=== PATIENT | male | born 1960 | race Caucasian/White ===

== ENCOUNTER 2018-03-21 07:24 | Day surgery (SDC) | payer BC ==
--- NOTE | 2018-03-20 15:36 | HP ---
DATE OF SURGERY: 03/21/2018 ANTICIPATED PROCEDURE: Colonoscopy. Excision lesion left lower eyelid. HISTORY OF PRESENT ILLNESS: The patient has a papillomatous-like lesion on the left lower eyelid requiring excision or fulguration. He also presents for screening. He is referred by Dr. Mary. PAST MEDICAL HISTORY: ALLERGIES: NONE. MEDICATIONS: See list. PAST SURGICAL HISTORY: Cataract. SOCIAL HISTORY: Positive tobacco. Positive ETOH. FAMILY HISTORY: Negative. PHYSICAL EXAMINATION: VITAL SIGNS: Normal. CHEST: Clear. COR: Regular. ABDOMEN: No palpable organomegaly or mass. IMPRESSION: Screening colonoscopy and removal of lesion left lower eyelid.
[~2018-03-21 07:24] MED LIST: Sodium Chloride 0.9% 1000 ML 1,000 ML ONE; XYLOCAINE 1% HCL 20 ML MDV ONE
[2018-03-21] MEDS ORDERED: DEMEROL 50 MG SDV IV ONE (07:25)
[2018-03-21] MEDS ORDERED: VERSED 5 MG/5 ML IV ONE (07:25)
[2018-03-21] MEDS ORDERED: GlucaGen 1 MG IM ONE (07:25)
[2018-03-21] MEDS ORDERED: Lactated Ringers 1,000 ML IV SCH ×2 (07:30)
[2018-03-21] MEDS ORDERED: Lactated Ringers 1,000 ML IV ONE (07:38)
--- NOTE | 2018-03-21 10:49 | OP ---
SURGERY DATE/TIME: 03/21/2018 0945 PREOPERATIVE DIAGNOSES: 1) Probable skin cancer left infraorbital 1 cm. 2) Patient requiring screening colonoscopy. POSTOPERATIVE DIAGNOSES: 1) Probable skin cancer left infraorbital 1 cm. 2) Patient requiring screening colonoscopy. PROCEDURES: 1) Colonoscopy complete to cecum normal except for moderate internal hemorrhoids. 2) Excision of a suspect lesion left infraorbital 1 cm with a 2 cm elliptical excision and closure. SURGEON: Omega Dodge M.D. SECTION CHIEF: Zacarias Arrington M.D. ANESTHESIA: IV sedation local. COMPLICATIONS: None. CONDITION: Stable. INDICATION: A patient with the two above reasons. DESCRIPTION OF PROCEDURE: Taken to surgery. Routine prep and drape. Elliptical excision. Time out performed. Hemostasis obtained with electrocautery. 1% lidocaine excised with 0.5 mm margins. Hemostasis satisfactory. Closed with simple interrupted sutures #5-0 Prolene. Sterile ointment applied. Anal digital examination satisfactory. Scope introduced. IV sedation was titrated and a fairly generous amount was required. Comfort level was satisfactory. The scope advanced past the splenic and then through a fairly redundant upper colon over under the right side and then down to the base of the cecum, ileocecal valve. Base of the cecum slightly voluminous but no mucosal lesions were noted. There was an orange-yellow throughout the right side. On circumferential withdrawal no mucosal lesions were noted, moderate internal hemorrhoids. The patient tolerated the procedure satisfactorily. PLAN: Follow up in ten years.
[2018-03-21 13:51] VITALS: BP 126/76; PULSE 97; O2SAT 94
== END 2018-03-21 11:35 | disposition home or self-care (01) ==
LOC: SDC 07:24
PROVIDERS: ATTEND Surgery
DX: C44.119 Basal cell carcinoma of skin of left eyelid, including canthus (principal); Z12.11 Encounter for screening for malignant neoplasm of colon; K64.8 Other hemorrhoids
CPT/HCPCS: 88305; J1610; J2175; J2250

== ENCOUNTER 2019-06-12 21:33 | Emergency (ER) | payer BC ==
[2019-06-12 22:23] VITALS: O2SAT 98
[2019-06-12 22:56] LABS: BASOPHIL % 0.5 % (0.0-0.4); Basophil (Absolute #) 0.03 (0-0.4); Eosinophil % 3.2 % (0.00-5.0); Eosinophil (Absolute #) 0.21 (0-0.5); Granulocyte Absolute (ANC) 3.65 (1.4-6.9); Granulocytes % 55.1 % (36.0-66.0); Hematocrit 36.9 % (42-50); Lymphocyte (Absolute #) 1.77 (1.0-4.6); Lymphocytes % 26.7 % (24.0-44.0); Mean Cell Volume 96.1 fl (78-100); Mean Corpuscular Hemoglobin 33.8 pg (26-32); Mean Corpuscular Hgb Concent. 35.2 g/dl (32-36); Mean Platelet Volume 9.5 fl (6-9.5); Monocyte (Absolute #) 0.96 (0.0-1.3); Monocytes % 14.5 % (0.0-12.0); Platelet Count 194 K/mm3 (150-450); Red Blood Count 3.84 M/mm3 (4.1-5.6); Red Cell Distribution Width 11.5 % (11.5-14.0); White Blood Count 6.6 K/mm3 (4.0-10.5)
[2019-06-12 23:01] LABS: ALBUMIN 4.4 g/dL (3.5-5.0); ALKALINE PHOSPHATASE 66 U/L (38-126); ANION GAP 16.2 MEQ/L (5-15); BLOOD UREA NITROGEN 5 mg/dL (9-20); CHLORIDE 96 mmol/L (98-107); Carbon Dioxide 23 mmol/L (22-30); Creatinine 1 0.73 mg/dL (0.66-1.25); Glucose 94 mg/dL (74-106); Potassium 3.7 mmol/L (3.5-5.1); SGOT/AST 82 U/L (17-59); SGPT/ALT 26 U/L (0-50); SODIUM 131 mmol/L (137-145); Total Protein 7.6 g/dL (6.3-8.2)
--- NOTE | 2019-06-13 00:26 | ERPHSYRPT ---
- History of Present Illness Source: patient Exam Limitations: no limitations Patient Subjective Stated Complaint: pt states, "I woke up Sunday night in a sweat, covers were wet, I was up all night. I went to work Sunday and couldn't stay, I was sweating. I went home and went to bed. I got up Sunday to go to work but I called in and went to the Dr. Labwork drawn on and called pt and requested pt be seen in ER. Pt went back to at 4:30 pm and pt was sent to ER. pt's had some sob with this as well. Triage Nursing Assessment: pt alert and oriented, pleasant. Lungs clear, heart tones reg, abd soft with active bs x4 quad, non-tender. Pt denies any pain but states his chest region is sore if he takes a deep breath. Physician History: Pt is a 58 y/o male that presented to the ED secondary to elevated D dimer, and referal from his PCP. Pt did not feel well for a few days, and he saw his PCP, that send him to do some labs. His D dimer was very high, and the PCP, told him to go to the ER, for a CT angio to r/o PE. Pt denies SOB or cough. No chest pain or palpitations. He did have chills and sweats, but no fever. No dysuria, frequency and urgency. No N/V/D or abdominal pain. Timing/Duration: day(s) Severity: moderate Modifying Factors: Improves With: immobilization, rest, acetaminophen, ibuprofen Associated Symptoms: diaphoresis Allergies/Adverse Reactions: No Known Drug Allergies Allergy (Unverified 02/27/12 16:10) Home Medications: Alprazolam 0.5 mg [xanAX 0.5 MG] 0.5 mg PO BID 02/27/12 [History] Lisinopril 20 mg PO DAILY 02/27/12 [History] Omeprazole 20 MG [Prilosec 20 mg] 1 tab PO DAILY 02/27/12 [History] Telmisartan [Micardis] 20 mg PO DAILY 03/15/18 [History] Hydrocodone/Acetaminophen [Hydrocodone-Acetamin 7.5-325] 1 tab PO Q4H PRN PRN [History] Hx Tetanus, Diphtheria Vaccination/Date Given: No Hx Influenza Vaccination/Date Given: No Hx Pneumococcal Vaccination/Date Given: No Immunizations Up to Date: No - Review of Systems Constitutional: Chills, Malaise, Other (diaphoresis) Eyes: No Symptoms Ears, Nose, & Throat: No Symptoms Respiratory: No Cough, No Dyspnea Cardiac: No Chest Pain, No Edema, No Syncope Abdominal/Gastrointestinal: No Abdominal Pain, No Nausea, No Vomiting, No Diarrhea Genitourinary Symptoms: No Dysuria Musculoskeletal: No Back Pain, No Neck Pain Neurological: No Dizziness, No Focal Weakness, No Sensory Changes - Past Medical History Pertinent Past Medical History: Yes Neurological History: No Pertinent History ENT History: Cataracts Cardiac History: Hypertension Respiratory History: No Pertinent History Endocrine Medical History: No Pertinent History Musculoskeletal History: No Pertinent History GI Medical History: GERD History: No Pertinent History Psycho-Social History: No Pertinent History Male Reproductive Disorders: No Pertinent History - Past Surgical History Past Surgical History: Yes Neuro Surgical History: No Pertinent History Cardiac: No Pertinent History Respiratory: No Pertinent History Gastrointestinal: No Pertinent History Genitourinary: No Pertinent History Musculoskeletal: No Pertinent History Male Surgical History: No Pertinent History Other Surgical History: left cataract removed 01/31/2012, skin cancer - Social History Smoking Status: Never smoker Exposure to second hand smoke: No Drug Use: marijuana Patient Lives Alone: Yes - Nursing Vital Signs Nursing Vital Signs: Initial Vital Signs Temperature 98.6 F 06/12/19 21:34 Pulse Rate 81 06/12/19 21:34 Respiratory Rate 17 06/12/19 21:34 Blood Pressure 145/97 06/12/19 21:34 O2 Sat by Pulse Oximetry 98 06/12/19 21:34 Pain Scale Pain Intensity 0 - Physical Exam General Appearance: no apparent distress Eye Exam: PERRL/EOMI, eyes nml inspection Ears, Nose, Throat Exam: normal ENT inspection, TMs normal, pharynx normal, moist mucous membranes Neck Exam: normal inspection, non-tender, supple, full range of motion Respiratory Exam: normal breath sounds, lungs clear, No respiratory distress Cardiovascular Exam: regular rate/rhythm, normal heart sounds, normal peripheral pulses Gastrointestinal/Abdomen Exam: soft, normal bowel sounds, No tenderness, No mass Back Exam: normal inspection, normal range of motion, No CVA tenderness, No vertebral tenderness Extremity Exam: normal inspection, normal range of motion, pelvis stable Neurologic Exam: alert, 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, cooperative, normal mood/affect, nml cerebellar function, nml station & gait, sensation nml, No motor deficits SpO2: 98 - Course Nursing assessment & vital signs reviewed: Yes - CT Exams Chest CT Interpretation: Negative (No PE, no chest pathology) Ordered Tests: Active Orders 24 hr Category Date Time Status CHEST WITH CONTRAST [CT] Stat Exams 06/12/19 23:38 Taken CBC W DIFF Stat Lab 06/12/19 22:27 Completed CMP Stat Lab 06/12/19 22:27 Completed D-DIMER QUANTITATION Stat Lab 06/12/19 22:27 Completed Lactic Acid Stat Lab 06/12/19 22:49 Completed Lab/Rad Data: Laboratory Result Diagrams 06/12/19 22:27 06/12/19 22:27 Laboratory Results 06/12/19 06/12/19 06/12/19 Range/Units 22:49 22:27 22:27 WBC (4.0-10.5) K/mm3 RBC (4.1-5.6) M/mm3 Hgb (12.5-18.0) gm/dl Hct (42-50) % MCV (78-100) fl MCH (26-32) pg MCHC (32-36) g/dl RDW (11.5-14.0) % Plt Count (150-450) K/mm3 MPV (6-9.5) fl Gran % (36.0-66.0) % Eos # (Auto) (0-0.5) Absolute Lymphs (auto) (1.0-4.6) Absolute Monos (auto) (0.0-1.3) Lymphocytes % (24.0-44.0) % Monocytes % (0.0-12.0) % Eosinophils % (0.00-5.0) % Basophils % (0.0-0.4) % Absolute Granulocytes (1.4-6.9) Basophils # (0-0.4) D-Dimer 2767 H* (215-500) ng/mL Sodium 131 L (137-145) mmol/L Potassium 3.7 (3.5-5.1) mmol/L Chloride 96 L (98-107) mmol/L Carbon Dioxide 23 (22-30) mmol/L Anion Gap 16.2 H (5-15) MEQ/L BUN 5 L (9-20) mg/dL Creatinine 0.73 (0.66-1.25) mg/dL Estimated GFR > 60.0 ML/MIN Glucose 94 (74-106) mg/dL Lactic Acid 1.8 (0.4-2.0) Calcium 9.0 (8.4-10.2) mg/dL Total Bilirubin 0.50 (0.2-1.3) mg/dL AST 82 H (17-59) U/L ALT 26 (0-50) U/L Alkaline Phosphatase 66 (38-126) U/L Serum Total Protein 7.6 (6.3-8.2) g/dL Albumin 4.4 (3.5-5.0) g/dL 06/12/19 Range/Units 22:27 WBC 6.6 (4.0-10.5) K/mm3 RBC 3.84 L (4.1-5.6) M/mm3 Hgb 13.0 (12.5-18.0) gm/dl Hct 36.9 L (42-50) % MCV 96.1 (78-100) fl MCH 33.8 H (26-32) pg MCHC 35.2 (32-36) g/dl RDW 11.5 (11.5-14.0) % Plt Count 194 (150-450) K/mm3 MPV 9.5 (6-9.5) fl Gran % 55.1 (36.0-66.0) % Eos # (Auto) 0.21 (0-0.5) Absolute Lymphs (auto) 1.77 (1.0-4.6) Absolute Monos (auto) 0.96 (0.0-1.3) Lymphocytes % 26.7 (24.0-44.0) % Monocytes % 14.5 H (0.0-12.0) % Eosinophils % 3.2 (0.00-5.0) % Basophils % 0.5 (0.0-0.4) % Absolute Granulocytes 3.65 (1.4-6.9) Basophils # 0.03 (0-0.4) D-Dimer (215-500) ng/mL Sodium (137-145) mmol/L Potassium (3.5-5.1) mmol/L Chloride (98-107) mmol/L Carbon Dioxide (22-30) mmol/L Anion Gap (5-15) MEQ/L BUN (9-20) mg/dL Creatinine (0.66-1.25) mg/dL Estimated GFR ML/MIN Glucose (74-106) mg/dL Lactic Acid (0.4-2.0) Calcium (8.4-10.2) mg/dL Total Bilirubin (0.2-1.3) mg/dL AST (17-59) U/L ALT (0-50) U/L Alkaline Phosphatase (38-126) U/L Serum Total Protein (6.3-8.2) g/dL Albumin (3.5-5.0) g/dL - Progress Progress: unchanged Progress Note: 06/13/19 00:25 Pt was seen and examined. His only abnormal lab was D Dimer. Chest for PE study, was negative. Pt was advised to f/u with his PCP for more work up, if needed. Will see patient in: office Counseled pt/family regarding: need for follow-up - Departure Departure Disposition: Home Clinical Impression: Elevated d-dimer Condition: Stable Critical Care Time: No Referrals: WALTER KHALIL [Primary Care Provider] - Additional Instructions: F/U with PCP for more work up.
[2019-06-13 00:28] VITALS: BP 116/79; PULSE 76
--- NOTE | 2019-06-13 09:21 | XRAY ---
Indication: Short of breath and elevated d-dimer. Multiple contiguous axial images obtained through the chest using 80 cc Isovue 370 contrast and PE protocol. Comparison: None There is good opacification of the pulmonary arteries to include the lobar and segmental branches. No filling defect or pulmonary embolus. Heart is not enlarged. Aorta is normal in course and caliber. Distal right paratracheal calcified node. No pathologic mediastinal/hilar lymphadenopathy. Lungs are inflated and clear. Bony thorax intact. Limited upper abdomen demonstrates tiny calcified splenic granuloma and incompletely visualized minimal left perinephric stranding of uncertain clinical significance. Impression: 1. Negative pulmonary embolus. No acute cardiopulmonary abnormalities. 2. Incompletely visualized minimal left perinephric stranding. CT abdomen/pelvis may yield further information if clinically warranted. Comment: Preliminary interpretation was made by [facility] who does not report incidental left renal finding. CT DI 19.60
== END 2019-06-13 00:35 | disposition home or self-care (01) ==
LOC: ED 21:33
DX: R79.89 Other specified abnormal findings of blood chemistry (principal)
CPT/HCPCS: 36415; 71260; 80053; 83605; 85025; 85379; 99284

== ENCOUNTER 2023-05-06 17:47 | Emergency (ER) | payer BC ==
[2023-05-06 18:13] VITALS: TEMP 97
[2023-05-06] MEDS ORDERED: Sodium Chloride 0.9% 1000 ML 1,000 ML IV STA (18:18)
[2023-05-06 18:19] LABS: Absolute Neutrophil Ct (ANC) 8.68 x10^3/uL (1.4-6.9); BASOPHIL % 0.2 % (0.0-0.4); Basophil (Absolute #) 0.02 x10^3/uL (0-0.4); Eosinophil (Absolute #) 0 x10^3/uL (0-0.5); Hematocrit 45.1 % (42-50); Hemoglobin 15.5 g/dL (12.5-18.0); IMMATURE GRAN # 0.09 x10^3u/L (0.00-0.03); IMMATURE GRAN % 0.9 % (0.00-0.4); Lymphocyte (Absolute #) 0.65 x10^3/uL (1.0-4.6); Lymphocytes % 6.5 % (24.0-44.0); Mean Cell Volume 97.4 fL (78-100); Mean Corpuscular Hemoglobin 33.5 pg (26-32); Mean Corpuscular Hgb Concent. 34.4 g/dL (32-36); Mean Platelet Volume 8.6 fL (7.5-11.0); Monocyte (Absolute #) 0.52 x10^3/uL (0.0-1.3); Monocytes % 5.2 % (0.0-12.0); Neutrophil % 87.2 % (36.0-66.0); Platelet Count 242 x10^3/uL (150-450); Red Blood Count 4.63 x10^6/uL (4.1-5.6); Red Cell Distribution Width 12.3 % (11.5-14.0)
--- NOTE | 2023-05-06 18:28 | ERPHSYRPT ---
- History of Present Illness Time Seen by Provider: 05/06/23 18:23 Source: patient Exam Limitations: no limitations Patient Subjective Stated Complaint: Pt reports he was walking down the steps when he lost consciousness causing him to fall and hit his head. Later when try ing to leave the house and get in vehicle pt lost consciousness. Pt reports he is on blood thinners. Skin tear to left hand and laceration to back of head. Triage Nursing Assessment: Pt alert and oriented x3. No apparent respiratory distress. Wheeled to ED cot by family, transferred with assist x1. Accompanied by brother. Skin flushed, warm, dry. Tremors observed. Laceration to back of head, 4cm. Skin tear to top of left hand. Physician History: Pt reports he was walking down the steps when he lost consciousness causing him to fall and hit his head. Later when trying to leave the house and get in vehicle pt lost consciousness. Pt reports he is on blood thinners. Skin tear to left hand and laceration to back of head. Witnessed: unwitnessed Prior Episodes: single episode today Timing/Duration: today Precipitating Factors: none Context: standing Loss of Consciousness: brief (seconds) Charcter of event(s): almost passed out Allergies/Adverse Reactions: No Known Drug Allergies Allergy (Unverified 02/27/12 16:10) Home Medications: ALPRAZolam 0.5 MG [xanAX 0.5 MG] 0.5 mg PO BID PRN 02/27/12 [History] Lisinopril 20 mg PO DAILY 02/27/12 [History] Omeprazole 20 MG [Prilosec 20 mg] 1 tab PO DAILY 02/27/12 [History] Hydrocodone/Acetaminophen [Hydrocodone-Acetamin 7.5-325] 1 tab PO Q4H PRN PRN 03/21/18 [History] Clopidogrel Bisulfate [Plavix] 75 mg PO DAILY 05/06/23 [History] Metoprolol Tartrate 25 mg [Lopressor 25MG Tab] 25 mg PO BID 05/06/23 [History] Hx Tetanus, Diphtheria Vaccination/Date Given: Yes Hx Influenza Vaccination/Date Given: No Hx Pneumococcal Vaccination/Date Given: No Travel Risk - International Travel Have you traveled outside of the country in past 3 weeks: No - Coronavirus Screening Are you exhibiting any of the following symptoms?: No Close contact with a COVID-19 positive Pt in past 14-21 Days: No - Vaccine Status Have you recieved a Covid-19 vaccination: No - Past Medical History Pertinent Past Medical History: Yes Neurological History: No Pertinent History ENT History: Cataracts Cardiac History: Hypertension Respiratory History: No Pertinent History Endocrine Medical History: No Pertinent History Musculoskeletal History: No Pertinent History GI Medical History: GERD History: No Pertinent History Psycho-Social History: Depression Male Reproductive Disorders: No Pertinent History - Past Surgical History Past Surgical History: Yes Neuro Surgical History: No Pertinent History Cardiac: No Pertinent History Respiratory: No Pertinent History Gastrointestinal: No Pertinent History Genitourinary: No Pertinent History Musculoskeletal: No Pertinent History Male Surgical History: No Pertinent History Other Surgical History: left cataract removed 01/31/2012, skin cancer - Social History Smoking Status: Never smoker Exposure to second hand smoke: No Drug Use: none Patient Lives Alone: Yes - Review of Systems Constitutional: Weakness, No Fever, No Chills Eyes: No Symptoms Ears, Nose, & Throat: No Symptoms Respiratory: No Cough, No Dyspnea Cardiac: No Chest Pain, No Edema, No Syncope Abdominal/Gastrointestinal: No Abdominal Pain, No Nausea, No Vomiting, No Diarrhea Genitourinary Symptoms: No Dysuria Musculoskeletal: No Back Pain, No Neck Pain Skin: Other (laceration on scalp), No Rash Neurological: No Dizziness, No Focal Weakness, No Sensory Changes Psychological: No Symptoms Endocrine: No Symptoms Hematologic/Lymphatic: No Symptoms All Other Systems: Reviewed and Negative Physical Exam - Nursing Vital Signs Nursing Vital Signs: Initial Vital Signs Temperature 97 F 05/06/23 17:57 Pulse Rate 111 H 05/06/23 17:57 Respiratory Rate 22 05/06/23 17:57 Blood Pressure 136/90 05/06/23 17:57 O2 Sat by Pulse Oximetry 100 05/06/23 17:57 Pain Scale Pain Intensity 0 - [place] Coma Scale Best Eye Response ([place]): (4) open spontaneously Best Verbal Response ([place]): (5) oriented Best Motor Response ([place]): (6) obeys commands [place] Total: 15 - Physical Exam General Appearance: no apparent distress, alert Eye Exam: bilateral eye: PERRL, EOMI Ears, Nose, Throat Exam: normal ENT inspection, pharynx normal, moist mucous m embranes Neck Exam: normal inspection, non-tender, supple, full range of motion Respiratory: normal breath sounds, lungs clear, No chest tenderness, No respiratory distress Cardiovascular: regular rate/rhythm, capillary refill <2 sec, No murmur, No pulse deficit Gastrointestinal: soft, No tenderness, No distention, No mass Back Exam: normal inspection, normal range of motion, No CVA tenderness, No vertebral tenderness Extremity Exam: normal inspection, normal range of motion, pelvis stable, No tenderness 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, 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, 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 Exam: normal speech, PERRL, No facial droop Coordination/Gait: normal finger to nose Motor/Sensory: no motor deficit, no sensory deficit, no pronator drift Skin Exam: normal color, warm, dry, other (occipital scalp laceration), No rash SpO2: 100 Procedures - Laceration/Wound Repair Occipital Time of Procedure: 19:17 Wound Location: head Wound Length (cm): 7 Wound's Depth, Shape: superficial, linear Wound Explored: clean Irrigated: Yes Hibiclens Prep: Yes Anesthesia: local, 1% Lidocaine Volume Anesthetic (ccs): 3 Wound Debrided: minimal Wound Repaired With: [place] (7 edu) Layer Closure?: No Number Deep Layer Sutures: 7 Sterile Dressing Applied?: Yes - Course Nursing assessment & vital signs reviewed: Yes - CT Exams Head CT Interpretation: Tele-radiologist Report Ordered Tests: Active Orders 24 hr Category Date Time Status Sutures STAT Care 05/06/23 18:18 Active HEAD WITHOUT CONTRAST [CT] Stat Exams 05/06/23 18:18 Completed CBC W DIFF Stat Lab 05/06/23 18:00 Completed CMP Stat Lab 05/06/23 18:00 Completed ETHYL ALCOHOL Stat Lab 05/06/23 18:00 Completed POCT GLUCOSE Stat Lab 05/06/23 17:56 Completed POCT GLUCOSE Stat Lab 05/06/23 18:36 Completed TROPONIN Stat Lab 05/06/23 18:09 Completed UA W/RFX UR CULTURE Stat Lab 05/06/23 18:10 Ordered Medication Summary Discontinued Medications Generic Name Dose Route Start Last Admin Trade Name Freq PRN Reason Stop Dose Admin Dextrose/Sodium Chloride 1,000 mls @ 100 mls/hr 05/06/23 18:30 Dextrose 5%-Ns Iv Solution 1000 Ml IV 06/05/23 18:29 .Q10H DOYLE Sodium Chloride 1,000 mls @ 999 mls/hr 05/06/23 18:18 05/06/23 19:06 Sodium Chloride 0.9% 1000 Ml IV 05/06/23 19:18 Not Given .Q1H1M STA Lactated Ringer's 1,000 mls @ 999 mls/hr 05/06/23 18:45 05/06/23 18:52 Lactated Ringers IV 05/06/23 19:45 999 mls/hr .Q1H1M ONE Administration Lactated Ringer's Confirm 05/06/23 18:50 Lactated Ringers Administered 05/06/23 18:51 Dose 1,000 mls @ ud IV .STK-MED ONE Ondansetron HCl 4 mg 05/06/23 18:42 05/06/23 18:53 Ondansetron Hcl 4 Mg/2 Ml Vial IV 05/06/23 18:43 4 mg STAT ONE Administration Ondansetron HCl Confirm 05/06/23 18:50 Ondansetron Hcl 4 Mg/2 Ml Vial Administered 05/06/23 18:51 Dose 4 mg .ROUTE .STK-MED ONE Lab/Rad Data: Laboratory Result Diagrams 05/06/23 18:00 05/06/23 18:00 Laboratory Results 05/06/23 05/06/23 05/06/23 Range/Units 18:36 18:09 18:00 WBC (4.0-10.5) x10^3/uL RBC (4.1-5.6) x10^6/uL Hgb (12.5-18.0) g/dL Hct (42-50) % MCV (78-100) fL MCH (26-32) pg MCHC (32-36) g/dL RDW (11.5-14.0) % Plt Count (150-450) x10^3/uL MPV (7.5-11.0) fL Gran % (36.0-66.0) % Immature Gran % (Auto) (0.00-0.4) % Nucleat RBC Rel Count (0.00-0.1) % Eos # (Auto) (0-0.5) x10^3/uL Immature Gran # (Auto) (0.00-0.03) x10^3u/L Absolute Lymphs (auto) (1.0-4.6) x10^3/uL Absolute Monos (auto) (0.0-1.3) x10^3/uL Absolute Nucleated RBC (0.00-0.01) x10^3u/L Lymphocytes % (24.0-44.0) % Monocytes % (0.0-12.0) % Eosinophils % (0.00-5.0) % Basophils % (0.0-0.4) % Absolute Granulocytes (1.4-6.9) x10^3/uL Basophils # (0-0.4) x10^3/uL Sodium 135 L (137-145) mmol/L Potassium 4.0 (3.5-5.1) mmol/L Chloride 92 L (98-107) mmol/L Carbon Dioxide 10 L* (22-30) mmol/L Anion Gap 35.4 H (5-15) MEQ/L BUN 15 (9-20) mg/dL Creatinine 0.99 (0.66-1.25) mg/dL Estimated GFR > 60.0 ML/MIN Glucose 58 L (74-106) mg/dL POC Glucometer 65 L (74 to 106) mg/dL Calcium 9.5 (8.4-10.2) mg/dL Total Bilirubin 0.70 (0.2-1.3) mg/dL AST 132 H (17-59) U/L ALT 47 (0-50) U/L Alkaline Phosphatase 93 (38-126) U/L Troponin I < 0.012 (0.000-0.034) ng/mL Serum Total Protein 9.3 H (6.3-8.2) g/dL Albumin 5.1 H (3.5-5.0) g/dL Ethyl Alcohol 67 H (0-10) mg/dL 05/06/23 05/06/23 Range/Units 18:00 17:56 WBC 10.0 (4.0-10.5) x10^3/uL RBC 4.63 (4.1-5.6) x10^6/uL Hgb 15.5 (12.5-18.0) g/dL Hct 45.1 (42-50) % MCV 97.4 (78-100) fL MCH 33.5 H (26-32) pg MCHC 34.4 (32-36) g/dL RDW 12.3 (11.5-14.0) % Plt Count 242 (150-450) x10^3/uL MPV 8.6 (7.5-11.0) fL Gran % 87.2 H (36.0-66.0) % Immature Gran % (Auto) 0.9 H (0.00-0.4) % Nucleat RBC Rel Count 0.0 (0.00-0.1) % Eos # (Auto) 0 (0-0.5) x10^3/uL Immature Gran # (Auto) 0.09 H (0.00-0.03) x10^3u/L Absolute Lymphs (auto) 0.65 L (1.0-4.6) x10^3/uL Absolute Monos (auto) 0.52 (0.0-1.3) x10^3/uL Absolute Nucleated RBC 0.00 (0.00-0.01) x10^3u/L Lymphocytes % 6.5 L (24.0-44.0) % Monocytes % 5.2 (0.0-12.0) % Eosinophils % 0.0 (0.00-5.0) % Basophils % 0.2 (0.0-0.4) % Absolute Granulocytes 8.68 H (1.4-6.9) x10^3/uL Basophils # 0.02 (0-0.4) x10^3/uL Sodium (137-145) mmol/L Potassium (3.5-5.1) mmol/L Chloride (98-107) mmol/L Carbon Dioxide (22-30) mmol/L Anion Gap (5-15) MEQ/L BUN (9-20) mg/dL Creatinine (0.66-1.25) mg/dL Estimated GFR ML/MIN Glucose (74-106) mg/dL POC Glucometer 59 L (74 to 106) mg/dL Calcium (8.4-10.2) mg/dL Total Bilirubin (0.2-1.3) mg/dL AST (17-59) U/L ALT (0-50) U/L Alkaline Phosphatase (38-126) U/L Troponin I (0.000-0.034) ng/mL Serum Total Protein (6.3-8.2) g/dL Albumin (3.5-5.0) g/dL Ethyl Alcohol (0-10) mg/dL CT/HEAD WITHOUT CONTRAST CLINICAL HISTORY:head injury COMPARISON:03/16/2010. TECHNIQUE:Non-enhanced CT scan of the brain was performed in axial plane with multiplanar reconstructions in bony and soft tissue windows. FINDINGS: Accentuated hypodensity of the deep periventricular white matter. Age-related cerebral atrophic changes as evidenced by mild prominence of cisternal and sulcal spaces and prominent lateral ventricles. No suspicious space-occupying lesions. No intra or extra-axial collections of fresh blood density. Basal ganglia, thalamus and internal capsule appear normal. No shift of midline structures. Unremarkable posterior fossa. Preserved cranial calvarial bones. Visualized paranasal sinuses appear clear. Small extracranial subgaleal hematoma seen at the left high parietal region. IMPRESSION: 1. White matter chronic ischemic changes. 2. Age-matched cerebral atrophic changes. 3. No acute intracranial abnormality. 4. Left high parietal subgaleal hematoma. - Progress Progress: improved Counseled pt/family regarding: drug and/or alcohol abuse, lab results, diagnosis, need for follow-up, rad results, smoking cessation Medical Desision Making - Independent Historian Additional History obtained from: Relative/friend - Diagnostic Testing Diagnostic test were ordered, analyzed, and reviewed by me: Yes Radiological Interpretation: Interpreted by me, Teleradiologist Report - Risk of complications The pt has a mod risk of morbidity or mortality based on: Need for prescription drug management, Need for minor surgical intervention in patient with know risk factors The pt has a high risk of morbidity or mortality based on: Drug therapy requir ing intensive monitoring for toxicity - Departure Departure Disposition: Home Clinical Impression: Syncope and collapse, Hypoglycemia, Alcohol use Laceration of head Qualifiers: Encounter type: initial encounter Location of open wound of head: scalp Foreign body presence: without foreign body Qualified Code(s): S01.01XA - Laceration without foreign body of scalp, initial encounter Left parietal scalp hematoma Qualifiers: Encounter type: initial encounter Qualified Code(s): S00.03XA - Contusion of scalp, initial encounter Head injury due to trauma Qualifiers: Encounter type: initial encounter Qualified Code(s): S09.90XA - Unspecified injury of head, initial encounter Condition: Stable Critical Care Time: Yes Critical Care Time(excluding separately billable procedures): Critical 30-74 mins Referrals: WALTER KHALIL [Primary Care Provider] - Follow up/PCP as directed Instructions: Laceration Repair With Edu (DC), Syncope (Fainting) (DC), Head injury in adults, Head Injury in Adults (DC), Postconcussion Syndrome (DC) Additional Instructions: Discharge/Care Plan AN HART was seen on 05/06/23 in the Emergency Room. The patient was counseled regarding Diagnosis,Lab results, Imaging studies, need for follow up and when to return to the Emergency Room. Prescriptions given: Discharge Note I have spoken with the patient and/or caregivers. I have explained the patient's condition, diagnosis and treatment plan based on the information available to me at this time. I have answered the patient's and/or caregiver's questions and addressed any concerns. The patient and/or caregivers have as good understanding of the patient's diagnosis, condition and treatment plan as can be expected at this point. The vital signs have been stable. The patient's condition is stable and appropriate for discharge from the emergency department. The patient will pursue further outpatient evaluation with the primary care physician or other designated or consulting physician as outlined in the discharge instructions. The patient and/or caregivers are agreeable to this plan of care and follow-up instructions have been explained in detail. The patient and/or caregivers have received these instruction. The patient/and or caregivers are aware that any significant change in condition or worsening of symptoms should prompt an immediate return to this or the closest emergency department or call 911. AN HART was seen on 05/06/23 n the Emergency Room. At that time you were treated for an emergent condition, during your visit Laboratory, Radiology and/or other procedures may have been ordered. It is very important that you follow-up with your Primary Care Physician WALTER KHALIL within the next 24-48 hours to review your Emergency Room visit and the final results of testing that was ordered. Some test results such as Urine Cultures, Blood Cultures, and other cultures if ordered will not be finalized for 24-48 hours. If you do not have a Primary Care Provider please call the medical records department at [phone] ext [phone] to obtain a copy of your results or you may sign into our patient portal to obtain these results by visiting us @ [email or web address] and completing the following steps: 1. Click on the Patient Portal link 2. Click the Patient Self Enrollment Link to complete the enrollment form and entering your 3. Once the enrollment form is completed you will receive an email with a temporary ID and password at the email address you provided. 4. Next choose a user name and password. Your user name must be at least 4 characters long and your password must be at least 4 characters long. 5. Choose a security question from the list and provide your answer to the question. If you already have signed into the Health Portal you may access your Health Care Information 07/05 by the following steps: 1. Login to our website @ [email or web address] 2. Enter your original user name and password. FAQS The [facility] Health Portal is an online tool that contains your Lab Results, Radiology Reports, Visit History, Discharge Instructions and Health Summary Lab and Radiology Results will not be available for 72 hours on the portal. The Portal is a secure site, passwords are encryted and URLs are re-written so they cannot be copied and pasted. You and authorized family members are the only ones who can access your Portal. Also there is a timeout feature that protects your information if you leave the Portal page open. If you have technical difficulty please use the Contact Us link on the page this will allow you to submit any questions you have regarding the Portal or you may contact the Medical Record Department at [phone] ext [phone].
[2023-05-06] MEDS ORDERED: Dextrose 5%-NS IV Solution 1000 ML 1,000 ML IV SCH (18:30)
[2023-05-06 18:32] LABS: ALBUMIN 5.1 g/dL (3.5-5.0); ALKALINE PHOSPHATASE 93 U/L (38-126); ANION GAP 35.4 MEQ/L (5-15); BLOOD UREA NITROGEN 15 mg/dL (9-20); CHLORIDE 92 mmol/L (98-107); Calcium 9.5 mg/dL (8.4-10.2); Creatinine 1 0.99 mg/dL (0.66-1.25); EST GLOMERULAR FILTRATION RATE > 60.0 ML/MIN; ETHYL ALCOHOL 67 mg/dL (0-10); Glucose 58 mg/dL (74-106); SGOT/AST 132 U/L (17-59); SGPT/ALT 47 U/L (0-50); SODIUM 135 mmol/L (137-145); Total Protein 9.3 g/dL (6.3-8.2)
[2023-05-06 18:40] LABS: Carbon Dioxide 10 mmol/L (22-30)
[2023-05-06] MEDS ORDERED: Zofran 4 MG/2 ML VIAL IV ONE (18:42)
[2023-05-06] MEDS ORDERED: Lactated Ringers 1,000 ML IV ONE ×2 (18:45→18:50)
[2023-05-06] MEDS ORDERED: Zofran 4 MG/2 ML VIAL ONE (18:50)
[2023-05-06 19:18] VITALS: O2SAT 100
--- NOTE | 2023-05-06 19:53 | XRAY ---
CLINICAL HISTORY:head injury COMPARISON:03/16/2010. TECHNIQUE:Non-enhanced CT scan of the brain was performed in axial plane with multiplanar reconstructions in bony and soft tissue windows. FINDINGS: Accentuated hypodensity of the deep periventricular white matter. Age-related cerebral atrophic changes as evidenced by mild prominence of cisternal and sulcal spaces and prominent lateral ventricles. No suspicious space-occupying lesions. No intra or extra-axial collections of fresh blood density. Basal ganglia, thalamus and internal capsule appear normal. No shift of midline structures. Unremarkable posterior fossa. Preserved cranial calvarial bones. Visualized paranasal sinuses appear clear. Small extracranial subgaleal hematoma seen at the left high parietal region. IMPRESSION: 1. White matter chronic ischemic changes. 2. Age-matched cerebral atrophic changes. 3. No acute intracranial abnormality. 4. Left high parietal subgaleal hematoma. Electronically Signed by: Ester Duke MD. (05/06/2023 18:50:54 HOSPITAL LIBRARIAN)
[2023-05-06 20:23] VITALS: BP 133/90; PULSE 125; RESP 18
[2023-05-06] MEDS ORDERED: TYLENOL EXTRA STRENGTH 500 MG PO STA (20:39)
[2023-05-06] MEDS ORDERED: TYLENOL EXTRA STRENGTH 500 MG ONE (20:40)
== END 2023-05-06 20:43 | disposition home or self-care (01) ==
LOC: ED 17:47
DX: R55 Syncope and collapse (principal); E16.2 Hypoglycemia, unspecified; F10.90 Alcohol use, unspecified, uncomplicated; S01.01XA Laceration without foreign body of scalp, initial encounter; S00.03XA Contusion of scalp, initial encounter; S09.90XA Unspecified injury of head, initial encounter; W10.9XXA Fall (on) (from) unspecified stairs and steps, initial encounter; I10 Essential (primary) hypertension; Z79.02 Long term (current) use of antithrombotics/antiplatelets; Z79.899 Other long term (current) drug therapy; Z28.310 Unvaccinated for COVID-19
CPT/HCPCS: 12002; 36000; 36415; 70450; 80053; 82077; 82947; 84484; 85025; 93005; 96360; 96374; 99284; 99291; J2405; A9270-GY

== ENCOUNTER 2025-06-25 13:41 | Inpatient (IN) | payer SELFPAY ==
[2025-06-25] MEDS ORDERED: Zofran 4 MG/2 ML VIAL ONE (14:09)
[2025-06-25] MEDS ORDERED: Hydromorphone 1 mg/ml Injection ONE ×2 (14:09→15:03)
[2025-06-25] MEDS: Zofran 4 MG/2 ML VIAL IV ONE (14:12)
[2025-06-25] MEDS: Hydromorphone 1 mg/ml Injection IV ONE ×2 (14:15→15:07)
[2025-06-25 14:30] LABS: BASOPHIL % 0.4 % (0.2-1.2); Basophil (Absolute #) 0.04 x10^3/uL (0.01-0.08); Eosinophil (Absolute #) 0.07 x10^3/uL (0.04-0.54); Hematocrit 38.6 % (40.1-51.0); Hemoglobin 13.6 g/dL (13.7-17.5); IMMATURE GRAN # 0.14 x10^3u/L (0.001-0.031); IMMATURE GRAN % 1.4 % (0.001-0.429); Lymphocyte (Absolute #) 1.07 x10^3/uL (1.32-3.57); Mean Corpuscular Hemoglobin 33.4 pg (25.7-32.2); Mean Corpuscular Hgb Concent. 35.2 g/dL (32.3-36.5); Monocyte (Absolute #) 1.00 x10^3/uL (0.30-0.82); NUCLEATED RBC # 0.00 x10^3u/L (0.00-0.012); NUCLEATED RBC % 0.0 % (0.00-0.2); Platelet Count 210 x10^3/uL (163-337); Red Blood Count 4.07 x10^6/uL (4.63-6.08); White Blood Count 9.7 x10^3/uL (4.23-9.07)
[2025-06-25 14:43] LABS: Calcium 8.5 mg/dL (8.4-10.2); Carbon Dioxide 26.0 mmol/L (22-30); Creatinine 1 0.6 mg/dL (0.66-1.25); EST GLOMERULAR FILTRATION RATE 109.1 ML/MIN; Glucose 111.0 mg/dL (74-106); Potassium 3.9 mmol/L (3.5-5.1); SGOT/AST 86.0 U/L (17-59); SGPT/ALT 45.0 U/L (0-50); Total Protein 7.4 g/dL (6.3-8.2)
[2025-06-25 14:45] LABS: INR 0.91 (0.8-3.0); PROTIME 10.0 SECONDS (9.4-12.5); PTT 26.0 SECONDS (25.1-36.5)
--- NOTE | 2025-06-25 14:54 | XRAY ---
Indication: Trauma. Fall. Comparison: October 05, 2022 Portable apical lordotic chest less inflated and remains clear. Heart not enlarged. Bony thorax intact again with osteopenia and degenerative changes. No new/acute findings.
--- NOTE | 2025-06-25 14:56 | XRAY ---
Indication: Trauma. Fall. Comparison: None AP pelvis and 2 view right hip demonstrates slightly impacted right subcapital femur fracture. Elsewhere osteopenia, mild lower lumbar degenerative spondylosis, and a few pelvic phleboliths.
[2025-06-25] MEDS: Ativan 2 MG/1 ML VIAL IV ONE (15:06)
[2025-06-25 15:11] LABS: ABO TYPING A; RH TYPING POSITIVE
[2025-06-25 15:41] LABS: Glucose, Urine Negative (Negative); Protein,Urine Dip Negative (Negative); RBC 0-2 /HPF (0-5); WBC 0-2 /HPF (0-5)
--- NOTE | 2025-06-25 16:54 | ERPHSYRPT ---
- History of Present Illness Patient Subjective Stated Complaint: PT STATES HE FELL ON SUNDAY AND SAT IN A CHAIR UNTIL TODAY URINATING IN SONIA JARS AND BUCKETS. PAIN IN RIGHT HIP AND LEG Triage Nursing Assessment: PT BROUGHT IN BY EMS AFTER FALLING DOWN 3 STAIRS ON SUNDAY AND ABLE TO GET IN THE RECLINER WHERE HE REMAINED UNTIL TODAY AND DECIDED TO CALL FOR HELP. PT IS ALERT/ORIENTED, HYPERTENSIVE, TACHY, SKIN WARM AND DRY, HYGIENE UNKEPT, SHORTENING OF RIGHT LEG, SWELLING TO RIGHT ANKLE Physician History: Transported via EMS from home, patient fell on Sunday injuring his right hip, He has been sitting in a chair as he is unable to stand, He continues to drink alcohol usually 12 beers a day, he denies any blood thinners, He denies any other injuries Timing/Duration: day(s) (4 days) Occured at: home Context: fall Quality: aching Hip Pain Location: hip (R) Severity of Pain-Max: severe Severity of Pain-Current: severe Modifying Factors: Improves With: movement Symptoms prior to fall: other (Does not recall, was drinking alcohol) Allergies/Adverse Reactions: No Known Drug Allergies Allergy (Unverified 02/27/12 16:10) Home Medications: ALPRAZolam 0.5 MG [xanAX 0.5 MG] 0.5 mg PO BID PRN 02/27/12 [History] Lisinopril 20 mg PO DAILY 02/27/12 [History] Omeprazole 20 MG [Prilosec 20 mg] 1 tab PO DAILY 02/27/12 [History] Hydrocodone/Acetaminophen [Hydrocodone-Acetamin 7.5-325] 1 tab PO Q4H PRN PRN 03/21/18 [History] Clopidogrel Bisulfate [Plavix] 75 mg PO DAILY 05/06/23 [History] Metoprolol Tartrate 25 mg [Lopressor 25MG Tab] 25 mg PO BID 05/06/23 [History] Hx Tetanus, Diphtheria Vaccination/Date Given: Yes Hx Influenza Vaccination/Date Given: No Hx Pneumococcal Vaccination/Date Given: No Travel Risk - International Travel Have you traveled outside of the country in past 3 weeks: No - Emerging Infectious Disease Are you exhibiting symptoms associated with any current EIDs: No - Past Medical History Pertinent Past Medical History: Yes Neurological History: No Pertinent History ENT History: Cataracts Cardiac History: Hypertension Respiratory History: No Pertinent History Endocrine Medical History: No Pertinent History Musculoskeletal History: No Pertinent History GI Medical History: GERD History: No Pertinent History Psycho-Social History: Depression Male Reproductive Disorders: No Pertinent History - Past Surgical History Past Surgical History: Yes Neuro Surgical History: No Pertinent History Cardiac: No Pertinent History Respiratory: No Pertinent History Gastrointestinal: No Pertinent History Genitourinary: No Pertinent History Musculoskeletal: No Pertinent History Male Surgical History: No Pertinent History Other Surgical History: left cataract removed 01/31/2012, skin cancer - Social History Smoking Status: Never smoker Exposure to second hand smoke: No Drug Use: marijuana - Social Determinants of Health Will the patient participate in the screening: Declined to provide - Nursing Vital Signs Nursing Vital Signs: Initial Vital Signs Temperature 98 F 06/25/25 13:44 Pulse Rate 106 H 06/25/25 13:44 Respiratory Rate 17 06/25/25 13:44 Blood Pressure 155/93 06/25/25 13:44 O2 Sat by Pulse Oximetry 98 06/25/25 13:44 Pain Scale Pain Intensity 8 - Physical Exam General Appearance: no apparent distress, alert Eye Exam: PERRL/EOMI, eyes nml inspection Ears, Nose, Throat Exam: normal ENT inspection, pharynx normal Neck Exam: normal inspection, non-tender, supple, full range of motion Respiratory Exam: normal breath sounds, lungs clear Cardiovascular Exam: regular rate/rhythm, normal heart sounds, normal peripheral pulses Gastrointestinal Exam: soft, normal bowel sounds, No tenderness Extremity Exam: deformities (Right hip externally rotated and shortened), limited range of motion (Right hip), pedal edema, tenderness (Right hip) Neurologic Exam: alert, 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, 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, 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, normal mood/affect Skin Exam: normal color, warm, dry SpO2 Interpretation: normal SpO2: 97 Ordered Tests: Active Orders 24 hr Category Date Time Status Catheter-[place] Olsen STAT Care 06/25/25 14:01 Active EKG-ER Only STAT Care 06/25/25 14:01 Active IV Insertion STAT Care 06/25/25 14:01 Active CHEST 1 VIEW (PORTABLE) Stat Exams 06/25/25 14:02 Completed HIP UNI (2V) INCL PEL IF DONE Stat Exams 06/25/25 14:02 Completed CBC W DIFF Stat Lab 06/25/25 14:15 Completed CMP Stat Lab 06/25/25 14:15 Completed CULTURE,URINE Stat Lab 06/25/25 15:15 Received PROTIME WITH INR Stat Lab 06/25/25 14:15 Completed PTT Stat Lab 06/25/25 14:15 Completed UA W/RFX UR CULTURE Stat Lab 06/25/25 15:15 Completed Medication Summary Discontinued Medications Generic Name Dose Route Start Last Admin Trade Name Abimael PRN Reason Stop Dose Admin Hydromorphone HCl 0.5 mg 06/25/25 14:01 06/25/25 14:15 Hydromorphone 1 Mg/1ml Inj IV 06/25/25 14:02 0.5 mg STAT ONE Administration Hydromorphone HCl Confirm 06/25/25 14:09 Hydromorphone 1 Mg/1ml Inj Administered 06/25/25 14:10 Dose 1 mg .ROUTE .STK-MED ONE Hydromorphone HCl 0.5 mg 06/25/25 14:55 06/25/25 15:07 Hydromorphone 1 Mg/1ml Inj IV 06/25/25 14:56 0.5 mg STAT ONE Administration Hydromorphone HCl Confirm 06/25/25 15:03 Hydromorphone 1 Mg/1ml Inj Administered 06/25/25 15:04 Dose 1 mg .ROUTE .STK-MED ONE Sodium Chloride 1,000 mls @ 999 mls/hr 06/25/25 14:01 06/25/25 15:20 Sodium Chloride 0.9% 1000 Ml IV 06/25/25 15:01 Infused .Q1H1M STA Infusion Sodium Chloride Confirm 06/25/25 14:10 Sodium Chloride 0.9% 1000 Ml Administered 06/25/25 14:11 Dose 1,000 mls @ ud .ROUTE .STK-MED ONE Lorazepam 1 mg 06/25/25 14:56 06/25/25 15:06 Lorazepam 2 Mg/1 Ml 2 Mg Vial IV 06/25/25 14:57 1 mg STAT ONE Administration Ondansetron HCl 4 mg 06/25/25 14:01 06/25/25 14:12 Ondansetron Hcl 4 Mg/2 Ml Vial IV 06/25/25 14:02 4 mg STAT ONE Administration Ondansetron HCl Confirm 06/25/25 14:09 Ondansetron Hcl 4 Mg/2 Ml Vial Administered 06/25/25 14:10 Dose 4 mg .ROUTE .STK-MED ONE Lab/Rad Data: Laboratory Result Diagrams 06/25/25 14:15 06/25/25 14:15 Laboratory Results 06/25/25 06/25/25 06/25/25 Range/Units 15:15 14:15 14:15 WBC (4.23-9.07) x10^3/uL RBC (4.63-6.08) x10^6/uL Hgb (13.7-17.5) g/dL Hct (40.1-51.0) % MCV (79.0-92.2) fL MCH (25.7-32.2) pg MCHC (32.3-36.5) g/dL RDW (11.6-14.4) % Plt Count (163-337) x10^3/uL MPV (9.4-12.4) fL Gran % (34.0-67.9) % Immature Gran % (Auto) (0.001-0.429) % Nucleat RBC Rel Count (0.00-0.2) % Eos # (Auto) (0.04-0.54) x10^3/uL Immature Gran # (Auto) (0.001-0.031) x10^3u/L Absolute Lymphs (auto) (1.32-3.57) x10^3/uL Absolute Monos (auto) (0.30-0.82) x10^3/uL Absolute Nucleated RBC (0.00-0.012) x10^3u/L Lymphocytes % (21.8-53.1) % Monocytes % (5.3-12.2) % Eosinophils % (0.8-7.0) % Basophils % (0.2-1.2) % Absolute Granulocytes (1.78-5.38) x10^3/uL Basophils # (0.01-0.08) x10^3/uL PT 10.0 (9.4-12.5) SECONDS INR 0.91 (0.8-3.0) APTT 26.0 (25.1-36.5) SECONDS Sodium (135-145) mmol/L Potassium (3.5-5.1) mmol/L Chloride (98-107) mmol/L Carbon Dioxide (22-30) mmol/L Anion Gap (5-15) MEQ/L BUN (9-20) mg/dL Creatinine (0.66-1.25) mg/dL Estimated GFR ML/MIN Glucose (74-106) mg/dL Calcium (8.4-10.2) mg/dL Total Bilirubin (0.2-1.3) mg/dL AST (17-59) U/L ALT (0-50) U/L Alkaline Phosphatase (38-126) U/L Serum Total Protein (6.3-8.2) g/dL Albumin (3.5-5.0) g/dL Urine Color Yellow (Yellow) Urine Appearance Clear (Clear) Urine pH 7.0 (4.6-8.0) Ur Specific [place] 1.010 (1.005-1.030) Urine Protein Negative (Negative) Urine Glucose (UA) Negative (Negative) mg/dL Urine Ketones 40 A (Negative) Urine Blood Negative (Negative) Urine Nitrite Negative (Negative) Urine Bilirubin Negative (Negative) Urine Urobilinogen >=8.0 A (0.2) mg/dL Ur Leukocyte Esterase Negative (Negative) U Hyaline Cast (Auto) NONE SEEN (0-2) /LPF Urine Microscopic RBC 0-2 (0-5) /HPF Urine Microscopic WBC 0-2 (0-5) /HPF Ur Epithelial Cells None Seen (None Seen) /HPF Urine Bacteria None Seen (None Seen) /HPF Urine Culture Reflexed NO (NO) ABO Group A Rh Factor POSITIVE Antibody Screen NEGATIVE (NEGATIVE) 06/25/25 06/25/25 Range/Units 14:15 14:15 WBC 9.7 H (4.23-9.07) x10^3/uL RBC 4.07 L (4.63-6.08) x10^6/uL Hgb 13.6 L (13.7-17.5) g/dL Hct 38.6 L (40.1-51.0) % MCV 94.8 H (79.0-92.2) fL MCH 33.4 H (25.7-32.2) pg MCHC 35.2 (32.3-36.5) g/dL RDW 12.5 (11.6-14.4) % Plt Count 210 (163-337) x10^3/uL MPV 9.2 L (9.4-12.4) fL Gran % 76.2 H (34.0-67.9) % Immature Gran % (Auto) 1.4 H (0.001-0.429) % Nucleat RBC Rel Count 0.0 (0.00-0.2) % Eos # (Auto) 0.07 (0.04-0.54) x10^3/uL Immature Gran # (Auto) 0.14 H (0.001-0.031) x10^3u/L Absolute Lymphs (auto) 1.07 L (1.32-3.57) x10^3/uL Absolute Monos (auto) 1.00 H (0.30-0.82) x10^3/uL Absolute Nucleated RBC 0.00 (0.00-0.012) x10^3u/L Lymphocytes % 11.0 L (21.8-53.1) % Monocytes % 10.3 (5.3-12.2) % Eosinophils % 0.7 L (0.8-7.0) % Basophils % 0.4 (0.2-1.2) % Absolute Granulocytes 7.39 H (1.78-5.38) x10^3/uL Basophils # 0.04 (0.01-0.08) x10^3/uL PT (9.4-12.5) SECONDS INR (0.8-3.0) APTT (25.1-36.5) SECONDS Sodium 129 L (135-145) mmol/L Potassium 3.9 (3.5-5.1) mmol/L Chloride 91 L (98-107) mmol/L Carbon Dioxide 26 (22-30) mmol/L Anion Gap 15.0 (5-15) MEQ/L BUN 8 L (9-20) mg/dL Creatinine 0.60 L (0.66-1.25) mg/dL Estimated GFR 109.1 ML/MIN Glucose 111 H (74-106) mg/dL Calcium 8.5 (8.4-10.2) mg/dL Total Bilirubin 0.90 (0.2-1.3) mg/dL AST 86 H (17-59) U/L ALT 45 (0-50) U/L Alkaline Phosphatase 70 (38-126) U/L Serum Total Protein 7.4 (6.3-8.2) g/dL Albumin 4.1 (3.5-5.0) g/dL Urine Color (Yellow) Urine Appearance (Clear) Urine pH (4.6-8.0) Ur Specific [place] (1.005-1.030) Urine Protein (Negative) Urine Glucose (UA) (Negative) mg/dL Urine Ketones (Negative) Urine Blood (Negative) Urine Nitrite (Negative) Urine Bilirubin (Negative) Urine Urobilinogen (0.2) mg/dL Ur Leukocyte Esterase (Negative) U Hyaline Cast (Auto) (0-2) /LPF Urine Microscopic RBC (0-5) /HPF Urine Microscopic WBC (0-5) /HPF Ur Epithelial Cells (None Seen) /HPF Urine Bacteria (None Seen) /HPF Urine Culture Reflexed (NO) ABO Group Rh Factor Antibody Screen (NEGATIVE) - Progress Progress Note: 06/25/25 16:54 Right hip x-ray had revealed a subcapital hip fracture, chest x-ray revealed no acute process, laboratory was obtained, patient had a Olsen catheter placed, consultation with orthopedics was obtained with ; Recommends admission to hospitalist with consult to orthopedics; He did receive pain medication - Departure Departure Disposition: In-patient Admission Clinical Impression: Subcapital fracture of right hip Qualifiers: Encounter type: initial encounter Fracture type: closed Qualified Code(s): S 72.011A - Unspecified intracapsular fracture of right femur, initial encounter for closed fracture Condition: Stable Critical Care Time: No
[2025-06-25] MEDS ORDERED: Valium 5 MG PO PRN (17:44)
[2025-06-25] MEDS ORDERED: Narcan 0.4 MG/ML IV PRN (17:47)
--- NOTE | 2025-06-25 17:54 | PCM.HP ---
History of Present Illness - Chief Complaint Chief Complaint: hip fracture Date: 06/25/25 History of Present Illness: is a A 64-year-old male with a past medical history of daily alcohol use (89 beers per day), cataracts, hypertension, GERD, and occasional marijuana use (monthly) presented to the emergency department after a fall on Sunday when he slipped down stairs and landed on concrete. Since the fall, he has been unable to stand or ambulate. He also reports right knee pain with associated edema, which was not imaged in the ER; a right knee X-ray will be ordered for further evaluation. X-ray imaging of the pelvis and right hip demonstrated a slightly impacted right subcapital femur fracture, with additional findings of osteopenia, mild lower lumbar degenerative spondylosis, and several pelvic phleboliths. On arrival, vital signs showed heart rate 108 with sinus tachycardia, and he will be placed on telemetry for monitoring. Blood pressure was elevated at 157/86, likely secondary to pain, and IV Dilaudid was initiated for pain control. The patient is to remain NPO after midnight in preparation for right hip surgery tomorrow with Dr. Powers. He was also started on the CIWA protocol for alcohol withdrawal but currently denies any withdrawal symptoms. Laboratory studies showed WBC 9.7, hemoglobin 13.6, sodium 129, and glucose 111, with hemoglobin A1C pending. IV fluids started in the ER were discontinued due to concern for beer potomania contributing to hyponatremia. The patient reports his last alcohol intake was yesterday evening and none today. On exam, he remains unable to bear weight on the right leg. He had a smtih placed while in the ER. He is currently on bed rest per orthopedic recommendations. He denies chest pain, shortness of breath, abdominal pain, nausea, vomiting, or diarrhea. - Review of Systems Constitutional: Weakness (unable to stand), No Fever, No Chills Eyes: No Symptoms Ears, Nose, & Throat: No Symptoms Respiratory: No Cough, No Short Of Breath Cardiac: No Chest Pain, No Edema, No Syncope Abdominal/Gastrointestinal: No Abdominal Pain, No Nausea, No Vomiting, No Diarrhea Genitourinary Symptoms: No Dysuria Musculoskeletal: Joint Swelling (right knee), No Back Pain, No Neck Pain Skin: No Rash Neurological: No Dizziness, No Focal Weakness, No Sensory Changes Psychological: No Symptoms Endocrine: No Symptoms Hematologic/Lymphatic: No Symptoms Immunological/Allergic: No Symptoms Medications & Allergies Home Medications: Home Medication List Omeprazole 20 MG [Prilosec 20 mg] 20 mg PO DAILY 02/27/12 [History Confirmed 06/25/25] Allergies/Adverse Reactions: Allergies Allergy/AdvReac Type Severity Reaction Status Date / Time No Known Drug Allergies Allergy Unverified 06/25/25 17:32 - Past Medical History Past Medical History: Yes Neurological History: No Pertinent History ENT History: Cataracts Cardiac History: Hypertension Respiratory History: No Pertinent History Endocrine Medical History: No Pertinent History Musculoskelatal History: No Pertinent History GI Medical History: GERD History: No Pertinent History Pyscho-Social History: No Pertinent History Male Reproductive Disorders: No Pertinent History - Past Surgical History Past Surgical History: Yes Neuro Surgical History: No Pertinent History Cardiac History: No Pertinent History Respiratory Surgery: No Pertinent History GI Surgical History: No Pertinent History Genitourinary Surgical Hx: No Pertinent History Musculskeletal Surgical Hx: No Pertinent History Male Surgical History: No Pertinent History Other Surgical History: left cataract removed 01/31/2012, skin cancer Significant Family History: no pertinent family hx - Social History Smoking Status: Never smoker Exposure to second hand smoke: No Alcohol: Daily Drug Use: marijuana - Social Determinants of Health Will the patient participate in the screening: Declined to provide - Physical Exam Vital Signs: Vital Signs - 24 hr Temp Pulse Resp BP BP Pulse Ox 06/25/25 17:00 139 H 23 138/87 94 L 06/25/25 16:59 97 06/25/25 16:30 114 H 17 146/87 97 06/25/25 16:00 108 H 18 136/95 97 06/25/25 15:30 114 H 38 H 149/109 98 06/25/25 15:14 106 H 20 159/88 94 L 06/25/25 15:01 133/75 06/25/25 15:00 95 H 14 06/25/25 14:50 102 H 19 99 06/25/25 14:42 101 H 19 99 06/25/25 14:00 120 H 18 147/97 06/25/25 13:45 122 H 19 155/93 100 06/25/25 13:44 98 F 106 H 17 155/93 98 General Appearance: no apparent distress, alert Neurologic Exam: alert, 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, cooperative, normal mood/affect, nml cerebellar function, nml station & gait, sensation nml, No motor deficits Eye Exam: PERRL/EOMI, eyes nml inspection Ears, Nose, Throat Exam: normal ENT inspection, TMs normal, pharynx normal, moist mucous membranes Neck Exam: normal inspection, non-tender, supple, full range of motion Respiratory Exam: normal breath sounds, lungs clear, No respiratory distress Cardiovascular Exam: regular rate/rhythm, normal heart sounds, normal peripheral pulses Gastrointestinal/Abdomen Exam: soft, normal bowel sounds, No tenderness, No mass Back Exam: normal inspection, normal range of motion, No CVA tenderness, No vertebral tenderness Extremity Exam: limited range of motion (Right hip), swelling (right knee), tenderness Skin Exam: normal color, warm, dry, No rash Lymphatic Exam: No adenopathy Results - Labs Lab/Micro Results: Lab Results-Last 24 Hours 06/25/25 06/25/25 06/25/25 Range/Units 14:15 14:15 14:15 WBC 9.7 H (4.23-9.07) x10^3/uL RBC 4.07 L (4.63-6.08) x10^6/uL Hgb 13.6 L (13.7-17.5) g/dL Hct 38.6 L (40.1-51.0) % MCV 94.8 H (79.0-92.2) fL MCH 33.4 H (25.7-32.2) pg MCHC 35.2 (32.3-36.5) g/dL RDW 12.5 (11.6-14.4) % Plt Count 210 (163-337) x10^3/uL MPV 9.2 L (9.4-12.4) fL Gran % 76.2 H (34.0-67.9) % Immature Gran % (Auto) 1.4 H (0.001-0.429) % Nucleat RBC Rel Count 0.0 (0.00-0.2) % Eos # (Auto) 0.07 (0.04-0.54) x10^3/uL Immature Gran # (Auto) 0.14 H (0.001-0.031) x10^3u/L Absolute Lymphs (auto) 1.07 L (1.32-3.57) x10^3/uL Absolute Monos (auto) 1.00 H (0.30-0.82) x10^3/uL Absolute Nucleated RBC 0.00 (0.00-0.012) x10^3u/L Lymphocytes % 11.0 L (21.8-53.1) % Monocytes % 10.3 (5.3-12.2) % Eosinophils % 0.7 L (0.8-7.0) % Basophils % 0.4 (0.2-1.2) % Absolute Granulocytes 7.39 H (1.78-5.38) x10^3/uL Basophils # 0.04 (0.01-0.08) x10^3/uL PT 10.0 (9.4-12.5) SECONDS INR 0.91 (0.8-3.0) APTT 26.0 (25.1-36.5) SECONDS Sodium 129 L (135-145) mmol/L Potassium 3.9 (3.5-5.1) mmol/L Chloride 91 L (98-107) mmol/L Carbon Dioxide 26 (22-30) mmol/L Anion Gap 15.0 (5-15) MEQ/L BUN 8 L (9-20) mg/dL Creatinine 0.60 L (0.66-1.25) mg/dL Estimated GFR 109.1 ML/MIN Glucose 111 H (74-106) mg/dL Calcium 8.5 (8.4-10.2) mg/dL Total Bilirubin 0.90 (0.2-1.3) mg/dL AST 86 H (17-59) U/L ALT 45 (0-50) U/L Alkaline Phosphatase 70 (38-126) U/L Serum Total Protein 7.4 (6.3-8.2) g/dL Albumin 4.1 (3.5-5.0) g/dL Urine Color (Yellow) Urine Appearance (Clear) Urine pH (4.6-8.0) Ur Specific [place] (1.005-1.030) Urine Protein (Negative) Urine Glucose (UA) (Negative) mg/dL Urine Ketones (Negative) Urine Blood (Negative) Urine Nitrite (Negative) Urine Bilirubin (Negative) Urine Urobilinogen (0.2) mg/dL Ur Leukocyte Esterase (Negative) U Hyaline Cast (Auto) (0-2) /LPF Urine Microscopic RBC (0-5) /HPF Urine Microscopic WBC (0-5) /HPF Ur Epithelial Cells (None Seen) /HPF Urine Bacteria (None Seen) /HPF Urine Culture Reflexed (NO) ABO Group Rh Factor Antibody Screen (NEGATIVE) 06/25/25 06/25/25 Range/Units 14:15 15:15 WBC (4.23-9.07) x10^3/uL RBC (4.63-6.08) x10^6/uL Hgb (13.7-17.5) g/dL Hct (40.1-51.0) % MCV (79.0-92.2) fL MCH (25.7-32.2) pg MCHC (32.3-36.5) g/dL RDW (11.6-14.4) % Plt Count (163-337) x10^3/uL MPV (9.4-12.4) fL Gran % (34.0-67.9) % Immature Gran % (Auto) (0.001-0.429) % Nucleat RBC Rel Count (0.00-0.2) % Eos # (Auto) (0.04-0.54) x10^3/uL Immature Gran # (Auto) (0.001-0.031) x10^3u/L Absolute Lymphs (auto) (1.32-3.57) x10^3/uL Absolute Monos (auto) (0.30-0.82) x10^3/uL Absolute Nucleated RBC (0.00-0.012) x10^3u/L Lymphocytes % (21.8-53.1) % Monocytes % (5.3-12.2) % Eosinophils % (0.8-7.0) % Basophils % (0.2-1.2) % Absolute Granulocytes (1.78-5.38) x10^3/uL Basophils # (0.01-0.08) x10^3/uL PT (9.4-12.5) SECONDS INR (0.8-3.0) APTT (25.1-36.5) SECONDS Sodium (135-145) mmol/L Potassium (3.5-5.1) mmol/L Chloride (98-107) mmol/L Carbon Dioxide (22-30) mmol/L Anion Gap (5-15) MEQ/L BUN (9-20) mg/dL Creatinine (0.66-1.25) mg/dL Estimated GFR ML/MIN Glucose (74-106) mg/dL Calcium (8.4-10.2) mg/dL Total Bilirubin (0.2-1.3) mg/dL AST (17-59) U/L ALT (0-50) U/L Alkaline Phosphatase (38-126) U/L Serum Total Protein (6.3-8.2) g/dL Albumin (3.5-5.0) g/dL Urine Color Yellow (Yellow) Urine Appearance Clear (Clear) Urine pH 7.0 (4.6-8.0) Ur Specific [place] 1.010 (1.005-1.030) Urine Protein Negative (Negative) Urine Glucose (UA) Negative (Negative) mg/dL Urine Ketones 40 A (Negative) Urine Blood Negative (Negative) Urine Nitrite Negative (Negative) Urine Bilirubin Negative (Negative) Urine Urobilinogen >=8.0 A (0.2) mg/dL Ur Leukocyte Esterase Negative (Negative) U Hyaline Cast (Auto) NONE SEEN (0-2) /LPF Urine Microscopic RBC 0-2 (0-5) /HPF Urine Microscopic WBC 0-2 (0-5) /HPF Ur Epithelial Cells None Seen (None Seen) /HPF Urine Bacteria None Seen (None Seen) /HPF Urine Culture Reflexed NO (NO) ABO Group A Rh Factor POSITIVE Antibody Screen NEGATIVE (NEGATIVE) - Radiology Impressions Radiology Exams & Impressions: Radiology Procedures Category Date Time Status CHEST 1 VIEW (PORTABLE) Stat Exams 06/25/25 14:02 Completed HIP UNI (2V) INCL PEL IF DONE Stat Exams 06/25/25 14:02 Completed Assessment/Plan (1) Subcapital fracture of right hip Current Visit: Yes Status: Acute Qualifiers: Encounter type: initial encounter Fracture type: closed Qualified Code(s): S72.011A - Unspecified intracapsular fracture of right femur, initial encounter for closed fracture Assessment & Plan: - 2:2 fall down stairs - Right hip XR: AP pelvis and 2 view right hip demonstrates slightly impacted right subcapital femur fracture. Elsewhere osteopenia, mild lower lumbar degenerative spondylosis, and a few pelvic phleboliths - Ortho consult- surgery in AM - NPO at midnight - SCD's - IV narcotic pain medication Code(s): S72.011A - UNSP INTRACAPSULAR FRACTURE OF RIGHT FEMUR, INIT FOR CLOS FX (2) Right knee pain Current Visit: Yes Status: Acute Assessment & Plan: - XR right knee pending - Pain and edema of right knee Code(s): M25.561 - PAIN IN RIGHT KNEE (3) Fall (on) (from) other stairs and steps, initial encounter Current Visit: Yes Status: Acute Assessment & Plan: - Fall/Slip on steps Sunday and unable to bear weight on right leg since - See plans above Code(s): W10.9XXA - FALL (ON) (FROM) UNSPECIFIED STAIRS AND STEPS, INIT ENCNTR (4) Hyponatremia Current Visit: Yes Status: Acute Assessment & Plan: - Na+ 129- trend - Likely 2:2 beer potomania - IV fluids stopped - Urine Na+ and urine osmo pending. - Consider 1L fluid restriction Code(s): E87.1 - HYPO-OSMOLALITY AND HYPONATREMIA (5) HTN (hypertension) Current Visit: Yes Status: Acute Assessment & Plan: - 2:2 pain? IV pain meds provided - Pt reports a hx of HTN but not currently taking meds for this. Code(s): I10 - ESSENTIAL (PRIMARY) HYPERTENSION (6) Alcohol use Current Visit: No Status: Chronic Assessment & Plan: - Drinks 8-10 beers per day - Alcohol level in AM - CIWA protocol Code(s): Z78.9 - OTHER SPECIFIED HEALTH STATUS (7) Marijuana dependence Current Visit: Yes Status: Chronic Assessment & Plan: - Smokes monthly - Advised cessation VTE: SCD's PPI: Protonix Next of KIN: Child- Ren Navarrete D/C plan: 2-3 days Code status:Full Plan of care time: > 50 minutes D/C plan needs: Pt requesting assistance with obtaining insurance. Code(s): F12.20 - CANNABIS DEPENDENCE, UNCOMPLICATED Telemedicine Encounter - Telemedicine Encounter Telemedicine Encounter: "The entirety of this encounter was performed via Telemedicine" This visit was performed using real-time audio and video connection between my location and thepatients locationwith the assistance of a surrogateat the patients location. Written or verbal consent was obtained from the patient/guardian to perform this visit usingsynchrIllumix Softwaretelemedicine technology. Any patient questions regarding the telemedicine interaction were answered.
[2025-06-25] MEDS: Hydromorphone 1 mg/ml Injection IV PRN (18:26)
[2025-06-25 19:39] LABS: Iron 69 ug/dL (49-181); TIBC 227 ug/dL (261-497)
[2025-06-25] MEDS: TRANEXAMIC 1,000 MG/100ML-NACL 1,000 MG/100 ML PIGGYBACK IV ONE (20:13)
[2025-06-25 20:41] LABS: Ferritin 254.0 ng/mL (17.9-464)
[2025-06-25] MEDS: Protonix 20MG Tablet PO SCH (23:01)
[2025-06-26] MEDS: MELATONIN PO PRN (00:14)
[2025-06-26 05:40] LABS: BASOPHIL % 0.6 % (0.2-1.2); Basophil (Absolute #) 0.06 x10^3/uL (0.01-0.08); Eosinophil (Absolute #) 0.20 x10^3/uL (0.04-0.54); Hematocrit 38.2 % (40.1-51.0); Hemoglobin 13.0 g/dL (13.7-17.5); IMMATURE GRAN # 0.17 x10^3u/L (0.001-0.031); IMMATURE GRAN % 1.7 % (0.001-0.429); Lymphocyte (Absolute #) 1.22 x10^3/uL (1.32-3.57); Mean Corpuscular Hemoglobin 32.9 pg (25.7-32.2); Mean Corpuscular Hgb Concent. 34.0 g/dL (32.3-36.5); Monocyte (Absolute #) 0.93 x10^3/uL (0.30-0.82); NUCLEATED RBC # 0.00 x10^3u/L (0.00-0.012); NUCLEATED RBC % 0.0 % (0.00-0.2); Platelet Count 214 x10^3/uL (163-337); Red Blood Count 3.95 x10^6/uL (4.63-6.08); White Blood Count 10.3 x10^3/uL (4.23-9.07)
[2025-06-26 06:03] LABS: Calcium 8.4 mg/dL (8.4-10.2); Carbon Dioxide 23 mmol/L (22-30); Creatinine 1 0.54 mg/dL (0.66-1.25); EST GLOMERULAR FILTRATION RATE 112.7 ML/MIN; ETHYL ALCOHOL < 10 mg/dL (0-10); Glucose 107 mg/dL (74-106); Potassium 3.6 mmol/L (3.5-5.1)
[2025-06-26] MEDS ORDERED: Dextrose 5%-NS IV Solution 1000 ML 1,000 ML IV SCH (08:00)
[2025-06-26] MEDS ORDERED: TRANEXAMIC 1,000 MG/100ML-NACL 1,000 MG/100 ML PIGGYBACK IV SCH (08:00)
--- NOTE | 2025-06-26 08:38 | XRAY ---
Indication: Pain. Comparison: None AP/cross-table lateral right knee demonstrates minimally displaced vertical fracture patella with small hemarthrosis. Elsewhere osteopenia, faint medial/lateral knee joint degenerative chondrocalcinosis, spurring patella/tibial tuberosity, and mild posterior vascular calcifications.
[2025-06-26] MEDS ORDERED: DEXMEDETOMIDINE 80 MCG/20ML-NS IV ONE (09:22)
[2025-06-26] MEDS ORDERED: SUBLIMAZE 100 MCG/2 ML ONE (09:22)
[2025-06-26] MEDS ORDERED: Versed 2 MG/2 ML Injection ONE ×2 (09:22→13:08)
[2025-06-26] MEDS ORDERED: Astramorph-Pf 5 MG/10 ML ONE (09:26)
[2025-06-26] MEDS: Reglan 10 MG/2 ML IV SCH (09:45)
[2025-06-26] MEDS: Pepcid 20 MG VIAL IV SCH (09:45)
[2025-06-26] MEDS: Ativan 2 MG/1 ML VIAL IV ONE ×2 (09:46→15:21)
[2025-06-26] MEDS ORDERED: NON-FORMULARY ITEM (Omeprazole 20 Mg [Prilosec 20 Mg] 20 MG Capsule.Dr) PO SCH (10:00)
[2025-06-26] MEDS ORDERED: propofoL IV ONE ×2 (10:32→11:57)
[2025-06-26] MEDS ORDERED: PHENYLEPHRINE HCL ONE (11:01)
[2025-06-26] MEDS ORDERED: Ephedrine Sulfate 50 MG/ML ONE (11:31)
[2025-06-26] MEDS ORDERED: PHENYLEPHRINE HCL 10 MG in Dextrose 5%/Water IV Soln. 250 ML 249 ML IV PRN (11:57)
[2025-06-26] MEDS ORDERED: Ativan 20 MG/10 ML FOR DRIPS ONLY ONE (13:36)
--- NOTE | 2025-06-26 13:49 | XRAY ---
Indication: Postop exam. Comparison: 1 day earlier. AP/cross-table lateral right hip demonstrates interval total arthroplasty with intact bipolar prosthesis and postoperative soft tissue swelling/emphysema. Again osteopenia. No other bony, articular, or soft tissue abnormalities.
--- NOTE | 2025-06-26 14:04 | PCM.NOTE ---
Date and Time: 06/26/25 1351 Subjective Assessment: 06/25/25 is a A 64-year-old male with a past medical history of daily alcohol use (89 beers per day), cataracts, hypertension, GERD, and occasional marijuana use (monthly) presented to the emergency department after a fall on Sunday when he slipped down stairs and landed on concrete. Since the fall, he has been unable to stand or ambulate. He also reports right knee pain with associated edema, which was not imaged in the ER; a right knee X-ray will be ordered for further evaluation. X-ray imaging of the pelvis and right hip demonstrated a slightly impacted right subcapital femur fracture, with additional findings of osteopenia, mild lower lumbar degenerative spondylosis, and several pelvic phleboliths. On arrival, vital signs showed heart rate 108 with sinus tachycardia, and he will be placed on telemetry for monitoring. Blood pressure was elevated at 157/86, likely secondary to pain, and IV Dilaudid was initiated for pain control. The patient is to remain NPO after midnight in preparation for right hip surgery tomorrow with Dr. Powers. He was also started on the CIWA protocol for alcohol withdrawal but currently denies any withdrawal symptoms. Laboratory studies showed WBC 9.7, hemoglobin 13.6, sodium 129, and glucose 111, with hemoglobin A1C pending. IV fluids started in the ER were discontinued due to concern for beer potomania contributing to hyponatremia. The patient reports his last alcohol intake was yesterday evening and none today. On exam, he remains unable to bear weight on the right leg. He had a smith placed while in the ER. He is currently on bed rest per orthopedic recommendations. He denies chest pain, shortness of breath, abdominal pain, nausea, vomiting, or diarrhea. 06/26/25 Pt to OR today with ortho for right hip surgery. XR right knee reviewed and discussed with ortho as well. Vitamin B12 low and daily replacement started. Na+ 126 today and D5NS started. Pt continues to be tachycardiac and on CIWA protocol for alcohol withdrawal. He denies any further concerns than right hipi and knee pain. - Review of Systems Constitutional: No Fever, No Chills Eyes: No Symptoms Ears, Nose, & Throat: No Symptoms Respiratory: No Cough, No Short Of Breath Cardiac: No Chest Pain, No Edema, No Syncope Abdominal/Gastrointestinal: No Abdominal Pain, No Nausea, No Vomiting, No Diarrhea Genitourinary Symptoms: No Dysuria Musculoskeletal: Joint Pain (right knee and hip), No Back Pain, No Neck Pain Skin: No Rash Neurological: No Dizziness, No Focal Weakness, No Sensory Changes Psychological: No Symptoms Endocrine: No Symptoms Hematologic/Lymphatic: No Symptoms Immunological/Allergic: No Symptoms Objective Exam General Appearance: no apparent distress, alert Neurologic Exam: alert, 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, cooperative, normal mood/affect, nml cerebellar function, sensation nml, motor weakness, No motor deficits Skin Exam: normal color, warm, dry Eye Exam: PERRL, EOMI, eyes nml inspection Ears, Nose, Throat Exam: normal ENT inspection, pharynx normal, moist mucous membranes Neck Exam: normal inspection, non-tender, supple, full range of motion Respiratory Exam: normal breath sounds, lungs clear, No respiratory distress Cardiovascular Exam: regular rate/rhythm, normal heart sounds Gastrointestinal/Abdomen Exam: soft, No tenderness, No mass Extremity Exam: normal inspection, normal range of motion, joint swelling, limited range of motion (right knee and hip) Back Exam: normal inspection, normal range of motion, No CVA tenderness, No vertebral tenderness Male Genitalia Exam: deferred Rectal Exam: deferred Objective Data Vital Signs: Vital Signs - 24 hr Temp Pulse Resp BP BP Pulse Ox 06/26/25 10:22 98.6 F 110 H 12 134/97 93 L 06/26/25 09:46 110 H 12 06/26/25 07:51 98.6 F 110 H 24 134/97 93 L 06/26/25 04:00 97.1 F 101 H 20 158/98 96 06/25/25 23:36 97.2 F 102 H 20 164/84 95 06/25/25 19:58 97.1 F 115 H 18 144/92 96 06/25/25 18:03 97.8 F 108 H 22 157/87 98 06/25/25 17:00 139 H 23 138/87 94 L 06/25/25 16:59 97 06/25/25 16:30 114 H 17 146/87 97 06/25/25 16:00 108 H 18 136/95 97 06/25/25 15:30 114 H 38 H 149/109 98 06/25/25 15:14 106 H 20 159/88 94 L 06/25/25 15:01 133/75 06/25/25 15:00 95 H 14 06/25/25 14:50 102 H 19 99 06/25/25 14:42 101 H 19 99 06/25/25 14:00 120 H 18 147/97 Pain Assessment - Last Documented Pain Intensity 8 Pain Scale Used 0-10 Pain Scale Intake and Output: Intake & Output 06/24/25 06/25/25 06/26/25 06/27/25 11:59 11:59 11:59 11:59 Intake Total 900 Output Total 1450 Balance -550 Weight 97.2 kg 97.2 kg Lab Results: Lab Results-Last 24 Hours 06/25/25 06/25/25 06/25/25 Range/Units 14:15 14:15 14:15 WBC 9.7 H (4.23-9.07) x10^3/uL RBC 4.07 L (4.63-6.08) x10^6/uL Hgb 13.6 L (13.7-17.5) g/dL Hct 38.6 L (40.1-51.0) % MCV 94.8 H (79.0-92.2) fL MCH 33.4 H (25.7-32.2) pg MCHC 35.2 (32.3-36.5) g/dL RDW 12.5 (11.6-14.4) % Plt Count 210 (163-337) x10^3/uL MPV 9.2 L (9.4-12.4) fL Gran % 76.2 H (34.0-67.9) % Immature Gran % (Auto) 1.4 H (0.001-0.429) % Nucleat RBC Rel Count 0.0 (0.00-0.2) % Eos # (Auto) 0.07 (0.04-0.54) x10^3/uL Immature Gran # (Auto) 0.14 H (0.001-0.031) x10^3u/L Absolute Lymphs (auto) 1.07 L (1.32-3.57) x10^3/uL Absolute Monos (auto) 1.00 H (0.30-0.82) x10^3/uL Absolute Nucleated RBC 0.00 (0.00-0.012) x10^3u/L Lymphocytes % 11.0 L (21.8-53.1) % Monocytes % 10.3 (5.3-12.2) % Eosinophils % 0.7 L (0.8-7.0) % Basophils % 0.4 (0.2-1.2) % Absolute Granulocytes 7.39 H (1.78-5.38) x10^3/uL Basophils # 0.04 (0.01-0.08) x10^3/uL PT 10.0 (9.4-12.5) SECONDS INR 0.91 (0.8-3.0) APTT 26.0 (25.1-36.5) SECONDS Sodium 129 L (135-145) mmol/L Potassium 3.9 (3.5-5.1) mmol/L Chloride 91 L (98-107) mmol/L Carbon Dioxide 26 (22-30) mmol/L Anion Gap 15.0 (5-15) MEQ/L BUN 8 L (9-20) mg/dL Creatinine 0.60 L (0.66-1.25) mg/dL Estimated GFR 109.1 ML/MIN Glucose 111 H (74-106) mg/dL Hemoglobin A1c (4.5-6.0) % Calcium 8.5 (8.4-10.2) mg/dL Iron (49-181) ug/dL TIBC (261-497) ug/dL Iron Saturation (20-39) % Ferritin (17.9-464) ng/mL Total Bilirubin 0.90 (0.2-1.3) mg/dL AST 86 H (17-59) U/L ALT 45 (0-50) U/L Alkaline Phosphatase 70 (38-126) U/L Serum Total Protein 7.4 (6.3-8.2) g/dL Albumin 4.1 (3.5-5.0) g/dL Vitamin B12 (239-931) pg/mL Folic Acid (2.76 - >20) ng/mL Urine Color (Yellow) Urine Appearance (Clear) Urine pH (4.6-8.0) Ur Specific [place] (1.005-1.030) Urine Protein (Negative) Urine Glucose (UA) (Negative) mg/dL Urine Ketones (Negative) Urine Blood (Negative) Urine Nitrite (Negative) Urine Bilirubin (Negative) Urine Urobilinogen (0.2) mg/dL Ur Leukocyte Esterase (Negative) U Hyaline Cast (Auto) (0-2) /LPF Urine Microscopic RBC (0-5) /HPF Urine Microscopic WBC (0-5) /HPF Ur Epithelial Cells (None Seen) /HPF Urine Bacteria (None Seen) /HPF Urine Culture Reflexed (NO) Urine Sodium (30-90) mmol/L Ethyl Alcohol (0-10) mg/dL ABO Group Rh Factor Antibody Screen (NEGATIVE) 06/25/25 06/25/25 06/25/25 Range/Units 14:15 14:15 14:15 WBC (4.23-9.07) x10^3/uL RBC (4.63-6.08) x10^6/uL Hgb (13.7-17.5) g/dL Hct (40.1-51.0) % MCV (79.0-92.2) fL MCH (25.7-32.2) pg MCHC (32.3-36.5) g/dL RDW (11.6-14.4) % Plt Count (163-337) x10^3/uL MPV (9.4-12.4) fL Gran % (34.0-67.9) % Immature Gran % (Auto) (0.001-0.429) % Nucleat RBC Rel Count (0.00-0.2) % Eos # (Auto) (0.04-0.54) x10^3/uL Immature Gran # (Auto) (0.001-0.031) x10^3u/L Absolute Lymphs (auto) (1.32-3.57) x10^3/uL Absolute Monos (auto) (0.30-0.82) x10^3/uL Absolute Nucleated RBC (0.00-0.012) x10^3u/L Lymphocytes % (21.8-53.1) % Monocytes % (5.3-12.2) % Eosinophils % (0.8-7.0) % Basophils % (0.2-1.2) % Absolute Granulocytes (1.78-5.38) x10^3/uL Basophils # (0.01-0.08) x10^3/uL PT (9.4-12.5) SECONDS INR (0.8-3.0) APTT (25.1-36.5) SECONDS Sodium (135-145) mmol/L Potassium (3.5-5.1) mmol/L Chloride (98-107) mmol/L Carbon Dioxide (22-30) mmol/L Anion Gap (5-15) MEQ/L BUN (9-20) mg/dL Creatinine (0.66-1.25) mg/dL Estimated GFR ML/MIN Glucose (74-106) mg/dL Hemoglobin A1c 4.87 (4.5-6.0) % Calcium (8.4-10.2) mg/dL Iron (49-181) ug/dL TIBC (261-497) ug/dL Iron Saturation (20-39) % Ferritin 254 (17.9-464) ng/mL Total Bilirubin (0.2-1.3) mg/dL AST (17-59) U/L ALT (0-50) U/L Alkaline Phosphatase (38-126) U/L Serum Total Protein (6.3-8.2) g/dL Albumin (3.5-5.0) g/dL Vitamin B12 202 L (239-931) pg/mL Folic Acid 12.6 (2.76 - >20) ng/mL Urine Color (Yellow) Urine Appearance (Clear) Urine pH (4.6-8.0) Ur Specific [place] (1.005-1.030) Urine Protein (Negative) Urine Glucose (UA) (Negative) mg/dL Urine Ketones (Negative) Urine Blood (Negative) Urine Nitrite (Negative) Urine Bilirubin (Negative) Urine Urobilinogen (0.2) mg/dL Ur Leukocyte Esterase (Negative) U Hyaline Cast (Auto) (0-2) /LPF Urine Microscopic RBC (0-5) /HPF Urine Microscopic WBC (0-5) /HPF Ur Epithelial Cells (None Seen) /HPF Urine Bacteria (None Seen) /HPF Urine Culture Reflexed (NO) Urine Sodium (30-90) mmol/L Ethyl Alcohol (0-10) mg/dL ABO Group A Rh Factor POSITIVE Antibody Screen NEGATIVE (NEGATIVE) 06/25/25 06/25/25 06/25/25 Range/Units 14:15 15:15 15:15 WBC (4.23-9.07) x10^3/uL RBC (4.63-6.08) x10^6/uL Hgb (13.7-17.5) g/dL Hct (40.1-51.0) % MCV (79.0-92.2) fL MCH (25.7-32.2) pg MCHC (32.3-36.5) g/dL RDW (11.6-14.4) % Plt Count (163-337) x10^3/uL MPV (9.4-12.4) fL Gran % (34.0-67.9) % Immature Gran % (Auto) (0.001-0.429) % Nucleat RBC Rel Count (0.00-0.2) % Eos # (Auto) (0.04-0.54) x10^3/uL Immature Gran # (Auto) (0.001-0.031) x10^3u/L Absolute Lymphs (auto) (1.32-3.57) x10^3/uL Absolute Monos (auto) (0.30-0.82) x10^3/uL Absolute Nucleated RBC (0.00-0.012) x10^3u/L Lymphocytes % (21.8-53.1) % Monocytes % (5.3-12.2) % Eosinophils % (0.8-7.0) % Basophils % (0.2-1.2) % Absolute Granulocytes (1.78-5.38) x10^3/uL Basophils # (0.01-0.08) x10^3/uL PT (9.4-12.5) SECONDS INR (0.8-3.0) APTT (25.1-36.5) SECONDS Sodium (135-145) mmol/L Potassium (3.5-5.1) mmol/L Chloride (98-107) mmol/L Carbon Dioxide (22-30) mmol/L Anion Gap (5-15) MEQ/L BUN (9-20) mg/dL Creatinine (0.66-1.25) mg/dL Estimated GFR ML/MIN Glucose (74-106) mg/dL Hemoglobin A1c (4.5-6.0) % Calcium (8.4-10.2) mg/dL Iron 69 (49-181) ug/dL TIBC 227 L (261-497) ug/dL Iron Saturation 31 (20-39) % Ferritin (17.9-464) ng/mL Total Bilirubin (0.2-1.3) mg/dL AST (17-59) U/L ALT (0-50) U/L Alkaline Phosphatase (38-126) U/L Serum Total Protein (6.3-8.2) g/dL Albumin (3.5-5.0) g/dL Vitamin B12 (239-931) pg/mL Folic Acid (2.76 - >20) ng/mL Urine Color Yellow (Yellow) Urine Appearance Clear (Clear) Urine pH 7.0 (4.6-8.0) Ur Specific [place] 1.010 (1.005-1.030) Urine Protein Negative (Negative) Urine Glucose (UA) Negative (Negative) mg/dL Urine Ketones 40 A (Negative) Urine Blood Negative (Negative) Urine Nitrite Negative (Negative) Urine Bilirubin Negative (Negative) Urine Urobilinogen >=8.0 A (0.2) mg/dL Ur Leukocyte Esterase Negative (Negative) U Hyaline Cast (Auto) NONE SEEN (0-2) /LPF Urine Microscopic RBC 0-2 (0-5) /HPF Urine Microscopic WBC 0-2 (0-5) /HPF Ur Epithelial Cells None Seen (None Seen) /HPF Urine Bacteria None Seen (None Seen) /HPF Urine Culture Reflexed NO (NO) Urine Sodium 44 (30-90) mmol/L Ethyl Alcohol (0-10) mg/dL ABO Group Rh Factor Antibody Screen (NEGATIVE) 06/26/25 06/26/25 Range/Units 05:30 05:30 WBC 10.3 H (4.23-9.07) x10^3/uL RBC 3.95 L (4.63-6.08) x10^6/uL Hgb 13.0 L (13.7-17.5) g/dL Hct 38.2 L (40.1-51.0) % MCV 96.7 H (79.0-92.2) fL MCH 32.9 H (25.7-32.2) pg MCHC 34.0 (32.3-36.5) g/dL RDW 12.6 (11.6-14.4) % Plt Count 214 (163-337) x10^3/uL MPV 9.4 (9.4-12.4) fL Gran % 74.8 H (34.0-67.9) % Immature Gran % (Auto) 1.7 H (0.001-0.429) % Nucleat RBC Rel Count 0.0 (0.00-0.2) % Eos # (Auto) 0.20 (0.04-0.54) x10^3/uL Immature Gran # (Auto) 0.17 H (0.001-0.031) x10^3u/L Absolute Lymphs (auto) 1.22 L (1.32-3.57) x10^3/uL Absolute Monos (auto) 0.93 H (0.30-0.82) x10^3/uL Absolute Nucleated RBC 0.00 (0.00-0.012) x10^3u/L Lymphocytes % 11.9 L (21.8-53.1) % Monocytes % 9.1 (5.3-12.2) % Eosinophils % 1.9 (0.8-7.0) % Basophils % 0.6 (0.2-1.2) % Absolute Granulocytes 7.69 H (1.78-5.38) x10^3/uL Basophils # 0.06 (0.01-0.08) x10^3/uL PT (9.4-12.5) SECONDS INR (0.8-3.0) APTT (25.1-36.5) SECONDS Sodium 126 L (135-145) mmol/L Potassium 3.6 (3.5-5.1) mmol/L Chloride 93 L (98-107) mmol/L Carbon Dioxide 23 (22-30) mmol/L Anion Gap 14.3 (5-15) MEQ/L BUN 9 (9-20) mg/dL Creatinine 0.54 L (0.66-1.25) mg/dL Estimated GFR 112.7 ML/MIN Glucose 107 H (74-106) mg/dL Hemoglobin A1c (4.5-6.0) % Calcium 8.4 (8.4-10.2) mg/dL Iron (49-181) ug/dL TIBC (261-497) ug/dL Iron Saturation (20-39) % Ferritin (17.9-464) ng/mL Total Bilirubin (0.2-1.3) mg/dL AST (17-59) U/L ALT (0-50) U/L Alkaline Phosphatase (38-126) U/L Serum Total Protein (6.3-8.2) g/dL Albumin (3.5-5.0) g/dL Vitamin B12 (239-931) pg/mL Folic Acid (2.76 - >20) ng/mL Urine Color (Yellow) Urine Appearance (Clear) Urine pH (4.6-8.0) Ur Specific [place] (1.005-1.030) Urine Protein (Negative) Urine Glucose (UA) (Negative) mg/dL Urine Ketones (Negative) Urine Blood (Negative) Urine Nitrite (Negative) Urine Bilirubin (Negative) Urine Urobilinogen (0.2) mg/dL Ur Leukocyte Esterase (Negative) U Hyaline Cast (Auto) (0-2) /LPF Urine Microscopic RBC (0-5) /HPF Urine Microscopic WBC (0-5) /HPF Ur Epithelial Cells (None Seen) /HPF Urine Bacteria (None Seen) /HPF Urine Culture Reflexed (NO) Urine Sodium (30-90) mmol/L Ethyl Alcohol < 10 (0-10) mg/dL ABO Group Rh Factor Antibody Screen (NEGATIVE) Radiology Exams: Radiology Procedures Category Date Time Status CHEST 1 VIEW (PORTABLE) Stat Exams 06/25/25 14:02 Completed HIP UNI (2V) INCL PEL IF DONE Routine Exams 06/26/25 13:08 Completed HIP UNI (2V) INCL PEL IF DONE Stat Exams 06/25/25 14:02 Completed KNEE (1 OR 2 VIEW) Routine Exams 06/25/25 18:05 Completed Medications: Medications Generic Name Dose Route Start Last Admin Trade Name Freq PRN Reason Stop Dose Admin Cyanocobalamin 1,000 mcg 06/26/25 10:00 Cyanocobalamin 500 Mcg Tablet PO 07/26/25 09:59 DAILY DOYLE Diazepam 0 mg 06/25/25 17:44 Diazepam 5 Mg Tablet PO 07/25/25 17:43 Q2H PRN PRN CIWA SCORE Protocol Famotidine 20 mg 06/26/25 09:30 06/26/25 09:45 Famotidine 20 Mg/1 Vial IV 06/26/25 20:00 20 mg 1HRPRIOR DOYLE Administration Folic Acid 1 mg 06/26/25 10:00 Folic Acid 1 Mg Tablet PO 07/26/25 09:59 DAILY DOYLE Hydromorphone HCl 1 mg 06/25/25 17:46 06/26/25 03:35 Hydromorphone 1 Mg/1ml Inj IV 06/30/25 17:45 1 mg Q4H PRN PRN Administration PAIN TRANEXAMIC ACID IN NACL,ISO-OS 1,000 mg in 100 mls @ 600 mls/hr 06/26/25 08:00 Tranexamic 1,000 Mg/100ml-Nacl IV 06/26/25 23:00 ONCALLTOOR DOYLE Dextrose/Sodium Chloride 1,000 mls @ 100 mls/hr 06/26/25 08:00 Dextrose 5%-Ns Iv Solution 1000 Ml IV 07/26/25 07:59 .Q10H DOYLE Sodium Chloride 1,000 mls @ 30 mls/hr 06/26/25 09:30 06/26/25 09:47 Sodium Chloride 0.9% 1000 Ml IV 06/27/25 18:49 30 mls/hr .Q24H DOYLE Administration Phenylephrine HCl 10 mg/ 250 mls @ 90 mls/hr 06/26/25 11:57 Dextrose IV 07/26/25 11:56 .Q2H47M PRN HYPOTENSION Protocol 60 MCG/MIN Melatonin 3 mg 06/25/25 23:07 06/26/25 00:14 Melatonin 3 Mg Tablet PO 07/25/25 23:06 3 mg HS PRN PRN Administration INSOMNIA Metoclopramide HCl 10 mg 06/26/25 09:30 06/26/25 09:45 Metoclopramide Hcl 10 Mg/2 Ml Vial IV 06/26/25 20:00 10 mg 1HRPRIOR DOYLE Administration Multivitamins Therapeutic 1 tab 06/26/25 10:00 Multivitamins,Therapeutic 1 Tab Tab PO 07/26/25 09:59 QAM DOYLE Naloxone HCl 0.4 mg 06/25/25 17:47 Naloxone Hcl 0.4 Mg/Ml Ml IV 07/25/25 17:46 PRN PRN RESPIRATORY DEPRESSION Nystatin 0 gm 06/26/25 11:00 Nystatin 15 Gm Powder TP 07/26/25 10:59 BID DOYLE Pantoprazole Sodium 20 mg 06/26/25 10:00 06/25/25 23:01 Pantoprazole 20 Mg Tab PO 07/26/25 09:59 20 mg DAILY DOYLE Administration Thiamine HCl 100 mg 06/26/25 10:00 Thiamine Hcl 100 Mg Tablet PO 07/26/25 09:59 DAILY DOYLE Discontinued Medications Generic Name Dose Route Start Last Admin Trade Name Abimael PRN Reason Stop Dose Admin Dexmedetomidine/Sodium Chloride Confirm 06/26/25 09:22 Dexmedetomidine In 0.9 % Nacl 80 Mcg/20 Ml Vial Administered 06/26/25 09:23 Dose 80 mcg IV .STK-MED ONE Ephedrine Sulfate Confirm 06/26/25 11:31 Ephedrine Sulfate 50 Mg/Ml Administered 06/26/25 11:32 Dose 50 mg .ROUTE .STK-MED ONE Fentanyl Citrate Confirm 06/26/25 09:22 Fentanyl Citrate 100 Mcg/2 Ml* Vial Administered 06/26/25 09:23 Dose 100 mcg .ROUTE .STK-MED ONE Hydromorphone HCl 0.5 mg 06/25/25 14:01 06/25/25 14:15 Hydromorphone 1 Mg/1ml Inj IV 06/25/25 14:02 0.5 mg STAT ONE Administration Hydromorphone HCl Confirm 06/25/25 14:09 Hydromorphone 1 Mg/1ml Inj Administered 06/25/25 14:10 Dose 1 mg .ROUTE .STK-MED ONE Hydromorphone HCl 0.5 mg 06/25/25 14:55 06/25/25 15:07 Hydromorphone 1 Mg/1ml Inj IV 06/25/25 14:56 0.5 mg STAT ONE Administration Hydromorphone HCl Confirm 06/25/25 15:03 Hydromorphone 1 Mg/1ml Inj Administered 06/25/25 15:04 Dose 1 mg .ROUTE .STK-MED ONE Sodium Chloride 1,000 mls @ 999 mls/hr 06/25/25 14:01 06/25/25 15:20 Sodium Chloride 0.9% 1000 Ml IV 06/25/25 15:01 Infused .Q1H1M STA Infusion Sodium Chloride Confirm 06/25/25 14:10 Sodium Chloride 0.9% 1000 Ml Administered 06/25/25 14:11 Dose 1,000 mls @ ud .ROUTE .STK-MED ONE Sodium Chloride 1,000 mls @ 100 mls/hr 06/25/25 17:23 06/25/25 20:13 Sodium Chloride 0.9% 1000 Ml IV 07/25/25 17:22 Not Given .Q10H DOYLE Cefazolin Sodium 2 gm/ Sodium 100 mls @ 200 mls/hr 06/26/25 10:00 Chloride IV 06/26/25 10:29 ONCALLTOOR ONE TRANEXAMIC ACID IN NACL,ISO-OS 1,000 mg in 100 mls @ 600 mls/hr 06/25/25 17:47 06/25/25 20:13 Tranexamic 1,000 Mg/100ml-Nacl IV 06/25/25 17:56 Not Given ONCE ONE Sodium Chloride Confirm 06/26/25 11:53 Sodium Chloride 0.9% 1000 Ml Administered 06/26/25 11:54 Dose 1,000 mls @ ud .ROUTE .STK-MED ONE Lorazepam 1 mg 06/25/25 14:56 06/25/25 15:06 Lorazepam 2 Mg/1 Ml 2 Mg Vial IV 06/25/25 14:57 1 mg STAT ONE Administration Lorazepam 1 mg 06/26/25 09:20 06/26/25 09:46 Lorazepam 2 Mg/1 Ml 2 Mg Vial IV 06/26/25 09:21 1 mg STAT ONE Administration Lorazepam 1 mg 06/26/25 13:26 Lorazepam 2 Mg/1 Ml 2 Mg Vial IV 06/26/25 13:27 STAT ONE Lorazepam 20 mg 06/26/25 13:36 Lorazepam 20 Mg/10 Ml Mdv .ROUTE 06/26/25 13:37 .STK-MED ONE Midazolam HCl Confirm 06/26/25 09:22 Midazolam Hcl 2 Mg/2 Ml Vial Administered 06/26/25 09:23 Dose 2 mg .ROUTE .STK-MED ONE Midazolam HCl Confirm 06/26/25 13:08 Midazolam Hcl 2 Mg/2 Ml Vial Administered 06/26/25 13:09 Dose 2 mg .ROUTE .STK-MED ONE Morphine Sulfate Confirm 06/26/25 09:26 Morphine Sulfate 5 Mg/10 Ml Pf Ampul Administered 06/26/25 09:27 Dose 5 mg .ROUTE .STK-MED ONE Non-Formulary Medication 20 mg 06/26/25 10:00 Omeprazole 20 Mg [Prilosec 20 Mg] PO 07/26/25 09:59 DAILY DOYLE Ondansetron HCl 4 mg 06/25/25 14:01 06/25/25 14:12 Ondansetron Hcl 4 Mg/2 Ml Vial IV 06/25/25 14:02 4 mg STAT ONE Administration Ondansetron HCl Confirm 06/25/25 14:09 Ondansetron Hcl 4 Mg/2 Ml Vial Administered 06/25/25 14:10 Dose 4 mg .ROUTE .STK-MED ONE Phenylephrine HCl Confirm 06/26/25 11:01 Phenylephrine 10 Mg/Ml Vial Administered 06/26/25 11:02 Dose 10 mg .ROUTE .STK-MED ONE Propofol Confirm 06/26/25 10:32 Propofol 200 Mg/20 Ml Vial Administered 06/26/25 10:33 Dose 200 mg IV .STK-MED ONE Propofol Confirm 06/26/25 11:57 Propofol 200 Mg/20 Ml Vial Administered 06/26/25 11:58 Dose 200 mg IV .STK-MED ONE Multi-Disciplinary Progress Notes: Multi-Disciplinary Progress Notes 06/26/25 12:02 Case Management Note by Shalini Peoples Addendum entered by Shalini Peoples RN 06/26/25 12:05: PATIENT STATES HE HAS NO BILL EXCEPT FOR UTILITIES. HE OWNS HIS HOME AND TRUCK, BUT BASEMENT IS FLOODED RIGHT NOW AND HAS NO INSURANCE. APPARENTLY HOUSE IS GOING UP IN [place] D/T NON-PAYMENT OF TAXES. HE HAS NO EQUIPMENT AND WHILE HIS SON DOESN'T WORK, HE DOESN'T HELP HIM. HIS "DIONI" IS HIS ONLY HELP. Original Note: REFERRAL TO [facility] TO SEE ABOUT ANY ADDITIONAL RESOURCES AVAILABLE FOR PATIENT. Initialized on 06/26/25 12:02 - END OF NOTE Assessment/Plan (1) Subcapital fracture of right hip Current Visit: Yes Status: Acute Qualifiers: Encounter type: initial encounter Fracture type: closed Qualified Code(s): S72.011A - Unspecified intracapsular fracture of right femur, initial encounter for closed fracture Code(s): S72.011A - UNSP INTRACAPSULAR FRACTURE OF RIGHT FEMUR, INIT FOR CLOS FX (2) Right knee pain Current Visit: Yes Status: Acute Code(s): M25.561 - PAIN IN RIGHT KNEE (3) Fall (on) (from) other stairs and steps, initial encounter Current Visit: Yes Status: Acute Code(s): W10.9XXA - FALL (ON) (FROM) UNSPECIFIED STAIRS AND STEPS, INIT ENCNTR (4) Hyponatremia Current Visit: Yes Status: Acute Code(s): E87.1 - HYPO-OSMOLALITY AND HYPONATREMIA (5) HTN (hypertension) Current Visit: Yes Status: Acute Code(s): I10 - ESSENTIAL (PRIMARY) HYPERTENSION (6) Alcohol use Current Visit: No Status: Chronic Code(s): Z78.9 - OTHER SPECIFIED HEALTH STATUS (7) Marijuana dependence Current Visit: Yes Status: Chronic Assessment & Plan: (1) Subcapital fracture of right hip Current Visit: Yes Status: Acute Qualifiers: Encounter type: initial encounter Fracture type: closed Qualified Code(s): S72.011A - Unspecified intracapsular fracture of right femur, initial encounter for closed fracture Assessment & Plan: - 2:2 fall down stairs - Right hip XR: AP pelvis and 2 view right hip demonstrates slightly impacted right subcapital femur fracture. Elsewhere osteopenia, mild lower lumbar degenerative spondylosis, and a few pelvic phleboliths - Ortho consult- surgery in AM - NPO at midnight - SCD's - IV narcotic pain medication 06/26 - To OR with ortho today - WBC 10.3 - CBC, CMP reviewed Code(s): S72.011A - UNSP INTRACAPSULAR FRACTURE OF RIGHT FEMUR, INIT FOR CLOS FX (2) Right knee pain Current Visit: Yes Status: Acute Assessment & Plan: - XR right knee pending - Pain and edema of right knee 06/26 - Reviewed Knee XR with ortho and per ortho non- concerning and likely congenital Code(s): M25.561 - PAIN IN RIGHT KNEE (3) Fall (on) (from) other stairs and steps, initial encounter Current Visit: Yes Status: Acute Assessment & Plan: - Fall/Slip on steps Sunday and unable to bear weight on right leg since - See plans above Code(s): W10.9XXA - FALL (ON) (FROM) UNSPECIFIED STAIRS AND STEPS, INIT ENCNTR (4) Hyponatremia Current Visit: Yes Status: Acute Assessment & Plan: - Na+ 129- trend - Likely 2:2 beer potomania - IV fluids stopped - Urine Na+ and urine osmo pending. - Consider 1L fluid restriction 06/26 - Na+ 126 - D5 NS at 100 ml /hr started - Urine Na+ 44 - Urine osmo pending Code(s): E87.1 - HYPO-OSMOLALITY AND HYPONATREMIA (5) HTN (hypertension) Current Visit: Yes Status: Acute Assessment & Plan: - 2:2 pain? IV pain meds provided - Pt reports a hx of HTN but not currently taking meds for this. 06/26 - Bp stable Code(s): I10 - ESSENTIAL (PRIMARY) HYPERTENSION (6) Alcohol use Current Visit: No Status: Chronic Assessment & Plan: - Drinks 8-10 beers per day - Alcohol level in AM - CIWA protocol Code(s): Z78.9 - OTHER SPECIFIED HEALTH STATUS (7) Marijuana dependence Current Visit: Yes Status: Chronic Assessment & Plan: - Smokes monthly - Advised cessation Code(s): F12.20 - CANNABIS DEPENDENCE, UNCOMPLICATED Code(s): F12.20 - CANNABIS DEPENDENCE, UNCOMPLICATED (8) Vitamin B12 deficiency Current Visit: Yes Status: Acute Assessment & Plan: - Iron panel - B12 202- daily PO replacement started VTE: SCD's PPI: Protonix Next of KIN: Child- Ren Navarrete D/C plan: 2-3 days Code status:Full Plan of care time: > 45 minutes Code(s): E53.8 - DEFICIENCY OF OTHER SPECIFIED B GROUP VITAMINS
[2025-06-26] MEDS ORDERED: MORPHINE SULFATE 2 MG INJ IV PRN (14:30)
[2025-06-26] MEDS ORDERED: CLARITIN 10 MG PO PRN (14:30)
[2025-06-26] MEDS ORDERED: Sodium Chloride 0.9% 10 ML FLUSH Syringe IJ PRN (14:30)
[2025-06-26] MEDS ORDERED: Nubain 10 MG/ML IV PRN (14:30)
[2025-06-26] MEDS ORDERED: Zofran 4 MG/2 ML VIAL IV PRN (14:30)
[2025-06-26] MEDS ORDERED: PERCOCET TABLET 5/325MG PO PRN (14:30)
[2025-06-26] MEDS ORDERED: Narcan 0.4 MG/ML IV PRN (14:30)
[2025-06-26] MEDS: NYSTOP POWDER 15 GM TP SCH (15:06)
[2025-06-26] MEDS: Valium 5 MG PO PRN (15:07)
[2025-06-26] MEDS: Ecotrin 325 MG PO SCH (15:09)
[2025-06-26] MEDS: Vitamin B-12 500 MCG PO SCH (15:10)
[2025-06-26] MEDS: VITAMIN B-1 100 MG PO SCH (15:11)
[2025-06-26] MEDS: FOLATE 1 MG PO SCH (15:11)
[2025-06-26] MEDS: THERAGRAN MULTIVITAMIN PO SCH (16:31)
[2025-06-26] MEDS: VALIUM 10 MG/2 ML SYRINGE IV PRN (16:31)
[2025-06-26] MEDS: BENADRYL 50 MG/ML IV PRN (20:39)
[2025-06-27 05:58] LABS: Hematocrit 31.9 % (40.1-51.0); Hemoglobin 11.2 g/dL (13.7-17.5); Mean Corpuscular Hemoglobin 32.7 pg (25.7-32.2); Mean Corpuscular Hgb Concent. 35.1 g/dL (32.3-36.5); Platelet Count 184 x10^3/uL (163-337); Red Blood Count 3.42 x10^6/uL (4.63-6.08); White Blood Count 9.1 x10^3/uL (4.23-9.07)
[2025-06-27 06:21] LABS: Calcium 8.1 mg/dL (8.4-10.2); Carbon Dioxide 25.0 mmol/L (22-30); Creatinine 1 0.56 mg/dL (0.66-1.25); EST GLOMERULAR FILTRATION RATE 111.4 ML/MIN; Glucose 117.0 mg/dL (74-106); Potassium 3.4 mmol/L (3.5-5.1); SGOT/AST 90.0 U/L (17-59); SGPT/ALT 41.0 U/L (0-50); Total Protein 6.2 g/dL (6.3-8.2)
[2025-06-27] MEDS: DEXTROSE 5% -NACL 0.9% 1000 ML + KCl 20 MEQ 1,000 ML IV SCH (08:37)
[2025-06-27] MEDS: Klor Con PO SCH (09:42)
[2025-06-27] MEDS: HOLD NARCOTIC ANALGESICS AND SEDATIVES X24 HR MC SCH (10:17)
--- NOTE | 2025-06-27 10:32 | PCM.NOTE ---
Date and Time: 06/27/25 1023 Subjective Assessment: 06/25/25 is a A 64-year-old male with a past medical history of daily alcohol use (89 beers per day), cataracts, hypertension, GERD, and occasional marijuana use (monthly) presented to the emergency department after a fall on Sunday when he slipped down stairs and landed on concrete. Since the fall, he has been unable to stand or ambulate. He also reports right knee pain with associated edema, which was not imaged in the ER; a right knee X-ray will be ordered for further evaluation. X-ray imaging of the pelvis and right hip demonstrated a slightly impacted right subcapital femur fracture, with additional findings of osteopenia, mild lower lumbar degenerative spondylosis, and several pelvic phleboliths. On arrival, vital signs showed heart rate 108 with sinus tachycardia, and he will be placed on telemetry for monitoring. Blood pressure was elevated at 157/86, likely secondary to pain, and IV Dilaudid was initiated for pain control. The patient is to remain NPO after midnight in preparation for right hip surgery tomorrow with Dr. Powers. He was also started on the CIWA protocol for alcohol withdrawal but currently denies any withdrawal symptoms. Laboratory studies showed WBC 9.7, hemoglobin 13.6, sodium 129, and glucose 111, with hemoglobin A1C pending. IV fluids started in the ER were discontinued due to concern for beer potomania contributing to hyponatremia. The patient reports his last alcohol intake was yesterday evening and none today. On exam, he remains unable to bear weight on the right leg. He had a smith placed while in the ER. He is currently on bed rest per orthopedic recommendations. He denies chest pain, shortness of breath, abdominal pain, nausea, vomiting, or diarrhea. 06/26/25 Pt to OR today with ortho for right hip surgery. XR right knee reviewed and discussed with ortho as well. Vitamin B12 low and daily replacement started. Na+ 126 today and D5NS started. Pt continues to be tachycardiac and on CIWA protocol for alcohol withdrawal. He denies any further concerns than right hip and knee pain. 06/27/25 The patient is postoperative day two following right hip surgery. Overnight, he became confused and attempted to remove his postoperative dressing, requiring restraints, which were discontinued by 7 a.m. Today, he is alert and oriented. His heart rate was noted at 120, and Valium was administered per alcohol withdrawal protocol without effect on heart rate, so metoprolol was initiated. The patient denies hip pain and is refusing narcotic pain medications but requested acetaminophen for headache. He participated with occupational therapy this morning and performed well. Laboratory results revealed potassium of 3.4, which was replaced, and sodium of 126; he was started on D5NS with 20 mEq KCl at 200 mL/hr, with plans to trend sodium every six hours. He refused nystatin treatment for a groin yeast infection. Orthopedic evaluation is pending. The patient denies any additional concerns at this time. - Review of Systems Constitutional: Weakness (right leg), No Fever, No Chills Eyes: No Symptoms Ears, Nose, & Throat: No Symptoms Respiratory: No Cough, No Short Of Breath Cardiac: Palpitations, No Chest Pain, No Edema, No Syncope Abdominal/Gastrointestinal: No Abdominal Pain, No Nausea, No Vomiting, No Diarrhea Genitourinary Symptoms: No Dysuria Musculoskeletal: Joint Pain (right hip with dressing in place), No Back Pain, No Neck Pain Skin: Other (groin yeast infection), No Rash Neurological: No Dizziness, No Focal Weakness, No Sensory Changes Psychological: No Symptoms Endocrine: No Symptoms Hematologic/Lymphatic: No Symptoms Immunological/Allergic: No Symptoms Objective Exam General Appearance: no apparent distress, alert Neurologic Exam: alert, 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, cooperative, sport internship II-XII nml as tested, normal mood/affect, nml cerebellar function, sensation nml, No motor deficits Skin Exam: normal color, warm, dry, other (groin yeast infection) Wound Assessment: Skin/Wound Assessment Wound/Incision Assessment Start: 06/26/25 10:36 Text: Status: Active Freq: Q6H Protocol: Document 06/27/25 04:00 KW (Rec: 06/27/25 04:20 KW [id number]) Wound/Incision Assessment LAT RT HIP Wound Assessment Shift Assessment Wound Type Incision Dressing Status Changed Drainage Amount Moderate Drainage Description Sanguineous General Appearance Bleeding Surrounding Tissue Edematous Primary Dressing Hydrocolloid Secondary Dressing Gauze Pads Comment shadow drainage and edema unchanged from previous assessment Eye Exam: PERRL, EOMI, eyes nml inspection Ears, Nose, Throat Exam: normal ENT inspection, pharynx normal, moist mucous membranes Neck Exam: normal inspection, non-tender, supple, full range of motion Respiratory Exam: normal breath sounds, lungs clear, No respiratory distress Cardiovascular Exam: regular rate/rhythm, normal heart sounds, tachycardia Gastrointestinal/Abdomen Exam: soft, No tenderness, No mass Extremity Exam: normal inspection, normal range of motion, tenderness (right hip with dressing in place, right knee pain) Back Exam: normal inspection, normal range of motion, No CVA tenderness, No vertebral tenderness Male Genitalia Exam: deferred Rectal Exam: deferred Objective Data Vital Signs: Vital Signs - 24 hr Temp Pulse Resp BP Pulse Ox 06/27/25 07:07 98.6 F 120 H 16 140/90 94 L 06/27/25 02:00 98.1 F 108 H 18 148/85 96 06/26/25 22:00 98.9 F 122 H 24 139/85 98 06/26/25 18:33 141 H 22 06/26/25 18:00 133 H 172/92 06/26/25 17:00 123 H 146/87 06/26/25 16:31 140 H 06/26/25 16:00 136 H 161/79 06/26/25 15:30 138 H 171/97 06/26/25 15:18 96 06/26/25 15:00 136 H 153/89 06/26/25 14:45 144 H 145/82 06/26/25 14:30 134 H 138/83 93 L 06/26/25 14:29 133 H Pain Assessment - Last Documented Pain Intensity 0 Pain Scale Used 0-10 Pain Scale Intake and Output: Intake & Output 06/24/25 06/25/25 06/26/25 06/27/25 11:59 11:59 11:59 11:59 Intake Total 900 1200 Output Total 1450 2250 Balance -550 -1050 Weight 97.2 kg 97.2 kg Lab Results: Lab Results-Last 24 Hours 06/27/25 06/27/25 Range/Units 05:50 05:50 WBC 9.1 H (4.23-9.07) x10^3/uL RBC 3.42 L (4.63-6.08) x10^6/uL Hgb 11.2 L (13.7-17.5) g/dL Hct 31.9 L (40.1-51.0) % MCV 93.3 H (79.0-92.2) fL MCH 32.7 H (25.7-32.2) pg MCHC 35.1 (32.3-36.5) g/dL RDW 12.6 (11.6-14.4) % Plt Count 184 (163-337) x10^3/uL MPV 8.9 L (9.4-12.4) fL Sodium 126 L (135-145) mmol/L Potassium 3.4 L (3.5-5.1) mmol/L Chloride 94 L (98-107) mmol/L Carbon Dioxide 25 (22-30) mmol/L Anion Gap 9.5 (5-15) MEQ/L BUN 7 L (9-20) mg/dL Creatinine 0.56 L (0.66-1.25) mg/dL Estimated GFR 111.4 ML/MIN Glucose 117 H (74-106) mg/dL Calcium 8.1 L (8.4-10.2) mg/dL Total Bilirubin 1.00 (0.2-1.3) mg/dL AST 90 H (17-59) U/L ALT 41 (0-50) U/L Alkaline Phosphatase 63 (38-126) U/L Serum Total Protein 6.2 L (6.3-8.2) g/dL Albumin 3.3 L (3.5-5.0) g/dL Radiology Exams: Radiology Procedures Category Date Time Status CHEST 1 VIEW (PORTABLE) Stat Exams 06/25/25 14:02 Completed HIP UNI (2V) INCL PEL IF DONE Routine Exams 06/26/25 13:08 Completed HIP UNI (2V) INCL PEL IF DONE Stat Exams 06/25/25 14:02 Completed KNEE (1 OR 2 VIEW) Routine Exams 06/25/25 18:05 Completed Medications: Medications Generic Name Dose Route Start Last Admin Trade Name Freq PRN Reason Stop Dose Admin Hydrocodone Bitart/Acetaminophen 1 tab 06/27/25 14:00 Hydrocodone/Apap 5/325 1 Tab Tablet PO 07/02/25 13:59 Q4H PRN PRN PAIN 5-7 Aspirin 325 mg 06/26/25 15:00 06/27/25 09:43 Aspirin 325 Mg Tablet.Ec PO 07/25/25 10:01 325 mg DAILY DOYLE Administration Cyanocobalamin 1,000 mcg 06/26/25 10:00 06/27/25 09:43 Cyanocobalamin 500 Mcg Tablet PO 07/26/25 09:59 1,000 mcg DAILY DOYLE Administration Diazepam 0 mg 06/26/25 16:10 06/27/25 02:49 Diazepam 10 Mg/2 Ml Disp.Syringe IV 07/26/25 16:09 10 mg Q2H PRN PRN Administration CIWA SCORE Protocol Diphenhydramine HCl 12.5 - 25 mg 06/26/25 14:30 06/26/25 20:39 Diphenhydramine Hcl 50 Mg/Ml Vial IV 06/27/25 14:29 25 mg Q6H PRN PRN Administration FOR INTOLERABLE ITCHING Folic Acid 1 mg 06/26/25 10:00 06/27/25 09:44 Folic Acid 1 Mg Tablet PO 07/26/25 09:59 1 mg DAILY DOYLE Administration Hydromorphone HCl 1 mg 06/27/25 14:00 Hydromorphone 1 Mg/1ml Inj IV 06/29/25 02:00 Q2H PRN PRN PAIN 8-10 Potassium Chloride/Dextrose/Sod Cl 1,000 mls @ 200 mls/hr 06/27/25 08:30 06/27/25 08:37 Dextrose 5% -Nacl 0.9% 1000 Ml + Kcl 20 Meq IV 07/27/25 08:29 200 mls/hr .Q5H DOYLE Administration Loratadine 10 mg 06/26/25 14:30 Loratadine 10 Mg Tablet PO 06/27/25 14:29 QDP PRN ITCHING Melatonin 3 mg 06/25/25 23:07 06/26/25 00:14 Melatonin 3 Mg Tablet PO 07/25/25 23:06 3 mg HS PRN PRN Administration INSOMNIA Metoprolol Tartrate 25 mg 06/27/25 11:00 Metoprolol Tartrate 25 Mg Tab PO 07/27/25 10:59 BID DOYLE Morphine Sulfate 2 mg 06/26/25 14:30 Morphine Sulfate 2 Mg/Ml Inj IV 06/27/25 14:29 .Q30MIN PRN PRN BREAKTHROUGH ,SEVERE PAIN Multivitamins Therapeutic 1 tab 06/26/25 10:00 06/27/25 09:44 Multivitamins,Therapeutic 1 Tab Tab PO 07/26/25 09:59 1 tab QAM DOYLE Administration Nalbuphine HCl 5 mg 06/26/25 14:30 Nalbuphine Hcl 10 Mg/Ml Ampul IV 06/27/25 14:29 Q6H PRN PRN FOR INTOLERABLE ITCHING Naloxone HCl 0.4 mg 06/25/25 17:47 Naloxone Hcl 0.4 Mg/Ml Ml IV 07/25/25 17:46 PRN PRN RESPIRATORY DEPRESSION Naloxone HCl 0.1 mg 06/26/25 14:30 Naloxone Hcl 0.4 Mg/Ml Ml IV 06/27/25 14:29 PRN PRN Nystatin 0 gm 06/26/25 11:00 06/27/25 10:21 Nystatin 15 Gm Powder TP 07/26/25 10:59 Not Given BID DOYLE Ondansetron HCl 4 mg 06/26/25 14:30 Ondansetron Hcl 4 Mg/2 Ml Vial IV 06/27/25 14:29 PRN PRN NAUSEA Ondansetron HCl 4 mg 06/27/25 14:00 Ondansetron Hcl 4 Mg/2 Ml Vial IV 07/27/25 13:59 Q6H PRN PRN N/V Oxycodone/Acetaminophen 1 - 2 tab 06/26/25 14:30 Oxycodone Hcl/Apap 5 Mg/325 Mg Tablet PO 06/27/25 14:29 Q4H PRN PRN MODERATE PAIN Pantoprazole Sodium 20 mg 06/26/25 10:00 06/27/25 09:44 Pantoprazole 20 Mg Tab PO 07/26/25 09:59 20 mg DAILY DOYLE Administration Potassium Chloride 20 meq 06/27/25 08:00 06/27/25 09:42 Potassium Chloride Tab 10 Meq Tab PO 06/27/25 14:01 20 meq Q2H DOYLE Administration Sodium Chloride 10 ml 06/26/25 14:30 Normal Saline 10 Ml Flush IJ 06/27/25 14:29 PRN PRN MAINTAIN IV/SALINE LOCK Thiamine HCl 100 mg 06/26/25 10:00 06/27/25 09:44 Thiamine Hcl 100 Mg Tablet PO 07/26/25 09:59 100 mg DAILY DOYLE Administration Discontinued Medications Generic Name Dose Route Start Last Admin Trade Name Freq PRN Reason Stop Dose Admin Dexmedetomidine/Sodium Chloride Confirm 06/26/25 09:22 Dexmedetomidine In 0.9 % Nacl 80 Mcg/20 Ml Vial Administered 06/26/25 09:23 Dose 80 mcg IV .STK-MED ONE Diazepam 0 mg 06/25/25 17:44 Diazepam 5 Mg Tablet PO 07/25/25 17:43 Q2H PRN PRN CIWA SCORE Protocol Diazepam 0 mg 06/26/25 14:48 06/26/25 15:07 Diazepam 5 Mg Tablet PO 07/26/25 14:47 2.5 mg Q2H PRN PRN Administration CIWA SCORE Protocol Ephedrine Sulfate Confirm 06/26/25 11:31 Ephedrine Sulfate 50 Mg/Ml Administered 06/26/25 11:32 Dose 50 mg .ROUTE .STK-MED ONE Famotidine 20 mg 06/26/25 09:30 06/26/25 09:45 Famotidine 20 Mg/1 Vial IV 06/26/25 20:00 20 mg 1HRPRIOR DOYLE Administration Fentanyl Citrate Confirm 06/26/25 09:22 Fentanyl Citrate 100 Mcg/2 Ml* Vial Administered 06/26/25 09:23 Dose 100 mcg .ROUTE .STK-MED ONE Hydromorphone HCl 0.5 mg 06/25/25 14:01 06/25/25 14:15 Hydromorphone 1 Mg/1ml Inj IV 06/25/25 14:02 0.5 mg STAT ONE Administration Hydromorphone HCl Confirm 06/25/25 14:09 Hydromorphone 1 Mg/1ml Inj Administered 06/25/25 14:10 Dose 1 mg .ROUTE .STK-MED ONE Hydromorphone HCl 0.5 mg 06/25/25 14:55 06/25/25 15:07 Hydromorphone 1 Mg/1ml Inj IV 06/25/25 14:56 0.5 mg STAT ONE Administration Hydromorphone HCl Confirm 06/25/25 15:03 Hydromorphone 1 Mg/1ml Inj Administered 06/25/25 15:04 Dose 1 mg .ROUTE .STK-MED ONE Hydromorphone HCl 1 mg 06/25/25 17:46 06/26/25 03:35 Hydromorphone 1 Mg/1ml Inj IV 06/30/25 17:45 1 mg Q4H PRN PRN Administration PAIN Sodium Chloride 1,000 mls @ 999 mls/hr 06/25/25 14:01 06/25/25 15:20 Sodium Chloride 0.9% 1000 Ml IV 06/25/25 15:01 Infused .Q1H1M STA Infusion Sodium Chloride Confirm 06/25/25 14:10 Sodium Chloride 0.9% 1000 Ml Administered 06/25/25 14:11 Dose 1,000 mls @ ud .ROUTE .STK-MED ONE Sodium Chloride 1,000 mls @ 100 mls/hr 06/25/25 17:23 06/25/25 20:13 Sodium Chloride 0.9% 1000 Ml IV 07/25/25 17:22 Not Given .Q10H DOYLE Cefazolin Sodium 2 gm/ Sodium 100 mls @ 200 mls/hr 06/26/25 10:00 06/26/25 15:22 Chloride IV 06/26/25 10:29 Not Given ONCALLTOOR ONE TRANEXAMIC ACID IN NACL,ISO-OS 1,000 mg in 100 mls @ 600 mls/hr 06/25/25 17:47 06/25/25 20:13 Tranexamic 1,000 Mg/100ml-Nacl IV 06/25/25 17:56 Not Given ONCE ONE TRANEXAMIC ACID IN NACL,ISO-OS 1,000 mg in 100 mls @ 600 mls/hr 06/26/25 08:00 Tranexamic 1,000 Mg/100ml-Nacl IV 06/26/25 23:00 ONCALLTOOR DOYLE Dextrose/Sodium Chloride 1,000 mls @ 100 mls/hr 06/26/25 08:00 Dextrose 5%-Ns Iv Solution 1000 Ml IV 07/26/25 07:59 .Q10H DOYLE Sodium Chloride 1,000 mls @ 30 mls/hr 06/26/25 09:30 06/26/25 09:47 Sodium Chloride 0.9% 1000 Ml IV 06/27/25 18:49 30 mls/hr .Q24H DOYLE Administration Sodium Chloride Confirm 06/26/25 11:53 Sodium Chloride 0.9% 1000 Ml Administered 06/26/25 11:54 Dose 1,000 mls @ ud .ROUTE .STK-MED ONE Phenylephrine HCl 10 mg/ 250 mls @ 90 mls/hr 06/26/25 11:57 Dextrose IV 07/26/25 11:56 .Q2H47M PRN HYPOTENSION Protocol 60 MCG/MIN Sodium Chloride 1,000 mls @ 100 mls/hr 06/26/25 14:45 06/27/25 10:16 Sodium Chloride 0.9% 1000 Ml IV 06/26/25 23:30 Not Given .Q10H DOYLE Cefazolin Sodium 2 gm/ Sodium 100 mls @ 200 mls/hr 06/26/25 15:00 06/26/25 23:25 Chloride IV 06/26/25 23:29 200 mls/hr Q8H DOYLE Administration Lorazepam 1 mg 06/25/25 14:56 06/25/25 15:06 Lorazepam 2 Mg/1 Ml 2 Mg Vial IV 06/25/25 14:57 1 mg STAT ONE Administration Lorazepam 1 mg 06/26/25 09:20 06/26/25 09:46 Lorazepam 2 Mg/1 Ml 2 Mg Vial IV 06/26/25 09:21 1 mg STAT ONE Administration Lorazepam 1 mg 06/26/25 13:26 06/26/25 15:21 Lorazepam 2 Mg/1 Ml 2 Mg Vial IV 06/26/25 13:27 Not Given STAT ONE Lorazepam 20 mg 06/26/25 13:36 Lorazepam 20 Mg/10 Ml Mdv .ROUTE 06/26/25 13:37 .STK-MED ONE Metoclopramide HCl 10 mg 06/26/25 09:30 06/26/25 09:45 Metoclopramide Hcl 10 Mg/2 Ml Vial IV 06/26/25 20:00 10 mg 1HRPRIOR DOYLE Administration Midazolam HCl Confirm 06/26/25 09:22 Midazolam Hcl 2 Mg/2 Ml Vial Administered 06/26/25 09:23 Dose 2 mg .ROUTE .STK-MED ONE Midazolam HCl Confirm 06/26/25 13:08 Midazolam Hcl 2 Mg/2 Ml Vial Administered 06/26/25 13:09 Dose 2 mg .ROUTE .STK-MED ONE Morphine Sulfate Confirm 06/26/25 09:26 Morphine Sulfate 5 Mg/10 Ml Pf Ampul Administered 06/26/25 09:27 Dose 5 mg .ROUTE .STK-MED ONE Non-Formulary Medication 20 mg 06/26/25 10:00 Omeprazole 20 Mg [Prilosec 20 Mg] PO 07/26/25 09:59 DAILY DOYLE Non-Formulary Medication 1 each 06/27/25 10:00 06/27/25 10:17 Hold Narcotic Analgesics/Sedatives 1 Each Each 06/27/25 10:01 Not Given DAILY DOYLE Ondansetron HCl 4 mg 06/25/25 14:01 06/25/25 14:12 Ondansetron Hcl 4 Mg/2 Ml Vial IV 06/25/25 14:02 4 mg STAT ONE Administration Ondansetron HCl Confirm 06/25/25 14:09 Ondansetron Hcl 4 Mg/2 Ml Vial Administered 06/25/25 14:10 Dose 4 mg .ROUTE .STK-MED ONE Phenylephrine HCl Confirm 06/26/25 11:01 Phenylephrine 10 Mg/Ml Vial Administered 06/26/25 11:02 Dose 10 mg .ROUTE .STK-MED ONE Propofol Confirm 06/26/25 10:32 Propofol 200 Mg/20 Ml Vial Administered 06/26/25 10:33 Dose 200 mg IV .STK-MED ONE Propofol Confirm 06/26/25 11:57 Propofol 200 Mg/20 Ml Vial Administered 06/26/25 11:58 Dose 200 mg IV .STK-MED ONE Multi-Disciplinary Progress Notes: Multi-Disciplinary Progress Notes 06/26/25 12:02 Case Management Note by Shalini Peoples Addendum entered by Shalini Peoples RN 06/26/25 12:05: PATIENT STATES HE HAS NO BILL EXCEPT FOR UTILITIES. HE OWNS HIS HOME AND TRUCK, BUT BASEMENT IS FLOODED RIGHT NOW AND HAS NO INSURANCE. APPARENTLY HOUSE IS GOING UP IN [place] D/T NON-PAYMENT OF TAXES. HE HAS NO EQUIPMENT AND WHILE HIS SON DOESN'T WORK, HE DOESN'T HELP HIM. HIS "DIONI" IS HIS ONLY HELP. Original Note: REFERRAL TO [facility] TO SEE ABOUT ANY ADDITIONAL RESOURCES AVAILABLE FOR PATIENT. Initialized on 06/26/25 12:02 - END OF NOTE Assessment/Plan (1) Subcapital fracture of right hip Current Visit: Yes Status: Acute Qualifiers: Encounter type: initial encounter Fracture type: closed Qualified Code(s): S72.011A - Unspecified intracapsular fracture of right femur, initial encounter for closed fracture Code(s): S72.011A - UNSP INTRACAPSULAR FRACTURE OF RIGHT FEMUR, INIT FOR CLOS FX (2) Right knee pain Current Visit: Yes Status: Acute Code(s): M25.561 - PAIN IN RIGHT KNEE (3) Fall (on) (from) other stairs and steps, initial encounter Current Visit: Yes Status: Acute Code(s): W10.9XXA - FALL (ON) (FROM) UNSPECIFIED STAIRS AND STEPS, INIT ENCNTR (4) Hyponatremia Current Visit: Yes Status: Acute Code(s): E87.1 - HYPO-OSMOLALITY AND HYPONATREMIA (5) HTN (hypertension) Current Visit: Yes Status: Acute Code(s): I10 - ESSENTIAL (PRIMARY) HYPERTENSION (6) Alcohol use Current Visit: No Status: Chronic Code(s): Z78.9 - OTHER SPECIFIED HEALTH STATUS (7) Marijuana dependence Current Visit: Yes Status: Chronic Code(s): F12.20 - CANNABIS DEPENDENCE, UNCOMPLICATED (8) Vitamin B12 deficiency Current Visit: Yes Status: Acute Assessment & Plan: 1) Subcapital fracture of right hip Current Visit: Yes Status: Acute Qualifiers: Encounter type: initial encounter Fracture type: closed Qualified Code(s): S72.011A - Unspecified intracapsular fracture of right femur, initial encounter for closed fracture Assessment & Plan: - 2:2 fall down stairs - Right hip XR: AP pelvis and 2 view right hip demonstrates slightly impacted right subcapital femur fracture. Elsewhere osteopenia, mild lower lumbar degenerative spondylosis, and a few pelvic phleboliths - Ortho consult- surgery in AM - NPO at midnight - SCD's - IV narcotic pain medication 06/26 - To OR with ortho today - WBC 10.3 - CBC, CMP reviewed - Ortho started ASA 325mg daily, narcotic pain meds PRN 06/27 - POD #2 - WBC 9.1- improving - OT eval this AM - + confusion with restraints applied last night- resolved this AM and no restraints Code(s): S72.011A - UNSP INTRACAPSULAR FRACTURE OF RIGHT FEMUR, INIT FOR CLOS FX (2) Right knee pain Current Visit: Yes Status: Acute Assessment & Plan: - XR right knee pending - Pain and edema of right knee 06/26 - Reviewed Knee XR with ortho and per ortho non- concerning and likely congenital Code(s): M25.561 - PAIN IN RIGHT KNEE (3) Fall (on) (from) other stairs and steps, initial encounter Current Visit: Yes Status: Acute Assessment & Plan: - Fall/Slip on steps Sunday and unable to bear weight on right leg since - See plans above Code(s): W10.9XXA - FALL (ON) (FROM) UNSPECIFIED STAIRS AND STEPS, INIT ENCNTR (4) Hyponatremia Current Visit: Yes Status: Acute Assessment & Plan: - Na+ 129- trend - Likely 2:2 beer potomania - IV fluids stopped - Urine Na+ and urine osmo pending. - Consider 1L fluid restriction 06/26 - Na+ 126 - D5 NS at 100 ml /hr started - Urine Na+ 44 - Urine osmo pending 06/27 - Na+ 126 - Started D5NS with 20 KCL at 200ml/hr, will recheck Na+ and K+ in 6 hrs. Code(s): E87.1 - HYPO-OSMOLALITY AND HYPONATREMIA (5) HTN (hypertension) Current Visit: Yes Status: Acute Assessment & Plan: - 2:2 pain? IV pain meds provided - Pt reports a hx of HTN but not currently taking meds for this. 06/26 - Bp stable Code(s): I10 - ESSENTIAL (PRIMARY) HYPERTENSION (6) Alcohol use Current Visit: No Status: Chronic Assessment & Plan: - Drinks 8-10 beers per day - Alcohol level in AM - CIWA protocol 06/27 - Placed in ICU bed closer to nurses station last night d/t confusion - AST trending up 90 - Hepatitis panel - Consider US liver Sunday Code(s): Z78.9 - OTHER SPECIFIED HEALTH STATUS (7) Marijuana dependence Current Visit: Yes Status: Chronic Assessment & Plan: - Smokes monthly - Advised cessation Code(s): F12.20 - CANNABIS DEPENDENCE, UNCOMPLICATED (8) Vitamin B12 deficiency Current Visit: Yes Status: Acute Assessment & Plan: - Iron panel - B12 202- daily PO replacement started Code(s): E53.8 - DEFICIENCY OF OTHER SPECIFIED B GROUP VITAMINS (9) Yeast dermatitis Current Visit: Yes Status: Acute Assessment & Plan: - Nystatin cream to groin Code(s): B37.2 - CANDIDIASIS OF SKIN AND NAIL (10) Tachycardia Current Visit: Yes Status: Acute Assessment & Plan: - Metoprolol started BID Code(s): R00.0 - TACHYCARDIA, UNSPECIFIED (11) Hypokalemia Current Visit: Yes Status: Acute Assessment & Plan: - K+ 3.4 - K+ added to IVF - Will recheck in 6 hours VTE: SCD's PPI: Protonix Next of KIN: Child- Ren Navarrete D/C plan: pending ortho recs Code status:Full Plan of care time: > 45 minutes Code(s): E87.6 - HYPOKALEMIA
[2025-06-27] MEDS: TYLENOL 325 MG PO PRN (10:52)
[2025-06-27] MEDS: Lopressor 25MG Tab PO SCH (11:05)
[2025-06-27 12:30] LABS: Potassium 3.5 mmol/L (3.5-5.1)
[2025-06-27] MEDS ORDERED: Zofran 4 MG/2 ML VIAL IV PRN (14:00)
[2025-06-27] MEDS: NORCO 5/325 MG PO PRN (17:51)
[2025-06-27] MEDS ORDERED: Klor Con ONE (18:22)
[2025-06-27] MEDS: Hydromorphone 1 mg/ml Injection IV PRN (20:57)
[2025-06-28 05:56] LABS: Hematocrit 27.6 % (40.1-51.0); Hemoglobin 9.3 g/dL (13.7-17.5); Mean Corpuscular Hemoglobin 32.4 pg (25.7-32.2); Mean Corpuscular Hgb Concent. 33.7 g/dL (32.3-36.5); Platelet Count 172 x10^3/uL (163-337); Red Blood Count 2.87 x10^6/uL (4.63-6.08); White Blood Count 9.7 x10^3/uL (4.23-9.07)
[2025-06-28 06:11] LABS: Calcium 7.5 mg/dL (8.4-10.2); Carbon Dioxide 22.0 mmol/L (22-30); Creatinine 1 0.53 mg/dL (0.66-1.25); EST GLOMERULAR FILTRATION RATE 113.3 ML/MIN; Glucose 152.0 mg/dL (74-106); Potassium 3.6 mmol/L (3.5-5.1); SGOT/AST 71.0 U/L (17-59); SGPT/ALT 27.0 U/L (0-50); Total Protein 5.6 g/dL (6.3-8.2)
[2025-06-28] MEDS: Tums EX 750 MG PO SCH (08:24)
--- NOTE | 2025-06-28 09:02 | XRAY ---
CLINICAL HISTORY: right hip pain, magdiel have reinjured COMPARISON: 06/26/2025 CR. TECHNIQUE: X-ray images of the right hip joints in AP and lateral projection. FINDINGS: Hip Joints: A right partial hip replacement implant is in place, appropriately sited and aligned. No evidence to suggest loosening or displacement of the implant. A small marginal osteophyte of the acetabular roof is seen. The right sacroiliac joint appears normal and unremarkable. No evidence of sacroiliitis or significant degenerative changes. Symphysis Pubis: Symphysis pubis is normal and intact. No evidence of separation or widening. Soft Tissues: Visualized soft tissues are normal and unremarkable. No soft tissue swelling, calcifications, or masses. Additional Findings: No other significant abnormalities noted. IMPRESSION: Intact right hip implant with no evidence of displacement or loosening. No significant interval changes. Disclaimer: A subtle bone abnormality or fracture may not be readily apparent on X-rays, thus clinical correlation and further imaging including follow-up CT, MRI, or follow-up X-rays are advised as needed. Electronically Signed by: True Valenzuela MD. (06/28/2025 09:01:45 EDT)
--- NOTE | 2025-06-28 10:38 | PCM.NOTE ---
Date and Time: 06/28/25 1027 Subjective Assessment: 06/25/25 is a A 64-year-old male with a past medical history of daily alcohol use (89 beers per day), cataracts, hypertension, GERD, and occasional marijuana use (monthly) presented to the emergency department after a fall on Sunday when he slipped down stairs and landed on concrete. Since the fall, he has been unable to stand or ambulate. He also reports right knee pain with associated edema, which was not imaged in the ER; a right knee X-ray will be ordered for further evaluation. X-ray imaging of the pelvis and right hip demonstrated a slightly impacted right subcapital femur fracture, with additional findings of osteopenia, mild lower lumbar degenerative spondylosis, and several pelvic phleboliths. On arrival, vital signs showed heart rate 108 with sinus tachycardia, and he will be placed on telemetry for monitoring. Blood pressure was elevated at 157/86, likely secondary to pain, and IV Dilaudid was initiated for pain control. The patient is to remain NPO after midnight in preparation for right hip surgery tomorrow with Dr. Powers. He was also started on the CIWA protocol for alcohol withdrawal but currently denies any withdrawal symptoms. Laboratory studies showed WBC 9.7, hemoglobin 13.6, sodium 129, and glucose 111, with hemoglobin A1C pending. IV fluids started in the ER were discontinued due to concern for beer potomania contributing to hyponatremia. The patient reports his last alcohol intake was yesterday evening and none today. On exam, he remains unable to bear weight on the right leg. He had a smith placed while in the ER. He is currently on bed rest per orthopedic recommendations. He denies chest pain, shortness of breath, abdominal pain, nausea, vomiting, or diarrhea. 06/26/25 Pt to OR today with ortho for right hip surgery. XR right knee reviewed and discussed with ortho as well. Vitamin B12 low and daily replacement started. Na+ 126 today and D5NS started. Pt continues to be tachycardiac and on CIWA protocol for alcohol withdrawal. He denies any further concerns than right hip and knee pain. 06/27/25 The patient is postoperative day two following right hip surgery. Overnight, he became confused and attempted to remove his postoperative dressing, requiring restraints, which were discontinued by 7 a.m. Today, he is alert and oriented. His heart rate was noted at 120, and Valium was administered per alcohol withdrawal protocol without effect on heart rate, so metoprolol was initiated. The patient denies hip pain and is refusing narcotic pain medications but requested acetaminophen for headache. He participated with occupational therapy this morning and performed well. Laboratory results revealed potassium of 3.4, which was replaced, and sodium of 126; he was started on D5NS with 20 mEq KCl at 200 mL/hr, with plans to trend sodium every six hours. He refused nystatin treatment for a groin yeast infection. Orthopedic evaluation is pending. The patient denies any additional concerns at this time. 06/28/25 Pt resting in the chair this AM. Per nurse pt got his right leg up behind his back the previous day. Today he is c/o increased pain and XR of right hip ordered. Pain block may be wearing off. Na+ 127, per nurse lst night pt drank a large amount of water. IVF stopped and placed on fluid restriction. Potassium corrected. Corrected Ca+ 8.1, started TUMS tabs BID. PT/OT to work with pt in AM. Pt denies any further concerns at this time. - Review of Systems Constitutional: No Fever, No Chills Eyes: No Symptoms Ears, Nose, & Throat: No Symptoms Respiratory: No Cough, No Short Of Breath Cardiac: No Chest Pain, No Edema, No Syncope Abdominal/Gastrointestinal: No Abdominal Pain, No Nausea, No Vomiting, No Diarrhea Genitourinary Symptoms: No Dysuria Musculoskeletal: Joint Pain (right hip), No Back Pain, No Neck Pain Skin: No Rash Neurological: No Dizziness, No Focal Weakness, No Sensory Changes Psychological: No Symptoms Endocrine: No Symptoms Hematologic/Lymphatic: No Symptoms Immunological/Allergic: No Symptoms Objective Exam General Appearance: no apparent distress, alert Neurologic Exam: alert, 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, cooperative, normal mood/affect, nml cerebellar function, sensation nml, No motor deficits Skin Exam: normal color, warm, dry Wound Assessment: Skin/Wound Assessment Wound/Incision Assessment Start: 06/26/25 10:36 Text: Status: Active Freq: Q6H Protocol: Document 06/28/25 04:00 KW (Rec: 06/28/25 04:11 KW [id number]) Wound/Incision Assessment LAT RT HIP Wound Assessment Shift Assessment Wound Type Incision Dressing Status Dry & Intact Drainage Amount None General Appearance Clean/Dry Surrounding Tissue Edematous Primary Dressing Hydrocolloid Comment dressing clean/dry/intact Wound Photo Photo Taken No Eye Exam: PERRL, EOMI, eyes nml inspection Ears, Nose, Throat Exam: normal ENT inspection, pharynx normal, moist mucous membranes Neck Exam: normal inspection, non-tender, supple, full range of motion Respiratory Exam: normal breath sounds, lungs clear, No respiratory distress Cardiovascular Exam: regular rate/rhythm, normal heart sounds, tachycardia Gastrointestinal/Abdomen Exam: soft, No tenderness, No mass Extremity Exam: normal inspection, normal range of motion, limited range of motion (right hip), tenderness (right hip) Back Exam: normal inspection, normal range of motion, No CVA tenderness, No vertebral tenderness Male Genitalia Exam: deferred Rectal Exam: deferred Objective Data Vital Signs: Vital Signs - 24 hr Temp Pulse Resp BP Pulse Ox 06/28/25 08:00 97.8 F 109 H 16 171/89 99 06/28/25 03:54 97.8 F 104 H 18 152/87 98 06/27/25 23:45 97.9 F 94 H 18 125/86 98 06/27/25 19:48 99.8 F 104 H 18 132/72 96 06/27/25 15:52 97.9 F 101 H 16 120/79 99 06/27/25 12:56 98.6 F 94 H 16 121/77 95 Pain Assessment - Last Documented Pain Intensity [Right Hip] 8 Pain Intensity 4 Pain Scale Used 0-10 Pain Scale Intake and Output: Intake & Output 06/25/25 06/26/25 06/27/25 06/28/25 11:59 11:59 11:59 11:59 Intake Total 900 1300 4491 Output Total 1450 2450 2825 Balance -550 -1150 1666 Weight 97.2 kg 97.2 kg Lab Results: Lab Results-Last 24 Hours 06/27/25 06/27/25 06/28/25 Range/Units 12:16 18:08 00:42 WBC (4.23-9.07) x10^3/uL RBC (4.63-6.08) x10^6/uL Hgb (13.7-17.5) g/dL Hct (40.1-51.0) % MCV (79.0-92.2) fL MCH (25.7-32.2) pg MCHC (32.3-36.5) g/dL RDW (11.6-14.4) % Plt Count (163-337) x10^3/uL MPV (9.4-12.4) fL Sodium 127 L 129 L 128 L (135-145) mmol/L Potassium 3.5 (3.5-5.1) mmol/L Chloride (98-107) mmol/L Carbon Dioxide (22-30) mmol/L Anion Gap (5-15) MEQ/L BUN (9-20) mg/dL Creatinine (0.66-1.25) mg/dL Estimated GFR ML/MIN Glucose (74-106) mg/dL Calcium (8.4-10.2) mg/dL Magnesium 2.1 (1.6-2.3) mg/dL Total Bilirubin (0.2-1.3) mg/dL AST (17-59) U/L ALT (0-50) U/L Alkaline Phosphatase (38-126) U/L Serum Total Protein (6.3-8.2) g/dL Albumin (3.5-5.0) g/dL 06/28/25 06/28/25 Range/Units 05:34 05:34 WBC 9.7 H (4.23-9.07) x10^3/uL RBC 2.87 L (4.63-6.08) x10^6/uL Hgb 9.3 L (13.7-17.5) g/dL Hct 27.6 L (40.1-51.0) % MCV 96.2 H (79.0-92.2) fL MCH 32.4 H (25.7-32.2) pg MCHC 33.7 (32.3-36.5) g/dL RDW 12.4 (11.6-14.4) % Plt Count 172 (163-337) x10^3/uL MPV 9.6 (9.4-12.4) fL Sodium 127 L (135-145) mmol/L Potassium 3.6 (3.5-5.1) mmol/L Chloride 101 (98-107) mmol/L Carbon Dioxide 22 (22-30) mmol/L Anion Gap 7.6 (5-15) MEQ/L BUN 6 L (9-20) mg/dL Creatinine 0.53 L (0.66-1.25) mg/dL Estimated GFR 113.3 ML/MIN Glucose 152 H (74-106) mg/dL Calcium 7.5 L (8.4-10.2) mg/dL Magnesium 2.0 (1.6-2.3) mg/dL Total Bilirubin 0.50 (0.2-1.3) mg/dL AST 71 H (17-59) U/L ALT 27 (0-50) U/L Alkaline Phosphatase 57 (38-126) U/L Serum Total Protein 5.6 L (6.3-8.2) g/dL Albumin 2.7 L (3.5-5.0) g/dL Radiology Exams: Radiology Procedures Category Date Time Status HIP UNI (2V) INCL PEL IF DONE Routine Exams 06/26/25 13:08 Completed HIP UNI (2V) INCL PEL IF DONE Routine Exams 06/28/25 08:09 Completed Medications: Medications Generic Name Dose Route Start Last Admin Trade Name Freq PRN Reason Stop Dose Admin Acetaminophen 650 mg 06/27/25 10:22 06/27/25 10:52 Acetaminophen 325 Mg Tablet PO 07/27/25 10:21 650 mg Q6H PRN PRN Administration PAIN AND/OR FEVER Hydrocodone Bitart/Acetaminophen 1 tab 06/27/25 14:00 06/28/25 08:22 Hydrocodone/Apap 5/325 1 Tab Tablet PO 07/02/25 13:59 1 tab Q4H PRN PRN Administration PAIN 5-7 Aspirin 325 mg 06/26/25 15:00 06/28/25 08:22 Aspirin 325 Mg Tablet.Ec PO 07/25/25 10:01 325 mg DAILY DOYLE Administration Calcium Carbonate/Glycine 750 mg 06/28/25 10:00 06/28/25 08:24 Calcium Carbonate 750 Mg 750 Mg Tab.Chew PO 07/28/25 09:59 750 mg BID DOYLE Administration Cyanocobalamin 1,000 mcg 06/26/25 10:00 06/28/25 08:23 Cyanocobalamin 500 Mcg Tablet PO 07/26/25 09:59 1,000 mcg DAILY DOYLE Administration Diazepam 0 mg 06/26/25 16:10 06/27/25 02:49 Diazepam 10 Mg/2 Ml Disp.Syringe IV 07/26/25 16:09 10 mg Q2H PRN PRN Administration CIWA SCORE Protocol Folic Acid 1 mg 06/26/25 10:00 06/28/25 08:22 Folic Acid 1 Mg Tablet PO 07/26/25 09:59 1 mg DAILY DOYLE Administration Hydromorphone HCl 1 mg 06/27/25 14:00 06/27/25 20:57 Hydromorphone 1 Mg/1ml Inj IV 06/29/25 02:00 1 mg Q2H PRN PRN Administration PAIN 8-10 Potassium Chloride/Dextrose/Sod Cl 1,000 mls @ 200 mls/hr 06/27/25 08:30 06/28/25 04:40 Dextrose 5% -Nacl 0.9% 1000 Ml + Kcl 20 Meq IV 07/27/25 08:29 200 mls/hr .Q5H DOYLE Administration Melatonin 3 mg 06/25/25 23:07 06/27/25 20:56 Melatonin 3 Mg Tablet PO 07/25/25 23:06 3 mg HS PRN PRN Administration INSOMNIA Metoprolol Tartrate 25 mg 06/27/25 11:00 06/28/25 08:23 Metoprolol Tartrate 25 Mg Tab PO 07/27/25 10:59 25 mg BID DOYLE Administration Multivitamins Therapeutic 1 tab 06/26/25 10:00 06/28/25 08:22 Multivitamins,Therapeutic 1 Tab Tab PO 07/26/25 09:59 1 tab QAM DOYLE Administration Naloxone HCl 0.4 mg 06/25/25 17:47 Naloxone Hcl 0.4 Mg/Ml Ml IV 07/25/25 17:46 PRN PRN RESPIRATORY DEPRESSION Nystatin 0 gm 06/26/25 11:00 06/28/25 10:00 Nystatin 15 Gm Powder TP 07/26/25 10:59 Not Given BID DOYLE Ondansetron HCl 4 mg 06/27/25 14:00 Ondansetron Hcl 4 Mg/2 Ml Vial IV 07/27/25 13:59 Q6H PRN PRN N/V Pantoprazole Sodium 20 mg 06/26/25 10:00 06/28/25 08:23 Pantoprazole 20 Mg Tab PO 07/26/25 09:59 20 mg DAILY DOYLE Administration Thiamine HCl 100 mg 06/26/25 10:00 06/28/25 08:23 Thiamine Hcl 100 Mg Tablet PO 07/26/25 09:59 100 mg DAILY DOYLE Administration Discontinued Medications Generic Name Dose Route Start Last Admin Trade Name Abimael PRN Reason Stop Dose Admin Dexmedetomidine/Sodium Chloride Confirm 06/26/25 09:22 Dexmedetomidine In 0.9 % Nacl 80 Mcg/20 Ml Vial Administered 06/26/25 09:23 Dose 80 mcg IV .STK-MED ONE Diazepam 0 mg 06/25/25 17:44 Diazepam 5 Mg Tablet PO 07/25/25 17:43 Q2H PRN PRN CIWA SCORE Protocol Diazepam 0 mg 06/26/25 14:48 06/26/25 15:07 Diazepam 5 Mg Tablet PO 07/26/25 14:47 2.5 mg Q2H PRN PRN Administration CIWA SCORE Protocol Diphenhydramine HCl 12.5 - 25 mg 06/26/25 14:30 06/26/25 20:39 Diphenhydramine Hcl 50 Mg/Ml Vial IV 06/27/25 14:29 25 mg Q6H PRN PRN Administration FOR INTOLERABLE ITCHING Ephedrine Sulfate Confirm 06/26/25 11:31 Ephedrine Sulfate 50 Mg/Ml Administered 06/26/25 11:32 Dose 50 mg .ROUTE .STK-MED ONE Famotidine 20 mg 06/26/25 09:30 06/26/25 09:45 Famotidine 20 Mg/1 Vial IV 06/26/25 20:00 20 mg 1HRPRIOR DOYLE Administration Fentanyl Citrate Confirm 06/26/25 09:22 Fentanyl Citrate 100 Mcg/2 Ml* Vial Administered 06/26/25 09:23 Dose 100 mcg .ROUTE .STK-MED ONE Hydromorphone HCl 0.5 mg 06/25/25 14:01 06/25/25 14:15 Hydromorphone 1 Mg/1ml Inj IV 06/25/25 14:02 0.5 mg STAT ONE Administration Hydromorphone HCl Confirm 06/25/25 14:09 Hydromorphone 1 Mg/1ml Inj Administered 06/25/25 14:10 Dose 1 mg .ROUTE .STK-MED ONE Hydromorphone HCl 0.5 mg 06/25/25 14:55 06/25/25 15:07 Hydromorphone 1 Mg/1ml Inj IV 06/25/25 14:56 0.5 mg STAT ONE Administration Hydromorphone HCl Confirm 06/25/25 15:03 Hydromorphone 1 Mg/1ml Inj Administered 06/25/25 15:04 Dose 1 mg .ROUTE .STK-MED ONE Hydromorphone HCl 1 mg 06/25/25 17:46 06/26/25 03:35 Hydromorphone 1 Mg/1ml Inj IV 06/30/25 17:45 1 mg Q4H PRN PRN Administration PAIN Sodium Chloride 1,000 mls @ 999 mls/hr 06/25/25 14:01 06/25/25 15:20 Sodium Chloride 0.9% 1000 Ml IV 06/25/25 15:01 Infused .Q1H1M STA Infusion Sodium Chloride Confirm 06/25/25 14:10 Sodium Chloride 0.9% 1000 Ml Administered 06/25/25 14:11 Dose 1,000 mls @ ud .ROUTE .STK-MED ONE Sodium Chloride 1,000 mls @ 100 mls/hr 06/25/25 17:23 06/25/25 20:13 Sodium Chloride 0.9% 1000 Ml IV 07/25/25 17:22 Not Given .Q10H DOYLE Cefazolin Sodium 2 gm/ Sodium 100 mls @ 200 mls/hr 06/26/25 10:00 06/26/25 15:22 Chloride IV 06/26/25 10:29 Not Given ONCALLTOOR ONE TRANEXAMIC ACID IN NACL,ISO-OS 1,000 mg in 100 mls @ 600 mls/hr 06/25/25 17:47 06/25/25 20:13 Tranexamic 1,000 Mg/100ml-Nacl IV 06/25/25 17:56 Not Given ONCE ONE TRANEXAMIC ACID IN NACL,ISO-OS 1,000 mg in 100 mls @ 600 mls/hr 06/26/25 08:00 Tranexamic 1,000 Mg/100ml-Nacl IV 06/26/25 23:00 ONCALLTOOR DOYLE Dextrose/Sodium Chloride 1,000 mls @ 100 mls/hr 06/26/25 08:00 Dextrose 5%-Ns Iv Solution 1000 Ml IV 07/26/25 07:59 .Q10H DOYLE Sodium Chloride 1,000 mls @ 30 mls/hr 06/26/25 09:30 06/26/25 09:47 Sodium Chloride 0.9% 1000 Ml IV 06/27/25 18:49 30 mls/hr .Q24H DOYLE Administration Sodium Chloride Confirm 06/26/25 11:53 Sodium Chloride 0.9% 1000 Ml Administered 06/26/25 11:54 Dose 1,000 mls @ ud .ROUTE .STK-MED ONE Phenylephrine HCl 10 mg/ 250 mls @ 90 mls/hr 06/26/25 11:57 Dextrose IV 07/26/25 11:56 .Q2H47M PRN HYPOTENSION Protocol 60 MCG/MIN Sodium Chloride 1,000 mls @ 100 mls/hr 06/26/25 14:45 06/27/25 10:16 Sodium Chloride 0.9% 1000 Ml IV 06/26/25 23:30 Not Given .Q10H DOYLE Cefazolin Sodium 2 gm/ Sodium 100 mls @ 200 mls/hr 06/26/25 15:00 06/26/25 23:25 Chloride IV 06/26/25 23:29 200 mls/hr Q8H DOYLE Administration Loratadine 10 mg 06/26/25 14:30 Loratadine 10 Mg Tablet PO 06/27/25 14:29 QDP PRN ITCHING Lorazepam 1 mg 06/25/25 14:56 06/25/25 15:06 Lorazepam 2 Mg/1 Ml 2 Mg Vial IV 06/25/25 14:57 1 mg STAT ONE Administration Lorazepam 1 mg 06/26/25 09:20 06/26/25 09:46 Lorazepam 2 Mg/1 Ml 2 Mg Vial IV 06/26/25 09:21 1 mg STAT ONE Administration Lorazepam 1 mg 06/26/25 13:26 06/26/25 15:21 Lorazepam 2 Mg/1 Ml 2 Mg Vial IV 06/26/25 13:27 Not Given STAT ONE Lorazepam 20 mg 06/26/25 13:36 Lorazepam 20 Mg/10 Ml Mdv .ROUTE 06/26/25 13:37 .STK-MED ONE Metoclopramide HCl 10 mg 06/26/25 09:30 06/26/25 09:45 Metoclopramide Hcl 10 Mg/2 Ml Vial IV 06/26/25 20:00 10 mg 1HRPRIOR DOYLE Administration Midazolam HCl Confirm 06/26/25 09:22 Midazolam Hcl 2 Mg/2 Ml Vial Administered 06/26/25 09:23 Dose 2 mg .ROUTE .STK-MED ONE Midazolam HCl Confirm 06/26/25 13:08 Midazolam Hcl 2 Mg/2 Ml Vial Administered 06/26/25 13:09 Dose 2 mg .ROUTE .STK-MED ONE Morphine Sulfate Confirm 06/26/25 09:26 Morphine Sulfate 5 Mg/10 Ml Pf Ampul Administered 06/26/25 09:27 Dose 5 mg .ROUTE .STK-MED ONE Morphine Sulfate 2 mg 06/26/25 14:30 Morphine Sulfate 2 Mg/Ml Inj IV 06/27/25 14:29 .Q30MIN PRN PRN BREAKTHROUGH ,SEVERE PAIN Nalbuphine HCl 5 mg 06/26/25 14:30 Nalbuphine Hcl 10 Mg/Ml Ampul IV 06/27/25 14:29 Q6H PRN PRN FOR INTOLERABLE ITCHING Naloxone HCl 0.1 mg 06/26/25 14:30 Naloxone Hcl 0.4 Mg/Ml Ml IV 06/27/25 14:29 PRN PRN Non-Formulary Medication 20 mg 06/26/25 10:00 Omeprazole 20 Mg [Prilosec 20 Mg] PO 07/26/25 09:59 DAILY DOYLE Non-Formulary Medication 1 each 06/27/25 10:00 06/27/25 10:17 Hold Narcotic Analgesics/Sedatives 1 Each Each 06/27/25 10:01 Not Given DAILY DOYLE Ondansetron HCl 4 mg 06/25/25 14:01 06/25/25 14:12 Ondansetron Hcl 4 Mg/2 Ml Vial IV 06/25/25 14:02 4 mg STAT ONE Administration Ondansetron HCl Confirm 06/25/25 14:09 Ondansetron Hcl 4 Mg/2 Ml Vial Administered 06/25/25 14:10 Dose 4 mg .ROUTE .STK-MED ONE Ondansetron HCl 4 mg 06/26/25 14:30 Ondansetron Hcl 4 Mg/2 Ml Vial IV 06/27/25 14:29 PRN PRN NAUSEA Oxycodone/Acetaminophen 1 - 2 tab 06/26/25 14:30 Oxycodone Hcl/Apap 5 Mg/325 Mg Tablet PO 06/27/25 14:29 Q4H PRN PRN MODERATE PAIN Phenylephrine HCl Confirm 06/26/25 11:01 Phenylephrine 10 Mg/Ml Vial Administered 06/26/25 11:02 Dose 10 mg .ROUTE .STK-MED ONE Potassium Chloride 20 meq 06/27/25 08:00 06/27/25 18:23 Potassium Chloride Tab 10 Meq Tab PO 06/27/25 14:01 20 meq Q2H DOYLE Administration Potassium Chloride Confirm 06/27/25 18:22 Potassium Chloride Tab 10 Meq Tab Administered 06/27/25 18:23 Dose 20 meq .ROUTE .STK-MED ONE Propofol Confirm 06/26/25 10:32 Propofol 200 Mg/20 Ml Vial Administered 06/26/25 10:33 Dose 200 mg IV .STK-MED ONE Propofol Confirm 06/26/25 11:57 Propofol 200 Mg/20 Ml Vial Administered 06/26/25 11:58 Dose 200 mg IV .STK-MED ONE Sodium Chloride 10 ml 06/26/25 14:30 Normal Saline 10 Ml Flush IJ 06/27/25 14:29 PRN PRN MAINTAIN IV/SALINE LOCK Multi-Disciplinary Progress Notes: Multi-Disciplinary Progress Notes 06/27/25 10:49 OT Plan of Care Note by Grace (L#[id number])Sheyla OT Eval OT Inpatient Eval and POC Start: 06/26/25 14:22 Freq: ROUTINE Status: Active Protocol: Created 06/26/25 14:23 [facility] (Rec: 06/26/25 14:23 [facility] [id number]) Document 06/27/25 10:31 KA (Rec: 06/27/25 10:38 KA [id number]) OT Evaluation Subjective PATIENT IS AGREEABLE TO OT EVAL THIS DATE; HIS NEPHEW WAS VISITING IN ROOM AT BEGINNING OF EVALUATION. Pertinent Past Medical History SEE PMH BELOW Prior Level of Function RADHA REPORTS RESIDING ALONE IN 1 LEVEL HOME WITH 3 STEPS (NO HAND RAIL). HE REPORTS THAT HIS HOT WATER HEATER BROKE, SO HE HAS BEEN COMPLETING SPONGE BATHS ONLY. HE ALSO STATES THAT HIS TOILET DOES NOT WORK; POSSIBLE THAT HE DOES NOT HAVE RUNNING WATER. RADHA REPORTS GOING OUTSIDE TO USE THE BATHROOM. HE IS INDEPENDENT WITH ADLS AND DRIVING. Home Setup Standard Height Toilet Date 06/27/25 Feeding WFL Grooming WFL Bathing Impaired Comment MOD ASSIST Dressing Impaired Comment UB: SBA LB: MAX ASSIST Toileting Impaired Comment MIN ASSIST Bed Mobility Impaired Comment MOD ASSIST Functional Transfers Impaired Comment STAND-PIVOT T/F: MIN ASSIST Range of Motion WFL Comment BUE WFL Coordination BUE WFL Functional Strength BUE: WFL Functional Endurance FAIR(-): PATIENT'S ENDURANCE LIMITED DUE TO INCREASED RIGHT HIP PAIN Cognition ALERT AND ORIENTED X4 Pain 3/10 IN RIGHT HIP AT REST, 7/ 10 WITH MOVEMENT. HE DECLINED PAIN MEDICATION FROM RN AND ICE TO RIGHT HIP DUE TO BEING COLD. OT DID NOT PRESS EDUCATION DUE TO INCREASED AGITATION. Objective Data/Standardized Assessment(s CUEVA INDEX OF INDEPENDENCE ) WITH ADLS: 2/ INDICATING HIGH LEVEL OF DEPENDENCE FOR ADLS Comment INCISION INSEPCTED BY RN DUE TO PATIENT REMOVING PART OF BANDAGE LAST NIGHT; SHE REPLACED AQUACEL DRESSING BASED ON DR. POWERS'S RECOMMENDATION. HE IS OBSERVED WITH ANKLE INVERSION ON RIGHT SIDE IN WHICH HE REPORTS BASELINE WITH FAMILY HISTORY. OT Plan Of Care Date of Evaluation 06/27/25 Treatment Diagnosis RIGHT HIP REPLACEMENT S/P RIGHT SUBCAPITAL FEMUR FRACTURE Precaution/Orders as written WBAT; FALL RISK Teaching Recipient Patient Patient is Aware of Diagnosis and Yes Prognosis Patient is receptive to Plan of Care and Yes contributory towards OT goals Functional Problem List RADHA PRESENTS WITH INCREASED FALL RISK, DECREASED SAFETY INSIGHT, GENERERALIZED WEAKNESS, AND IMPAIRMENTS WITH ADLS DUE TO HIP PRECAUTIONS. Therapuetic Interventions SELF-CARE, THERAPEUTIC ACTIVITY, THERAPEUTIC EXERCISE , EDUCATION Functional Goals of Treatment 1) BY 07/03/25, RADHA WILL DEMONSTRATE INDEPENDENCE WITH USE OF A/E IN ORDER TO COMPLETE ADLS IN COMPLIANCE WITH HIP PRECAUTIONS. 2) BY 07/03/25, RADHA WILL COMPLETE BASIC ADLS AND FUNCTIONAL TRANSFERS WITH MOD INDEP AND COMPLIANCE TO HIP PRECAUTIONS. Frequency/Duration 5X/WEEK Rehabilitation Potential for Goals/ Good Barriers to Progress Discharge Recommendations/Plan OT RECOMMENDATIONS PENDING FURTHER PROGRESS WITH ADLS AND FUNCTIONAL TRANSFERS WITH GOAL OF RETURNING HOME; HOWEVER, DUE TO HIP PRECAUTIONS AND SAFETY OF HOME MAY REQUIRE PLACEMENT. Medical & Surgical History Past Medical History Yes Neurological History No Pertinent History ENT History Cataracts Endocrine History No Pertinent History Respiratory History No Pertinent History Cardiac History Hypertension GI History GERD History No Pertinent History Male Reproductive Disorders No Pertinent History Musculoskeletal History No Pertinent History Psycho-Social History No Pertinent History Past Surgical History Yes Hx Anesthesia Reactions No Hx Malignant Hyperthermia No Neurological Surgical History No Pertinent History ENT Surgical History Cataract Surgery Respiratory Surgical History No Pertinent History Cardiac Surgical History No Pertinent History Gastrointestinal Surgical History No Pertinent History Genitourinary Surgical History No Pertinent History Male Surgical History No Pertinent History Musculoskeletal Surgical History No Pertinent History Other Surgical History left cataract removed 2011, skin cancer Alcohol Daily Amount Used 10 beers a day Drug Use marijuana Frequency: RANDOMLY Hx Substance Use Treatment No Initialized on 06/27/25 10:49 - END OF NOTE Assessment/Plan (1) Subcapital fracture of right hip Current Visit: Yes Status: Acute Qualifiers: Encounter type: initial encounter Fracture type: closed Qualified Code(s): S72.011A - Unspecified intracapsular fracture of right femur, initial encounter for closed fracture Code(s): S72.011A - UNSP INTRACAPSULAR FRACTURE OF RIGHT FEMUR, INIT FOR CLOS FX (2) Right knee pain Current Visit: Yes Status: Acute Code(s): M25.561 - PAIN IN RIGHT KNEE (3) Fall (on) (from) other stairs and steps, initial encounter Current Visit: Yes Status: Acute Code(s): W10.9XXA - FALL (ON) (FROM) UNSPECIFIED STAIRS AND STEPS, INIT ENCNTR (4) Hyponatremia Current Visit: Yes Status: Acute Code(s): E87.1 - HYPO-OSMOLALITY AND HYPONATREMIA (5) HTN (hypertension) Current Visit: Yes Status: Acute Code(s): I10 - ESSENTIAL (PRIMARY) HYPERTENSION (6) Alcohol use Current Visit: No Status: Chronic Code(s): Z78.9 - OTHER SPECIFIED HEALTH STATUS (7) Marijuana dependence Current Visit: Yes Status: Chronic Code(s): F12.20 - CANNABIS DEPENDENCE, UNCOMPLICATED (8) Vitamin B12 deficiency Current Visit: Yes Status: Acute Code(s): E53.8 - DEFICIENCY OF OTHER SPECIFIED B GROUP VITAMINS (9) Yeast dermatitis Current Visit: Yes Status: Acute Code(s): B37.2 - CANDIDIASIS OF SKIN AND NAIL (10) Tachycardia Current Visit: Yes Status: Acute Code(s): R00.0 - TACHYCARDIA, UNSPECIFIED (11) Hypokalemia Current Visit: Yes Status: Acute Assessment & Plan: 1) Subcapital fracture of right hip Current Visit: Yes Status: Acute Qualifiers: Encounter type: initial encounter Fracture type: closed Qualified Code(s): S72.011A - Unspecified intracapsular fracture of right femur, initial encounter for closed fracture Assessment & Plan: - 2:2 fall down stairs - Right hip XR: AP pelvis and 2 view right hip demonstrates slightly impacted right subcapital femur fracture. Elsewhere osteopenia, mild lower lumbar degenerative spondylosis, and a few pelvic phleboliths - Ortho consult- surgery in AM - NPO at midnight - SCD's - IV narcotic pain medication 06/26 - To OR with ortho today - WBC 10.3 - CBC, CMP reviewed - Ortho started ASA 325mg daily, narcotic pain meds PRN 06/27 - POD #2 - WBC 9.1- improving - OT eval this AM - + confusion with restraints applied last night- resolved this AM and no restraints 06/28 - Repeat Right hip XR today - Ortho note pending - Increased pain today - WBC 9.7 - CBC, CMP today Code(s): S72.011A - UNSP INTRACAPSULAR FRACTURE OF RIGHT FEMUR, INIT FOR CLOS FX (2) Right knee pain Current Visit: Yes Status: Acute Assessment & Plan: - XR right knee pending - Pain and edema of right knee 06/26 - Reviewed Knee XR with ortho and per ortho non- concerning and likely congenital Code(s): M25.561 - PAIN IN RIGHT KNEE (3) Fall (on) (from) other stairs and steps, initial encounter Current Visit: Yes Status: Acute Assessment & Plan: - Fall/Slip on steps Sunday and unable to bear weight on right leg since - See plans above Code(s): W10.9XXA - FALL (ON) (FROM) UNSPECIFIED STAIRS AND STEPS, INIT ENCNTR (4) Hyponatremia Current Visit: Yes Status: Acute Assessment & Plan: - Na+ 129- trend - Likely 2:2 beer potomania - IV fluids stopped - Urine Na+ and urine osmo pending. - Consider 1L fluid restriction 06/26 - Na+ 126 - D5 NS at 100 ml /hr started - Urine Na+ 44 - Urine osmo pending 06/27 - Na+ 126 - Started D5NS with 20 KCL at 200ml/hr, will recheck Na+ and K+ in 6 hrs. 06/28 - IVF stopped - Na+ 127 - Q6 hr repeat labs - Fluid restriction - Per overnight nurse pt drank a large amount of fluids Code(s): E87.1 - HYPO-OSMOLALITY AND HYPONATREMIA (5) HTN (hypertension) Current Visit: Yes Status: Acute Assessment & Plan: - 2:2 pain? IV pain meds provided - Pt reports a hx of HTN but not currently taking meds for this. 06/26 - Bp stable Code(s): I10 - ESSENTIAL (PRIMARY) HYPERTENSION (6) Alcohol use Current Visit: No Status: Chronic Assessment & Plan: - Drinks 8-10 beers per day - Alcohol level in AM - CIWA protocol 06/27 - Placed in ICU bed closer to nurses station last night d/t confusion - AST trending up 90 - Hepatitis panel - Consider US liver Sunday - Alcohol level < 10 06/28 - AST 71- improving - US liver ordered for in AM - Hepatitis panel pending Code(s): Z78.9 - OTHER SPECIFIED HEALTH STATUS (7) Marijuana dependence Current Visit: Yes Status: Chronic Assessment & Plan: - Smokes monthly - Advised cessation Code(s): F12.20 - CANNABIS DEPENDENCE, UNCOMPLICATED (8) Vitamin B12 deficiency Current Visit: Yes Status: Acute Assessment & Plan: - Iron panel - B12 202- daily PO replacement started Code(s): E53.8 - DEFICIENCY OF OTHER SPECIFIED B GROUP VITAMINS (9) Yeast dermatitis Current Visit: Yes Status: Acute Assessment & Plan: - Nystatin cream to groin Code(s): B37.2 - CANDIDIASIS OF SKIN AND NAIL (10) Tachycardia Current Visit: Yes Status: Acute Assessment & Plan: - Metoprolol started BID 06/28 - improving Code(s): R00.0 - TACHYCARDIA, UNSPECIFIED (11) Hypokalemia Current Visit: Yes Status: Acute Assessment & Plan: - K+ 3.4 - K+ added to IVF - Will recheck in 6 hours 06/28 - resolved VTE: SCD's PPI: Protonix Next of KIN: Child- Ren Navarrete D/C plan: pending ortho recs Code status:Full Plan of care time: > 45 minutes Code(s): E87.6 - HYPOKALEMIA Code(s): E87.6 - HYPOKALEMIA
[2025-06-29 05:06] LABS: Hematocrit 27.7 % (40.1-51.0); Hemoglobin 9.7 g/dL (13.7-17.5); Mean Corpuscular Hemoglobin 32.8 pg (25.7-32.2); Mean Corpuscular Hgb Concent. 35.0 g/dL (32.3-36.5); Platelet Count 222 x10^3/uL (163-337); Red Blood Count 2.96 x10^6/uL (4.63-6.08); White Blood Count 9.4 x10^3/uL (4.23-9.07)
[2025-06-29 05:18] LABS: Calcium 8.1 mg/dL (8.4-10.2); Carbon Dioxide 23.0 mmol/L (22-30); Creatinine 1 0.54 mg/dL (0.66-1.25); EST GLOMERULAR FILTRATION RATE 112.7 ML/MIN; Glucose 117.0 mg/dL (74-106); Potassium 3.4 mmol/L (3.5-5.1); SGOT/AST 82.0 U/L (17-59); SGPT/ALT 33.0 U/L (0-50); Total Protein 6.1 g/dL (6.3-8.2)
--- NOTE | 2025-06-29 05:38 | PCM.NOTE ---
Date and Time: 06/29/25 0533 Subjective Assessment: Mr. Navarrete is a 64-year-old male with a past medical history of daily alcohol use (89 beers/day), hypertension, cataracts, GERD, and occasional marijuana use presented after falling down stairs onto concrete, resulting in inability to ambulate and right knee pain. Imaging of the pelvis and hip demonstrated a slightly impacted right subcapital femur fracture, with additional findings of osteopenia and mild lumbar degenerative changes. Right knee X-ray was reviewed with orthopedics and showed no acute fracture, likely congenital variation. He underwent surgical repair of the right hip with Dr. Powers. Postoperatively, he experienced transient confusion requiring restraints overnight, resolved by mica adams, and he has since been alert and oriented, participating well with occupational therapy. On admission, he was tachycardic with HR 108, later up to 120, managed initially with [facility] protocol for alcohol withdrawal and subsequently metoprolol BID when diazepam failed to control heart rate. He remains on telemetry. Blood pressure was elevated on arrival, likely secondary to pain, but improved with analgesia. Pain is currently well controlled with acetaminophen, as he is refusing narcotic medication. Laboratory evaluation revealed sodium 129 on arrival, persisting at 126 despite fluids; this was attributed to beer potomania. Management included stopping standard IV fluids and starting D5NS with potassium supplementation, with sodium and potassium trended every six hours. Potassium was 3.4 and replaced accordingly. WBC count improved from 10.3 to 9.1, and hemoglobin remains stable at 13.6. Vitamin B12 was found low at 202, and oral replacement has been initiated. A groin yeast infection was noted, and nystatin was prescribed though the patient has intermittently refused treatment. AST is elevated at 90, with hepatitis panel pending, and liver ultrasound under consideration. Olsen catheter remains in place, and he is on bed rest per orthopedics. 06/29/25: Patient seen at bedside. He reports persistent right hip pain, rating 7/10 on the numerical pain scale. Patient expresses eagerness for discharge and currently declines transfer to rehabilitation, though PT evaluation is planned for today. He remains on fluid restriction with oral salt supplementation for management of hyponatremia; most recent sodium is 126 mmol/L. Plan is to continue monitoring serum sodium closely. Patient also shares he is considering rehabilitation for alcohol use disorder, but currently feels he can quit independently without formal program enrollment. - Review of Systems Constitutional: No Symptoms Eyes: No Symptoms Ears, Nose, & Throat: No Symptoms Respiratory: No Symptoms Cardiac: No Symptoms Abdominal/Gastrointestinal: No Symptoms Genitourinary Symptoms: No Symptoms Musculoskeletal: Joint Pain (right hip) Skin: Other (Surgical incision to right hip with dressing CDI) Neurological: No Symptoms Psychological: No Symptoms Endocrine: No Symptoms Hematologic/Lymphatic: No Symptoms Immunological/Allergic: No Symptoms Objective Exam General Appearance: no apparent distress Neurologic Exam: alert, 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, cooperative Skin Exam: normal color Wound Assessment: Skin/Wound Assessment Wound/Incision Assessment Start: 06/26/25 10:36 Text: Status: Active Freq: Q6H Protocol: Document 06/29/25 04:00 KW (Rec: 06/29/25 04:42 KW [id number]) Wound/Incision Assessment LAT RT HIP Wound Assessment Shift Assessment Wound Type Incision Wound Stage Non Pressure Wound Dressing Status Dry & Intact Drainage Amount None General Appearance Clean/Dry Surrounding Tissue Edematous Primary Dressing Hydrocolloid Comment dressing clean/dry/intact Wound Photo Photo Taken No Eye Exam: PERRL Ears, Nose, Throat Exam: normal ENT inspection Neck Exam: normal inspection Respiratory Exam: normal breath sounds, lungs clear Cardiovascular Exam: regular rate/rhythm, normal heart sounds Gastrointestinal/Abdomen Exam: soft, normal bowel sounds Extremity Exam: swelling, other (Surgical incision to right hip with dressing CDI) Back Exam: normal inspection Male Genitalia Exam: deferred Rectal Exam: deferred Objective Data Vital Signs: Vital Signs - 24 hr Temp Pulse Resp BP Pulse Ox 06/28/25 23:36 97.9 F 99 H 16 153/80 98 06/28/25 20:00 99.0 F 69 18 153/80 94 L 06/28/25 16:00 100 H 16 151/96 98 06/28/25 15:04 81 16 06/28/25 12:00 81 16 166/97 97 06/28/25 08:00 97.8 F 109 H 16 171/89 99 Pain Assessment - Last Documented Pain Intensity [Right Hip] 0 Pain Intensity 4 Pain Scale Used 0-10 Pain Scale Intake and Output: Intake & Output 06/26/25 06/27/25 06/28/25 06/29/25 11:59 11:59 11:59 11:59 Intake Total 900 1300 4491 860 Output Total 1840 2450 2825 2025 Balance -550 -1150 1666 -1165 Weight 97.2 kg 97.2 kg Lab Results: Lab Results-Last 24 Hours 06/25/25 06/28/25 06/28/25 Range/Units 15:15 05:34 05:34 WBC 9.7 H (4.23-9.07) x10^3/uL RBC 2.87 L (4.63-6.08) x10^6/uL Hgb 9.3 L (13.7-17.5) g/dL Hct 27.6 L (40.1-51.0) % MCV 96.2 H (79.0-92.2) fL MCH 32.4 H (25.7-32.2) pg MCHC 33.7 (32.3-36.5) g/dL RDW 12.4 (11.6-14.4) % Plt Count 172 (163-337) x10^3/uL MPV 9.6 (9.4-12.4) fL Sodium 127 L (135-145) mmol/L Potassium 3.6 (3.5-5.1) mmol/L Chloride 101 (98-107) mmol/L Carbon Dioxide 22 (22-30) mmol/L Anion Gap 7.6 (5-15) MEQ/L BUN 6 L (9-20) mg/dL Creatinine 0.53 L (0.66-1.25) mg/dL Estimated GFR 113.3 ML/MIN Glucose 152 H (74-106) mg/dL Calcium 7.5 L (8.4-10.2) mg/dL Magnesium 2.0 (1.6-2.3) mg/dL Total Bilirubin 0.50 (0.2-1.3) mg/dL AST 71 H (17-59) U/L ALT 27 (0-50) U/L Alkaline Phosphatase 57 (38-126) U/L Serum Total Protein 5.6 L (6.3-8.2) g/dL Albumin 2.7 L (3.5-5.0) g/dL Urine Osmolality 274 (.) mOsmol/kg 06/28/25 06/28/25 06/29/25 Range/Units 12:05 18:32 04:53 WBC 9.4 H (4.23-9.07) x10^3/uL RBC 2.96 L (4.63-6.08) x10^6/uL Hgb 9.7 L (13.7-17.5) g/dL Hct 27.7 L (40.1-51.0) % MCV 93.6 H (79.0-92.2) fL MCH 32.8 H (25.7-32.2) pg MCHC 35.0 (32.3-36.5) g/dL RDW 12.4 (11.6-14.4) % Plt Count 222 (163-337) x10^3/uL MPV 9.7 (9.4-12.4) fL Sodium 130 L 128 L (135-145) mmol/L Potassium (3.5-5.1) mmol/L Chloride (98-107) mmol/L Carbon Dioxide (22-30) mmol/L Anion Gap (5-15) MEQ/L BUN (9-20) mg/dL Creatinine (0.66-1.25) mg/dL Estimated GFR ML/MIN Glucose (74-106) mg/dL Calcium (8.4-10.2) mg/dL Magnesium (1.6-2.3) mg/dL Total Bilirubin (0.2-1.3) mg/dL AST (17-59) U/L ALT (0-50) U/L Alkaline Phosphatase (38-126) U/L Serum Total Protein (6.3-8.2) g/dL Albumin (3.5-5.0) g/dL Urine Osmolality (.) mOsmol/kg 06/29/25 Range/Units 04:53 WBC (4.23-9.07) x10^3/uL RBC (4.63-6.08) x10^6/uL Hgb (13.7-17.5) g/dL Hct (40.1-51.0) % MCV (79.0-92.2) fL MCH (25.7-32.2) pg MCHC (32.3-36.5) g/dL RDW (11.6-14.4) % Plt Count (163-337) x10^3/uL MPV (9.4-12.4) fL Sodium 126 L (135-145) mmol/L Potassium 3.4 L (3.5-5.1) mmol/L Chloride 96 L (98-107) mmol/L Carbon Dioxide 23 (22-30) mmol/L Anion Gap 10.3 (5-15) MEQ/L BUN 6 L (9-20) mg/dL Creatinine 0.54 L (0.66-1.25) mg/dL Estimated GFR 112.7 ML/MIN Glucose 117 H (74-106) mg/dL Calcium 8.1 L (8.4-10.2) mg/dL Magnesium (1.6-2.3) mg/dL Total Bilirubin 0.50 (0.2-1.3) mg/dL AST 82 H (17-59) U/L ALT 33 (0-50) U/L Alkaline Phosphatase 69 (38-126) U/L Serum Total Protein 6.1 L (6.3-8.2) g/dL Albumin 3.1 L (3.5-5.0) g/dL Urine Osmolality (.) mOsmol/kg Radiology Exams: Radiology Procedures Category Date Time Status HIP UNI (2V) INCL PEL IF DONE Routine Exams 06/28/25 08:09 Completed US ABDOMEN LIMITED [ABDOMINAL-LIMITED] [US] Routine Exams 06/29/25 08:00 Ordered Medications: Medications Generic Name Dose Route Start Last Admin Trade Name Freq PRN Reason Stop Dose Admin Acetaminophen 650 mg 06/27/25 10:22 06/27/25 10:52 Acetaminophen 325 Mg Tablet PO 07/27/25 10:21 650 mg Q6H PRN PRN Administration PAIN AND/OR FEVER Hydrocodone Bitart/Acetaminophen 1 tab 06/27/25 14:00 06/28/25 21:32 Hydrocodone/Apap 5/325 1 Tab Tablet PO 07/02/25 13:59 1 tab Q4H PRN PRN Administration PAIN 5-7 Aspirin 325 mg 06/26/25 15:00 06/28/25 08:22 Aspirin 325 Mg Tablet.Ec PO 07/25/25 10:01 325 mg DAILY DOYLE Administration Calcium Carbonate/Glycine 750 mg 06/28/25 10:00 06/28/25 21:32 Calcium Carbonate 750 Mg 750 Mg Tab.Chew PO 07/28/25 09:59 750 mg BID DOYLE Administration Cyanocobalamin 1,000 mcg 06/26/25 10:00 06/28/25 08:23 Cyanocobalamin 500 Mcg Tablet PO 07/26/25 09:59 1,000 mcg DAILY DOYLE Administration Diazepam 0 mg 06/26/25 16:10 06/28/25 15:04 Diazepam 10 Mg/2 Ml Disp.Syringe IV 07/26/25 16:09 2.5 mg Q2H PRN PRN Administration CIWA SCORE Protocol Folic Acid 1 mg 06/26/25 10:00 06/28/25 08:22 Folic Acid 1 Mg Tablet PO 07/26/25 09:59 1 mg DAILY DOYLE Administration Melatonin 3 mg 06/25/25 23:07 06/28/25 21:31 Melatonin 3 Mg Tablet PO 07/25/25 23:06 3 mg HS PRN PRN Administration INSOMNIA Metoprolol Tartrate 25 mg 06/27/25 11:00 06/28/25 21:31 Metoprolol Tartrate 25 Mg Tab PO 07/27/25 10:59 25 mg BID DOYLE Administration Multivitamins Therapeutic 1 tab 06/26/25 10:00 06/28/25 08:22 Multivitamins,Therapeutic 1 Tab Tab PO 07/26/25 09:59 1 tab QAM DOLYE Administration Naloxone HCl 0.4 mg 06/25/25 17:47 Naloxone Hcl 0.4 Mg/Ml Ml IV 07/25/25 17:46 PRN PRN RESPIRATORY DEPRESSION Nystatin 0 gm 06/26/25 11:00 06/28/25 21:32 Nystatin 15 Gm Powder TP 07/26/25 10:59 15 gm BID DOYLE Administration Ondansetron HCl 4 mg 06/27/25 14:00 Ondansetron Hcl 4 Mg/2 Ml Vial IV 07/27/25 13:59 Q6H PRN PRN N/V Pantoprazole Sodium 20 mg 06/26/25 10:00 06/28/25 08:23 Pantoprazole 20 Mg Tab PO 07/26/25 09:59 20 mg DAILY DOYLE Administration Thiamine HCl 100 mg 06/26/25 10:00 06/28/25 08:23 Thiamine Hcl 100 Mg Tablet PO 07/26/25 09:59 100 mg DAILY DOYLE Administration Discontinued Medications Generic Name Dose Route Start Last Admin Trade Name Freq PRN Reason Stop Dose Admin Dexmedetomidine/Sodium Chloride Confirm 06/26/25 09:22 Dexmedetomidine In 0.9 % Nacl 80 Mcg/20 Ml Vial Administered 06/26/25 09:23 Dose 80 mcg IV .STK-MED ONE Diazepam 0 mg 06/25/25 17:44 Diazepam 5 Mg Tablet PO 07/25/25 17:43 Q2H PRN PRN CIWA SCORE Protocol Diazepam 0 mg 06/26/25 14:48 06/26/25 15:07 Diazepam 5 Mg Tablet PO 07/26/25 14:47 2.5 mg Q2H PRN PRN Administration CIWA SCORE Protocol Diphenhydramine HCl 12.5 - 25 mg 06/26/25 14:30 06/26/25 20:39 Diphenhydramine Hcl 50 Mg/Ml Vial IV 06/27/25 14:29 25 mg Q6H PRN PRN Administration FOR INTOLERABLE ITCHING Ephedrine Sulfate Confirm 06/26/25 11:31 Ephedrine Sulfate 50 Mg/Ml Administered 06/26/25 11:32 Dose 50 mg .ROUTE .STK-MED ONE Famotidine 20 mg 06/26/25 09:30 06/26/25 09:45 Famotidine 20 Mg/1 Vial IV 06/26/25 20:00 20 mg 1HRPRIOR DOYLE Administration Fentanyl Citrate Confirm 06/26/25 09:22 Fentanyl Citrate 100 Mcg/2 Ml* Vial Administered 06/26/25 09:23 Dose 100 mcg .ROUTE .STK-MED ONE Hydromorphone HCl 0.5 mg 06/25/25 14:01 06/25/25 14:15 Hydromorphone 1 Mg/1ml Inj IV 06/25/25 14:02 0.5 mg STAT ONE Administration Hydromorphone HCl Confirm 06/25/25 14:09 Hydromorphone 1 Mg/1ml Inj Administered 06/25/25 14:10 Dose 1 mg .ROUTE .STK-MED ONE Hydromorphone HCl 0.5 mg 06/25/25 14:55 06/25/25 15:07 Hydromorphone 1 Mg/1ml Inj IV 06/25/25 14:56 0.5 mg STAT ONE Administration Hydromorphone HCl Confirm 06/25/25 15:03 Hydromorphone 1 Mg/1ml Inj Administered 06/25/25 15:04 Dose 1 mg .ROUTE .STK-MED ONE Hydromorphone HCl 1 mg 06/25/25 17:46 06/26/25 03:35 Hydromorphone 1 Mg/1ml Inj IV 06/30/25 17:45 1 mg Q4H PRN PRN Administration PAIN Hydromorphone HCl 1 mg 06/27/25 14:00 06/28/25 12:22 Hydromorphone 1 Mg/1ml Inj IV 06/29/25 02:00 1 mg Q2H PRN PRN Administration PAIN 8-10 Sodium Chloride 1,000 mls @ 999 mls/hr 06/25/25 14:01 06/25/25 15:20 Sodium Chloride 0.9% 1000 Ml IV 06/25/25 15:01 Infused .Q1H1M STA Infusion Sodium Chloride Confirm 06/25/25 14:10 Sodium Chloride 0.9% 1000 Ml Administered 06/25/25 14:11 Dose 1,000 mls @ ud .ROUTE .STK-MED ONE Sodium Chloride 1,000 mls @ 100 mls/hr 06/25/25 17:23 06/25/25 20:13 Sodium Chloride 0.9% 1000 Ml IV 07/25/25 17:22 Not Given .Q10H DOYLE Cefazolin Sodium 2 gm/ Sodium 100 mls @ 200 mls/hr 06/26/25 10:00 06/26/25 15:22 Chloride IV 06/26/25 10:29 Not Given ONCALLTOOR ONE TRANEXAMIC ACID IN NACL,ISO-OS 1,000 mg in 100 mls @ 600 mls/hr 06/25/25 17:47 06/25/25 20:13 Tranexamic 1,000 Mg/100ml-Nacl IV 06/25/25 17:56 Not Given ONCE ONE TRANEXAMIC ACID IN NACL,ISO-OS 1,000 mg in 100 mls @ 600 mls/hr 06/26/25 08:00 Tranexamic 1,000 Mg/100ml-Nacl IV 06/26/25 23:00 ONCALLTOOR DOYLE Dextrose/Sodium Chloride 1,000 mls @ 100 mls/hr 06/26/25 08:00 Dextrose 5%-Ns Iv Solution 1000 Ml IV 07/26/25 07:59 .Q10H DOYLE Sodium Chloride 1,000 mls @ 30 mls/hr 06/26/25 09:30 06/26/25 09:47 Sodium Chloride 0.9% 1000 Ml IV 06/27/25 18:49 30 mls/hr .Q24H DOYLE Administration Sodium Chloride Confirm 06/26/25 11:53 Sodium Chloride 0.9% 1000 Ml Administered 06/26/25 11:54 Dose 1,000 mls @ ud .ROUTE .STK-MED ONE Phenylephrine HCl 10 mg/ 250 mls @ 90 mls/hr 06/26/25 11:57 Dextrose IV 07/26/25 11:56 .Q2H47M PRN HYPOTENSION Protocol 60 MCG/MIN Sodium Chloride 1,000 mls @ 100 mls/hr 06/26/25 14:45 06/27/25 10:16 Sodium Chloride 0.9% 1000 Ml IV 06/26/25 23:30 Not Given .Q10H DOYLE Cefazolin Sodium 2 gm/ Sodium 100 mls @ 200 mls/hr 06/26/25 15:00 06/26/25 23:25 Chloride IV 06/26/25 23:29 200 mls/hr Q8H DOYLE Administration Potassium Chloride/Dextrose/Sod Cl 1,000 mls @ 200 mls/hr 06/27/25 08:30 06/28/25 11:27 Dextrose 5% -Nacl 0.9% 1000 Ml + Kcl 20 Meq IV 07/27/25 08:29 Not Given .Q5H DOYLE Loratadine 10 mg 06/26/25 14:30 Loratadine 10 Mg Tablet PO 06/27/25 14:29 QDP PRN ITCHING Lorazepam 1 mg 06/25/25 14:56 06/25/25 15:06 Lorazepam 2 Mg/1 Ml 2 Mg Vial IV 06/25/25 14:57 1 mg STAT ONE Administration Lorazepam 1 mg 06/26/25 09:20 06/26/25 09:46 Lorazepam 2 Mg/1 Ml 2 Mg Vial IV 06/26/25 09:21 1 mg STAT ONE Administration Lorazepam 1 mg 06/26/25 13:26 06/26/25 15:21 Lorazepam 2 Mg/1 Ml 2 Mg Vial IV 06/26/25 13:27 Not Given STAT ONE Lorazepam 20 mg 06/26/25 13:36 Lorazepam 20 Mg/10 Ml Mdv .ROUTE 06/26/25 13:37 .STK-MED ONE Metoclopramide HCl 10 mg 06/26/25 09:30 06/26/25 09:45 Metoclopramide Hcl 10 Mg/2 Ml Vial IV 06/26/25 20:00 10 mg 1HRPRIOR DOYLE Administration Midazolam HCl Confirm 06/26/25 09:22 Midazolam Hcl 2 Mg/2 Ml Vial Administered 06/26/25 09:23 Dose 2 mg .ROUTE .STK-MED ONE Midazolam HCl Confirm 06/26/25 13:08 Midazolam Hcl 2 Mg/2 Ml Vial Administered 06/26/25 13:09 Dose 2 mg .ROUTE .STK-MED ONE Morphine Sulfate Confirm 06/26/25 09:26 Morphine Sulfate 5 Mg/10 Ml Pf Ampul Administered 06/26/25 09:27 Dose 5 mg .ROUTE .STK-MED ONE Morphine Sulfate 2 mg 06/26/25 14:30 Morphine Sulfate 2 Mg/Ml Inj IV 06/27/25 14:29 .Q30MIN PRN PRN BREAKTHROUGH ,SEVERE PAIN Nalbuphine HCl 5 mg 06/26/25 14:30 Nalbuphine Hcl 10 Mg/Ml Ampul IV 06/27/25 14:29 Q6H PRN PRN FOR INTOLERABLE ITCHING Naloxone HCl 0.1 mg 06/26/25 14:30 Naloxone Hcl 0.4 Mg/Ml Ml IV 06/27/25 14:29 PRN PRN Non-Formulary Medication 20 mg 06/26/25 10:00 Omeprazole 20 Mg [Prilosec 20 Mg] PO 07/26/25 09:59 DAILY [facility] Non-Formulary Medication 1 each 06/27/25 10:00 06/27/25 10:17 Hold Narcotic Analgesics/Sedatives 1 Each Each 06/27/25 10:01 Not Given DAILY DOYLE Ondansetron HCl 4 mg 06/25/25 14:01 06/25/25 14:12 Ondansetron Hcl 4 Mg/2 Ml Vial IV 06/25/25 14:02 4 mg STAT ONE Administration Ondansetron HCl Confirm 06/25/25 14:09 Ondansetron Hcl 4 Mg/2 Ml Vial Administered 06/25/25 14:10 Dose 4 mg .ROUTE .STK-MED ONE Ondansetron HCl 4 mg 06/26/25 14:30 Ondansetron Hcl 4 Mg/2 Ml Vial IV 06/27/25 14:29 PRN PRN NAUSEA Oxycodone/Acetaminophen 1 - 2 tab 06/26/25 14:30 Oxycodone Hcl/Apap 5 Mg/325 Mg Tablet PO 06/27/25 14:29 Q4H PRN PRN MODERATE PAIN Phenylephrine HCl Confirm 06/26/25 11:01 Phenylephrine 10 Mg/Ml Vial Administered 06/26/25 11:02 Dose 10 mg .ROUTE .STK-MED ONE Potassium Chloride 20 meq 06/27/25 08:00 06/27/25 18:23 Potassium Chloride Tab 10 Meq Tab PO 06/27/25 14:01 20 meq Q2H DOYLE Administration Potassium Chloride Confirm 06/27/25 18:22 Potassium Chloride Tab 10 Meq Tab Administered 06/27/25 18:23 Dose 20 meq .ROUTE .STK-MED ONE Propofol Confirm 06/26/25 10:32 Propofol 200 Mg/20 Ml Vial Administered 06/26/25 10:33 Dose 200 mg IV .STK-MED ONE Propofol Confirm 06/26/25 11:57 Propofol 200 Mg/20 Ml Vial Administered 06/26/25 11:58 Dose 200 mg IV .STK-MED ONE Sodium Chloride 10 ml 06/26/25 14:30 Normal Saline 10 Ml Flush IJ 06/27/25 14:29 PRN PRN MAINTAIN IV/SALINE LOCK Assessment/Plan (1) Subcapital fracture of right hip Current Visit: Yes Status: Acute Qualifiers: Encounter type: initial encounter Fracture type: closed Qualified Code(s): S72.011A - Unspecified intracapsular fracture of right femur, initial encounter for closed fracture Assessment & Plan: -Pelvis/hip X-ray: slightly impacted right subcapital femur fracture with osteopenia -Ortho consulted; underwent surgical repair, now POD #4 -Post-op confusion resolved; restraints discontinued -Pain control: initially IV narcotics, now acetaminophen per patient preference -ASA 325 mg daily started by ortho; SCDs in use for DVT prophylaxis -Olsen catheter discontinued -PT to evaluate today -Repeat right hip xray 06/28 showing intact right hip implant with no evidence of displacement or loosening. No significant interval changes. Code(s): S72.011A - UNSP INTRACAPSULAR FRACTURE OF RIGHT FEMUR, INIT FOR CLOS FX (2) Fall (on) (from) other stairs and steps, initial encounter Current Visit: Yes Status: Acute Assessment & Plan: -Mechanical fall onto concrete with resultant hip fracture and knee pain -Maintain fall precautions and supportive care Code(s): W10.9XXA - FALL (ON) (FROM) UNSPECIFIED STAIRS AND STEPS, INIT ENCNTR (3) HTN (hypertension) Current Visit: Yes Status: Acute Assessment & Plan: -BP 157/86 on arrival, likely pain-related -Improved with pain management; not on chronic antihypertensives -Continue monitoring inpatient Code(s): I10 - ESSENTIAL (PRIMARY) HYPERTENSION (4) Hypokalemia Current Visit: Yes Status: Acute Assessment & Plan: -K+ 3.4 -Replenish per potassium protocol -BMP trended q6h, further replacement PRN Code(s): E87.6 - HYPOKALEMIA (5) Hyponatremia Current Visit: Yes Status: Acute Assessment & Plan: -Na 129 on admission, persistent despite fluid challenge -currently at 126 -Likely 2/2 to beer potomania -IVF stopped- Fluid restriction initiated 06/28/25 -Urine Na 44; urine osmolality WNL -Add sodium chloride tabs 1000mg TID -Sodium and potassium trended q6h Code(s): E87.1 - HYPO-OSMOLALITY AND HYPONATREMIA (6) Right knee pain Current Visit: Yes Status: Acute Assessment & Plan: -Reported pain and edema following fall -X-ray reviewed with ortho: non-concerning, likely congenital variation -Managed with supportive care and acetaminophen Code(s): M25.561 - PAIN IN RIGHT KNEE (7) Tachycardia Current Visit: Yes Status: Acute Assessment & Plan: -HR [id number]; initially managed with CIWA protocol -Diazepam ineffective, started metoprolol BID with good rate control -Continue telemetry Code(s): R00.0 - TACHYCARDIA, UNSPECIFIED (8) Vitamin B12 deficiency Current Visit: Yes Status: Acute Assessment & Plan: -B12 202 on labs -Daily oral replacement initiated -Iron panel with saturation at 31% -Continue to monitor CBC Code(s): E53.8 - DEFICIENCY OF OTHER SPECIFIED B GROUP VITAMINS (9) Yeast dermatitis Current Visit: Yes Status: Acute Assessment & Plan: -Groin yeast infection identified -Nystatin cream prescribed; patient intermittently refusing -Encourage compliance and monitor for progression Code(s): B37.2 - CANDIDIASIS OF SKIN AND NAIL (10) Marijuana dependence Current Visit: Yes Status: Chronic Assessment & Plan: -Monthly use reported -Counseling provided; advised cessation Code(s): F12.20 - CANNABIS DEPENDENCE, UNCOMPLICATED (11) Alcohol use Current Visit: No Status: Chronic Assessment & Plan: -Daily 89 beers; last intake evening prior to admission -Managed on CIWA protocol; Valium administered as indicated - last dose 06/28 -Transferred to ICU-adjacent bed after confusion episode which has resolved- can down grade to med surg bed -AST 90-71- 81, hepatitis panel pending, liver ultrasound obtained and pending -Started on thiamine, folate, and multivitamin supplementation -Ongoing counseling for cessation - patient thinking about rehab VTE: SCD's/325mg daily aspirin per ortho PPI: Protonix Next of KIN: Child- Ren Navarrete D/C plan: pending ortho recs Code status:Full Plan of care time: > 40 minutes Code(s): Z78.9 - OTHER SPECIFIED HEALTH STATUS
[2025-06-29] MEDS: Klor Con PO SCH (09:35)
--- NOTE | 2025-06-29 09:37 | CONS ---
HISTORY: The patient was seen and examined. His chart was reviewed. The patient is a 64-year-old male who presented to the emergency room yesterday afternoon with pain in his right hip and right knee. He states that he went outside on his back steps to urinate on Sunday, fell, and landed on his right hip. He has been sitting in a chair at home until he presented to the emergency room yesterday with pain in the hip and the knee. He was subsequently admitted to the hospitalist and Orthopedic consultation was requested as the patient had a subcapital fracture of the hip. PAST MEDICAL HISTORY: Patient has a significant medical history for subcapital fracture of the right hip, hypertension, alcoholism, marijuana dependence. PAST SURGICAL HISTORY: Positive for repair of a scalp laceration. REVIEW OF SYSTEMS: He is about 6 feet tall and he weighs 220 pounds. His BMI is 28. LAB DATA AND TESTS: Hemoglobin is stable at 13 with hematocrit of 38.2. X-rays of the pelvis and hip show a displaced subcapital fracture of the right hip. X-rays of the right knee also dated 06/25/2025 shows that the patient has a bipartite patella. He also has some calcification in the distal quadriceps tendon. There is a mild effusion. PHYSICAL EXAMINATION: EXTREMITIES: On Orthopedic evaluation, patient does have a shortened, externally rotated right lower extremity. There is tenderness to palpation over the right hip with motion of the hip. He does have a mild effusion in his knee. Quad and patellar tendon are intact. There is no varus or valgus instability. Yovany and drawer appear to be negative. Range of motion is difficult to assess due to the patient's acute hip fracture. Pulse are +2/4 at the dorsalis pedis and posterior tibial. IMPRESSION: 1) Subcapital fracture right hip. 2) Contusion right knee. RECOMMENDATIONS AND PLAN: Patient needs to be taken to the operative suite for a bipolar blanca-replacement arthroplasty of the right hip. Once the hip is fixed, a better assessment of the knee will be undertaken. The inherent risks, benefits, complications, and alternatives to the proposed course of treatment were discussed with the patient and informed consent was given and signed. He will be taken to the operative suite today.
[2025-06-29] MEDS ORDERED: SODIUM CHLORIDE PO SCH (10:00)
--- NOTE | 2025-06-29 10:59 | OP ---
SURGERY DATE/TIME: 06/26/2025 [id number] PREOPERATIVE DIAGNOSIS: Subcapital fracture of the right hip. POSTOPERATIVE DIAGNOSIS: Subcapital fracture of the right hip. PROCEDURE: Bipolar blanca-replacement arthroplasty, right hip, utilizing the Francy Bi[employer] Echo stem size 11 x 140, lateralized, cemented, a 54 bipolar cup with a 28 head and +3 neck. SURGEON: Chris Powers II, DO ANESTHESIA: Spinal with block for postoperative pain control. DESCRIPTION OF PROCEDURE AND FINDINGS: The patient was identified and informed consent was obtained. The patient was taken to the operating suite where the spinal anesthetic was administered, and once an appropriate level of anesthesia had been obtained, the patient was then placed into the left lateral decubitus position on the peg board. Axillary roll was placed. Bony prominences were padded. The patient was appropriately positioned, and the right lower extremity was then prepped and draped in the usual sterile fashion. A standard time-out was taken. Following this, a standard posterior incision was accomplished. Skin was incised. Dissection was carried out through the subcutaneous tissue. The tensor fascia giacomo was split for a distance of about 1.5 to 2 inches, and then the gluteus was split in line with the fibers. At this point, a Charnley retractor was positioned, and a cobra retractor was placed under the gluteus medius and minimus. The piriformis was then tagged and released. The short external rotators were released. It should be noted the sciatic nerve was palpated deep within the wound well out of harm's way. At this point, the capsule was opened. It did have a rent in the capsule prior to opening. The capsule was then opened in a T-type fashion, and at this point then, the corkscrew was then placed into the head and was removed in toto. The neck cut was then freshened leaving 1 fingerbreadth of the gleason operator's finger proximal to the calcar. At this point then, the box chisel was utilized to open the calcar region, the Charnley T-handle reamer to open the canal and then conical reaming to a size 13 with broaching to a size 13. At this point, trial reduction showed that the lateralized stem with a +3 neck gave excellent stability in all planes of motion with flexion greater than 95 degrees and internal rotation to greater than 85 degrees. The patient's leg lengths were noted to be equal. At this point, the trial instrumentation was removed. The acetabulum was further cleaned of any remaining debris. The canal was brushed and irrigated, the cement restrictor placed. The canal sponge was then placed while the cement was being vacuum mixed, and it should be noted that a cement restrictor had been placed as well. The stem was then inserted after injecting the cement into the interstices of the bone with a cement guide. The stem was impacted into position with 10 degrees of anteversion and held in this position until the cement had cured. All excess cement was removed during the curing process. At this point, the +3 neck with a 28 head and a 54 bipolar was then impacted onto the trunnion. The hip was reduced and again placed through a range of motion and noted to have excellent stability in all planes of motion including flexion to greater than 90 degrees with internal rotation to about 85 degrees. At this point, the leg lengths were rechecked and noted to be equal. The wound was then copiously irrigated. The short external rotators and piriformis were repaired to the greater trochanter through drill holes. The tensor and gluteus were repaired with #2 Stratafix, 2-0 Monocryl for subcutaneous tissue, 3-0 Stratafix augmented with Dermabond for skin. An Aquacel dressing was applied. The patient was transferred to the bed and taken to recovery room in satisfactory condition having tolerated the procedure well.
[2025-06-29] MEDS: SODIUM CHLORIDE PO SCH (11:40)
--- NOTE | 2025-06-29 14:00 | XRAY ---
Indication: Ascites. 4 quadrant abdominal sonogram demonstrates tiny sliver perihepatic fluid in right upper quadrant. No other ascites.
[2025-06-29 17:07] LABS: Calcium 8.6 mg/dL (8.4-10.2); Carbon Dioxide 24.0 mmol/L (22-30); Creatinine 1 0.64 mg/dL (0.66-1.25); EST GLOMERULAR FILTRATION RATE 107.0 ML/MIN; Glucose 119.0 mg/dL (74-106); Potassium 3.7 mmol/L (3.5-5.1)
[2025-06-29] MEDS: Cyclobenzaprine 10 MG PO SCH (18:51)
[2025-06-29 20:36] LABS: Calcium 8.5 mg/dL (8.4-10.2); Carbon Dioxide 25.0 mmol/L (22-30); Creatinine 1 0.64 mg/dL (0.66-1.25); EST GLOMERULAR FILTRATION RATE 107.0 ML/MIN; Glucose 118.0 mg/dL (74-106); Potassium 3.7 mmol/L (3.5-5.1)
[2025-06-29 23:46] VITALS: RESP 16
[2025-06-30 01:34] LABS: Calcium 8.4 mg/dL (8.4-10.2); Carbon Dioxide 22.0 mmol/L (22-30); Creatinine 1 0.63 mg/dL (0.66-1.25); EST GLOMERULAR FILTRATION RATE 107.6 ML/MIN; Glucose 106.0 mg/dL (74-106); Potassium 3.9 mmol/L (3.5-5.1)
--- NOTE | 2025-06-30 05:26 | PCM.NOTE ---
Date and Time: 06/30/25 0525 Subjective Assessment: Mr. Navarrete is a 64-year-old male with a past medical history of daily alcohol use (89 beers/day), hypertension, cataracts, GERD, and occasional marijuana use presented after falling down stairs onto concrete, resulting in inability to ambulate and right knee pain. Imaging of the pelvis and hip demonstrated a slightly impacted right subcapital femur fracture, with additional findings of osteopenia and mild lumbar degenerative changes. Right knee X-ray was reviewed with orthopedics and showed no acute fracture, likely congenital variation. He underwent surgical repair of the right hip with Dr. Powers. Postoperatively, he experienced transient confusion requiring restraints overnight, resolved by mica adams, and he has since been alert and oriented, participating well with occupational therapy. On admission, he was tachycardic with HR 108, later up to 120, managed initially with [facility] protocol for alcohol withdrawal and subsequently metoprolol BID when diazepam failed to control heart rate. He remains on telemetry. Blood pressure was elevated on arrival, likely secondary to pain, but improved with analgesia. Pain is currently well controlled with acetaminophen, as he is refusing narcotic medication. Laboratory evaluation revealed sodium 129 on arrival, persisting at 126 despite fluids; this was attributed to beer potomania. Management included stopping standard IV fluids and starting D5NS with potassium supplementation, with sodium and potassium trended every six hours. Potassium was 3.4 and replaced accordingly. WBC count improved from 10.3 to 9.1, and hemoglobin remains stable at 13.6. Vitamin B12 was found low at 202, and oral replacement has been initiated. A groin yeast infection was noted, and nystatin was prescribed though the patient has intermittently refused treatment. AST is elevated at 90, with hepatitis panel pending, and liver ultrasound under consideration. Olsen catheter remains in place, and he is on bed rest per orthopedics. 06/29/25: Patient seen at bedside. He reports persistent right hip pain, rating 7/10 on the numerical pain scale. Patient expresses eagerness for discharge and currently declines transfer to rehabilitation, though PT evaluation is planned for today. He remains on fluid restriction with oral salt supplementation for management of hyponatremia; most recent sodium is 126 mmol/L. Plan is to continue monitoring serum sodium closely. Patient also shares he is considering rehabilitation for alcohol use disorder, but currently feels he can quit independently without formal program enrollment. Objective Exam Wound Assessment: Skin/Wound Assessment Wound/Incision Assessment Start: 06/26/25 10:36 Text: Status: Active Freq: Q6H Protocol: Document 06/30/25 04:34 RB (Rec: 06/30/25 04:34 RB [id number]) Wound/Incision Assessment LAT RT HIP Wound Assessment Shift Assessment Wound Type Incision Wound Stage Non Pressure Wound Dressing Status Dry & Intact Drainage Amount None General Appearance Clean/Dry Surrounding Tissue Edematous Primary Dressing Hydrocolloid Comment mild shadowing/remains true Wound Photo Photo Taken No Objective Data Vital Signs: Vital Signs - 24 hr Temp Pulse Resp BP Pulse Ox 06/29/25 23:00 98.6 F 96 H 16 123/82 94 L 06/29/25 19:00 97.1 F 122 H 17 132/62 99 06/29/25 15:00 98.4 F 109 H 22 131/79 98 06/29/25 11:00 97.8 F 90 22 117/73 98 06/29/25 07:00 98.3 F 106 H 22 155/97 97 Pain Assessment - Last Documented Pain Intensity [Right Hip] 0 Pain Intensity 0 Pain Scale Used 0-10 Pain Scale Intake and Output: Intake & Output 06/27/25 06/28/25 06/29/25 06/30/25 11:59 11:59 11:59 11:59 Intake Total 1300 4491 860 1200 Output Total 2450 2825 2925 1250 Balance -1150 1666 -2065 -50 Weight 97.2 kg Lab Results: Lab Results-Last 24 Hours 06/29/25 06/29/25 06/29/25 Range/Units 04:53 12:07 16:10 Sodium (135-145) mmol/L Potassium 3.8 3.6 (3.5-5.1) mmol/L Chloride (98-107) mmol/L Carbon Dioxide (22-30) mmol/L Anion Gap (5-15) MEQ/L BUN (9-20) mg/dL Creatinine (0.66-1.25) mg/dL Estimated GFR ML/MIN Glucose (74-106) mg/dL Calcium (8.4-10.2) mg/dL Magnesium 1.9 (1.6-2.3) mg/dL 06/29/25 06/29/25 06/30/25 Range/Units 16:30 20:17 01:10 Sodium 127 L 128 L 126 L (135-145) mmol/L Potassium 3.7 3.7 3.9 (3.5-5.1) mmol/L Chloride 97 L 98 97 L (98-107) mmol/L Carbon Dioxide 24 25 22 (22-30) mmol/L Anion Gap 10.0 9.1 11.3 (5-15) MEQ/L BUN 7 L 8 L 8 L (9-20) mg/dL Creatinine 0.64 L 0.64 L 0.63 L (0.66-1.25) mg/dL Estimated GFR 107.0 107.0 107.6 ML/MIN Glucose 119 H 118 H 106 (74-106) mg/dL Calcium 8.6 8.5 8.4 (8.4-10.2) mg/dL Magnesium (1.6-2.3) mg/dL Radiology Exams: Radiology Procedures Category Date Time Status HIP UNI (2V) INCL PEL IF DONE Routine Exams 06/28/25 08:09 Completed US ABDOMEN LIMITED [ABDOMINAL-LIMITED] [US] Routine Exams 06/29/25 08:00 Completed Medications: Medications Generic Name Dose Route Start Last Admin Trade Name Freq PRN Reason Stop Dose Admin Acetaminophen 650 mg 06/27/25 10:22 06/27/25 10:52 Acetaminophen 325 Mg Tablet PO 07/27/25 10:21 650 mg Q6H PRN PRN Administration PAIN AND/OR FEVER Hydrocodone Bitart/Acetaminophen 1 tab 06/27/25 14:00 06/29/25 22:18 Hydrocodone/Apap 5/325 1 Tab Tablet PO 07/02/25 13:59 1 tab Q4H PRN PRN Administration PAIN 5-7 Aspirin 325 mg 06/26/25 15:00 06/29/25 09:33 Aspirin 325 Mg Tablet.Ec PO 07/25/25 10:01 325 mg DAILY DOYLE Administration Calcium Carbonate/Glycine 750 mg 06/28/25 10:00 06/29/25 23:42 Calcium Carbonate 750 Mg 750 Mg Tab.Chew PO 07/28/25 09:59 750 mg BID DOYLE Administration Cyanocobalamin 1,000 mcg 06/26/25 10:00 06/29/25 09:33 Cyanocobalamin 500 Mcg Tablet PO 07/26/25 09:59 1,000 mcg DAILY DOYLE Administration Cyclobenzaprine HCl 5 mg 06/29/25 17:45 06/29/25 18:51 Cyclobenzaprine Hcl 10 Mg Tablet PO 07/29/25 17:44 5 mg TID PRN DOYLE Administration Diazepam 0 mg 06/26/25 16:10 06/28/25 15:04 Diazepam 10 Mg/2 Ml Disp.Syringe IV 07/26/25 16:09 2.5 mg Q2H PRN PRN Administration CIWA SCORE Protocol Folic Acid 1 mg 06/26/25 10:00 06/29/25 09:33 Folic Acid 1 Mg Tablet PO 07/26/25 09:59 1 mg DAILY DOYLE Administration Melatonin 3 mg 06/25/25 23:07 06/29/25 23:42 Melatonin 3 Mg Tablet PO 07/25/25 23:06 3 mg HS PRN PRN Administration INSOMNIA Metoprolol Tartrate 25 mg 06/27/25 11:00 06/29/25 22:12 Metoprolol Tartrate 25 Mg Tab PO 07/27/25 10:59 25 mg BID DOYLE Administration Multivitamins Therapeutic 1 tab 06/26/25 10:00 06/29/25 09:33 Multivitamins,Therapeutic 1 Tab Tab PO 07/26/25 09:59 1 tab QAM DOYLE Administration Naloxone HCl 0.4 mg 06/25/25 17:47 Naloxone Hcl 0.4 Mg/Ml Ml IV 07/25/25 17:46 PRN PRN RESPIRATORY DEPRESSION Nystatin 0 gm 06/26/25 11:00 06/29/25 22:20 Nystatin 15 Gm Powder TP 07/26/25 10:59 1 gm BID DOYLE Administration Ondansetron HCl 4 mg 06/27/25 14:00 Ondansetron Hcl 4 Mg/2 Ml Vial IV 07/27/25 13:59 Q6H PRN PRN N/V Pantoprazole Sodium 20 mg 06/26/25 10:00 06/29/25 09:33 Pantoprazole 20 Mg Tab PO 07/26/25 09:59 20 mg DAILY DOYLE Administration Sodium Chloride 1,000 mg 06/29/25 10:00 06/29/25 22:24 Sodium Chloride 1,000 Mg Tablet PO 07/29/25 09:59 1,000 mg TID DOYLE Administration Thiamine HCl 100 mg 06/26/25 10:00 06/29/25 09:33 Thiamine Hcl 100 Mg Tablet PO 07/26/25 09:59 100 mg DAILY DOYLE Administration Discontinued Medications Generic Name Dose Route Start Last Admin Trade Name Abimael PRN Reason Stop Dose Admin Dexmedetomidine/Sodium Chloride Confirm 06/26/25 09:22 Dexmedetomidine In 0.9 % Nacl 80 Mcg/20 Ml Vial Administered 06/26/25 09:23 Dose 80 mcg IV .STK-MED ONE Diazepam 0 mg 06/25/25 17:44 Diazepam 5 Mg Tablet PO 07/25/25 17:43 Q2H PRN PRN CIWA SCORE Protocol Diazepam 0 mg 06/26/25 14:48 06/26/25 15:07 Diazepam 5 Mg Tablet PO 07/26/25 14:47 2.5 mg Q2H PRN PRN Administration CIWA SCORE Protocol Diphenhydramine HCl 12.5 - 25 mg 06/26/25 14:30 06/26/25 20:39 Diphenhydramine Hcl 50 Mg/Ml Vial IV 06/27/25 14:29 25 mg Q6H PRN PRN Administration FOR INTOLERABLE ITCHING Ephedrine Sulfate Confirm 06/26/25 11:31 Ephedrine Sulfate 50 Mg/Ml Administered 06/26/25 11:32 Dose 50 mg .ROUTE .STK-MED ONE Famotidine 20 mg 06/26/25 09:30 06/26/25 09:45 Famotidine 20 Mg/1 Vial IV 06/26/25 20:00 20 mg 1HRPRIOR DOYLE Administration Fentanyl Citrate Confirm 06/26/25 09:22 Fentanyl Citrate 100 Mcg/2 Ml* Vial Administered 06/26/25 09:23 Dose 100 mcg .ROUTE .STK-MED ONE Hydromorphone HCl 0.5 mg 06/25/25 14:01 06/25/25 14:15 Hydromorphone 1 Mg/1ml Inj IV 06/25/25 14:02 0.5 mg STAT ONE Administration Hydromorphone HCl Confirm 06/25/25 14:09 Hydromorphone 1 Mg/1ml Inj Administered 06/25/25 14:10 Dose 1 mg .ROUTE .STK-MED ONE Hydromorphone HCl 0.5 mg 06/25/25 14:55 06/25/25 15:07 Hydromorphone 1 Mg/1ml Inj IV 06/25/25 14:56 0.5 mg STAT ONE Administration Hydromorphone HCl Confirm 06/25/25 15:03 Hydromorphone 1 Mg/1ml Inj Administered 06/25/25 15:04 Dose 1 mg .ROUTE .STK-MED ONE Hydromorphone HCl 1 mg 06/25/25 17:46 06/26/25 03:35 Hydromorphone 1 Mg/1ml Inj IV 06/30/25 17:45 1 mg Q4H PRN PRN Administration PAIN Hydromorphone HCl 1 mg 06/27/25 14:00 06/28/25 12:22 Hydromorphone 1 Mg/1ml Inj IV 06/29/25 02:00 1 mg Q2H PRN PRN Administration PAIN 8-10 Sodium Chloride 1,000 mls @ 999 mls/hr 06/25/25 14:01 06/25/25 15:20 Sodium Chloride 0.9% 1000 Ml IV 06/25/25 15:01 Infused .Q1H1M STA Infusion Sodium Chloride Confirm 06/25/25 14:10 Sodium Chloride 0.9% 1000 Ml Administered 06/25/25 14:11 Dose 1,000 mls @ ud .ROUTE .STK-MED ONE Sodium Chloride 1,000 mls @ 100 mls/hr 06/25/25 17:23 06/25/25 20:13 Sodium Chloride 0.9% 1000 Ml IV 07/25/25 17:22 Not Given .Q10H DOYLE Cefazolin Sodium 2 gm/ Sodium 100 mls @ 200 mls/hr 06/26/25 10:00 06/26/25 15:22 Chloride IV 06/26/25 10:29 Not Given ONCALLTOOR ONE TRANEXAMIC ACID IN NACL,ISO-OS 1,000 mg in 100 mls @ 600 mls/hr 06/25/25 17:47 06/25/25 20:13 Tranexamic 1,000 Mg/100ml-Nacl IV 06/25/25 17:56 Not Given ONCE ONE TRANEXAMIC ACID IN NACL,ISO-OS 1,000 mg in 100 mls @ 600 mls/hr 06/26/25 08:00 Tranexamic 1,000 Mg/100ml-Nacl IV 06/26/25 23:00 ONCALLTOOR DOYLE Dextrose/Sodium Chloride 1,000 mls @ 100 mls/hr 06/26/25 08:00 Dextrose 5%-Ns Iv Solution 1000 Ml IV 07/26/25 07:59 .Q10H DOYLE Sodium Chloride 1,000 mls @ 30 mls/hr 06/26/25 09:30 06/26/25 09:47 Sodium Chloride 0.9% 1000 Ml IV 06/27/25 18:49 30 mls/hr .Q24H DOYLE Administration Sodium Chloride Confirm 06/26/25 11:53 Sodium Chloride 0.9% 1000 Ml Administered 06/26/25 11:54 Dose 1,000 mls @ ud .ROUTE .STK-MED ONE Phenylephrine HCl 10 mg/ 250 mls @ 90 mls/hr 06/26/25 11:57 Dextrose IV 07/26/25 11:56 .Q2H47M PRN HYPOTENSION Protocol 60 MCG/MIN Sodium Chloride 1,000 mls @ 100 mls/hr 06/26/25 14:45 06/27/25 10:16 Sodium Chloride 0.9% 1000 Ml IV 06/26/25 23:30 Not Given .Q10H DOYLE Cefazolin Sodium 2 gm/ Sodium 100 mls @ 200 mls/hr 06/26/25 15:00 06/26/25 23:25 Chloride IV 06/26/25 23:29 200 mls/hr Q8H DOYLE Administration Potassium Chloride/Dextrose/Sod Cl 1,000 mls @ 200 mls/hr 06/27/25 08:30 06/28/25 11:27 Dextrose 5% -Nacl 0.9% 1000 Ml + Kcl 20 Meq IV 07/27/25 08:29 Not Given .Q5H DOYLE Loratadine 10 mg 06/26/25 14:30 Loratadine 10 Mg Tablet PO 06/27/25 14:29 QDP PRN ITCHING Lorazepam 1 mg 06/25/25 14:56 06/25/25 15:06 Lorazepam 2 Mg/1 Ml 2 Mg Vial IV 06/25/25 14:57 1 mg STAT ONE Administration Lorazepam 1 mg 06/26/25 09:20 06/26/25 09:46 Lorazepam 2 Mg/1 Ml 2 Mg Vial IV 06/26/25 09:21 1 mg STAT ONE Administration Lorazepam 1 mg 06/26/25 13:26 06/26/25 15:21 Lorazepam 2 Mg/1 Ml 2 Mg Vial IV 06/26/25 13:27 Not Given STAT ONE Lorazepam 20 mg 06/26/25 13:36 Lorazepam 20 Mg/10 Ml Mdv .ROUTE 06/26/25 13:37 .STK-MED ONE Metoclopramide HCl 10 mg 06/26/25 09:30 06/26/25 09:45 Metoclopramide Hcl 10 Mg/2 Ml Vial IV 06/26/25 20:00 10 mg 1HRPRIOR DOYLE Administration Midazolam HCl Confirm 06/26/25 09:22 Midazolam Hcl 2 Mg/2 Ml Vial Administered 06/26/25 09:23 Dose 2 mg .ROUTE .STK-MED ONE Midazolam HCl Confirm 06/26/25 13:08 Midazolam Hcl 2 Mg/2 Ml Vial Administered 06/26/25 13:09 Dose 2 mg .ROUTE .STK-MED ONE Morphine Sulfate Confirm 06/26/25 09:26 Morphine Sulfate 5 Mg/10 Ml Pf Ampul Administered 06/26/25 09:27 Dose 5 mg .ROUTE .STK-MED ONE Morphine Sulfate 2 mg 06/26/25 14:30 Morphine Sulfate 2 Mg/Ml Inj IV 06/27/25 14:29 .Q30MIN PRN PRN BREAKTHROUGH ,SEVERE PAIN Nalbuphine HCl 5 mg 06/26/25 14:30 Nalbuphine Hcl 10 Mg/Ml Ampul IV 06/27/25 14:29 Q6H PRN PRN FOR INTOLERABLE ITCHING Naloxone HCl 0.1 mg 06/26/25 14:30 Naloxone Hcl 0.4 Mg/Ml Ml IV 06/27/25 14:29 PRN PRN Non-Formulary Medication 20 mg 06/26/25 10:00 Omeprazole 20 Mg [Prilosec 20 Mg] PO 07/26/25 09:59 DAILY DOYLE Non-Formulary Medication 1 each 06/27/25 10:00 06/27/25 10:17 Hold Narcotic Analgesics/Sedatives 1 Each Each 06/27/25 10:01 Not Given DAILY DOYLE Ondansetron HCl 4 mg 06/25/25 14:01 06/25/25 14:12 Ondansetron Hcl 4 Mg/2 Ml Vial IV 06/25/25 14:02 4 mg STAT ONE Administration Ondansetron HCl Confirm 06/25/25 14:09 Ondansetron Hcl 4 Mg/2 Ml Vial Administered 06/25/25 14:10 Dose 4 mg .ROUTE .STK-MED ONE Ondansetron HCl 4 mg 06/26/25 14:30 Ondansetron Hcl 4 Mg/2 Ml Vial IV 06/27/25 14:29 PRN PRN NAUSEA Oxycodone/Acetaminophen 1 - 2 tab 06/26/25 14:30 Oxycodone Hcl/Apap 5 Mg/325 Mg Tablet PO 06/27/25 14:29 Q4H PRN PRN MODERATE PAIN Phenylephrine HCl Confirm 06/26/25 11:01 Phenylephrine 10 Mg/Ml Vial Administered 06/26/25 11:02 Dose 10 mg .ROUTE .STK-MED ONE Potassium Chloride 20 meq 06/27/25 08:00 06/27/25 18:23 Potassium Chloride Tab 10 Meq Tab PO 06/27/25 14:01 20 meq Q2H DOYLE Administration Potassium Chloride Confirm 06/27/25 18:22 Potassium Chloride Tab 10 Meq Tab Administered 06/27/25 18:23 Dose 20 meq .ROUTE .STK-MED ONE Potassium Chloride 20 meq 06/29/25 07:45 06/29/25 15:46 Potassium Chloride Tab 10 Meq Tab PO 06/29/25 13:46 20 meq Q2H DOYLE Administration Propofol Confirm 06/26/25 10:32 Propofol 200 Mg/20 Ml Vial Administered 06/26/25 10:33 Dose 200 mg IV .STK-MED ONE Propofol Confirm 06/26/25 11:57 Propofol 200 Mg/20 Ml Vial Administered 06/26/25 11:58 Dose 200 mg IV .STK-MED ONE Sodium Chloride 10 ml 06/26/25 14:30 Normal Saline 10 Ml Flush IJ 06/27/25 14:29 PRN PRN MAINTAIN IV/SALINE LOCK Sodium Chloride 1,000 mg 06/29/25 10:00 Sodium Chloride 1,000 Mg Tablet PO 07/29/25 09:59 BID DOYLE Multi-Disciplinary Progress Notes: Multi-Disciplinary Progress Notes 06/29/25 11:30 (created 06/29/25 14:06) Case Management Note by Lisa Mayer S/W CODY NAVAS THIS AM- HE REPORTS PATIENT IS A NONFUNCTIONING ALCOHOLIC THAT IS UNABLE TO CARE FOR HIMSELF AT HOME. HE WISHES FOR PATIENT TO GO TO INPT ALCOHOL REHAB BUT REPORTS PATIENT IS LIKELY NOT AGREEABLE. HE REPORTS PATIENT'S HOME IS NOT IN GOOD SHAPE. HE REPORTS HE CAN COME PICK PATIENT UP AT DC BUT PATIENT IS NOT WELCOME TO STAY WITH HIM [facility] PHONE NUMBER- [phone] S/W PATIENT THIS AM- HE DECLINED INPT ALCOHOL TREATMENT PROGRAM. HE ALSO DECLINED INPT PHYSICAL REHAB. HE PLANS TO RETURN TO HIS HOME AJIT. HE REPORTS HE HAS RUNNING WATER AND ELECTRICITY. HE CURRENTLY HAS HIS WATER TURNED OFF D/T CONCERN FOR LEAK BUT REPORTS HE CAN TURN IT BACK ON WHEN NEEDED. DISCUSSED NEED FOR PHYSICAL THERAPY TO EVAL FOR NEEDS. HE REPORTS HE DOESN'T FEEL WEAK AT ALL AND FEELS LIKE HE WILL DO FINE AT HOME. HE IS AGREEABLE TO WORK WITH PT. PATIENT IS SELF PAY. ANY OTPT PT OR HHC PT WOULD BE PRIVATE PAY-WILL DISCUSS WITH PATIENT. WILL NEED TO ARRANGE FOR STANDARD WALKER AT TIME OF DC WELL. PATIENT REPORTS HE HAS TRANSPORTATION AND HAS MONEY IN THE BANK. HE DENIES ANY NEEDS AT THIS TIME. ACO S/W PATIENT- HE DENIED ANY NEEDS FROM THEM WELL Initialized on 06/29/25 14:06 - END OF NOTE 06/29/25 10:54 Occupational Therapy Note by Grace (L#[id number])Sheyla OT will hold treatment session this date as patient is noncompliant with hip precautions and learning compensatory strategies towards compliance. OT held discussion with physical therapist and its most important for his mobility at this time. OT will follow up as appropriate pending patient's compliance. Initialized on 06/29/25 10:54 - END OF NOTE Assessment/Plan (1) Subcapital fracture of right hip Current Visit: Yes Status: Acute Qualifiers: Encounter type: initial encounter Fracture type: closed Qualified Code(s): S72.011A - Unspecified intracapsular fracture of right femur, initial encounter for closed fracture Assessment & Plan: -Pelvis/hip X-ray: slightly impacted right subcapital femur fracture with osteopenia -Ortho consulted; underwent surgical repair, now POD #4 -Post-op confusion resolved; restraints discontinued -Pain control: initially IV narcotics, now acetaminophen per patient preference -ASA 325 mg daily started by ortho; SCDs in use for DVT prophylaxis -Olsen catheter discontinued -PT to evaluate today -Repeat right hip xray 06/28 showing intact right hip implant with no evidence of displacement or loosening. No significant interval changes. Code(s): S72.011A - UNSP INTRACAPSULAR FRACTURE OF RIGHT FEMUR, INIT FOR CLOS FX (2) Fall (on) (from) other stairs and steps, initial encounter Current Visit: Yes Status: Acute Assessment & Plan: -Mechanical fall onto concrete with resultant hip fracture and knee pain -Maintain fall precautions and supportive care Code(s): W10.9XXA - FALL (ON) (FROM) UNSPECIFIED STAIRS AND STEPS, INIT ENCNTR (3) HTN (hypertension) Current Visit: Yes Status: Acute Assessment & Plan: -BP 157/86 on arrival, likely pain-related -Improved with pain management; not on chronic antihypertensives -Continue monitoring inpatient Code(s): I10 - ESSENTIAL (PRIMARY) HYPERTENSION (4) Hypokalemia Current Visit: Yes Status: Acute Assessment & Plan: -K+ 3.4 -Replenish per potassium protocol -BMP trended q6h, further replacement PRN Code(s): E87.6 - HYPOKALEMIA (5) Hyponatremia Current Visit: Yes Status: Acute Assessment & Plan: -Na 129 on admission, persistent despite fluid challenge -currently at 126 -Likely 2/2 to beer potomania -IVF stopped- Fluid restriction initiated 06/28/25 -Urine Na 44; urine osmolality WNL -Add sodium chloride tabs 1000mg TID -Sodium and potassium trended q6h Code(s): E87.1 - HYPO-OSMOLALITY AND HYPONATREMIA (6) Right knee pain Current Visit: Yes Status: Acute Assessment & Plan: -Reported pain and edema following fall -X-ray reviewed with ortho: non-concerning, likely congenital variation -Managed with supportive care and acetaminophen Code(s): M25.561 - PAIN IN RIGHT KNEE (7) Tachycardia Current Visit: Yes Status: Acute Assessment & Plan: -HR [id number]; initially managed with CIWA protocol -Diazepam ineffective, started metoprolol BID with good rate control -Continue telemetry Code(s): R00.0 - TACHYCARDIA, UNSPECIFIED (8) Vitamin B12 deficiency Current Visit: Yes Status: Acute Assessment & Plan: -B12 202 on labs -Daily oral replacement initiated -Iron panel with saturation at 31% -Continue to monitor CBC Code(s): E53.8 - DEFICIENCY OF OTHER SPECIFIED B GROUP VITAMINS (9) Yeast dermatitis Current Visit: Yes Status: Acute Assessment & Plan: -Groin yeast infection identified -Nystatin cream prescribed; patient intermittently refusing -Encourage compliance and monitor for progression Code(s): B37.2 - CANDIDIASIS OF SKIN AND NAIL (10) Marijuana dependence Current Visit: Yes Status: Chronic Assessment & Plan: -Monthly use reported -Counseling provided; advised cessation Code(s): F12.20 - CANNABIS DEPENDENCE, UNCOMPLICATED (11) Alcohol use Current Visit: No Status: Chronic Assessment & Plan: -Daily 89 beers; last intake evening prior to admission -Managed on CIWA protocol; Valium administered as indicated - last dose 06/28 -Transferred to ICU-adjacent bed after confusion episode which has resolved- can down grade to med surg bed -AST 90-71- 81, hepatitis panel pending, liver ultrasound obtained and pending -Started on thiamine, folate, and multivitamin supplementation -Ongoing counseling for cessation - patient thinking about rehab VTE: SCD's/325mg daily aspirin per ortho PPI: Protonix Next of KIN: Child- Ren Navarrete D/C plan: pending ortho recs Code status:Full Plan of care time: > 40 minutes Code(s): S72.011A - UNSP INTRACAPSULAR FRACTURE OF RIGHT FEMUR, INIT FOR CLOS FX (2) Fall (on) (from) other stairs and steps, initial encounter Current Visit: Yes Status: Acute Code(s): W10.9XXA - FALL (ON) (FROM) UNSPECIFIED STAIRS AND STEPS, INIT ENCNTR (3) HTN (hypertension) Current Visit: Yes Status: Acute Code(s): I10 - ESSENTIAL (PRIMARY) HYPERTENSION (4) Hypokalemia Current Visit: Yes Status: Acute Code(s): E87.6 - HYPOKALEMIA (5) Hyponatremia Current Visit: Yes Status: Acute Code(s): E87.1 - HYPO-OSMOLALITY AND HYPONATREMIA (6) Right knee pain Current Visit: Yes Status: Acute Code(s): M25.561 - PAIN IN RIGHT KNEE (7) Tachycardia Current Visit: Yes Status: Acute Code(s): R00.0 - TACHYCARDIA, UNSPECIFIED (8) Vitamin B12 deficiency Current Visit: Yes Status: Acute Code(s): E53.8 - DEFICIENCY OF OTHER SPECIFIED B GROUP VITAMINS (9) Yeast dermatitis Current Visit: Yes Status: Acute Code(s): B37.2 - CANDIDIASIS OF SKIN AND NAIL (10) Marijuana dependence Current Visit: Yes Status: Chronic Code(s): F12.20 - CANNABIS DEPENDENCE, UNCOMPLICATED (11) Alcohol use Current Visit: No Status: Chronic Code(s): Z78.9 - OTHER SPECIFIED HEALTH STATUS
[2025-06-30 05:51] LABS: Hematocrit 29.8 % (40.1-51.0); Hemoglobin 10.2 g/dL (13.7-17.5); Mean Corpuscular Hemoglobin 32.5 pg (25.7-32.2); Mean Corpuscular Hgb Concent. 34.2 g/dL (32.3-36.5); Platelet Count 326 x10^3/uL (163-337); Red Blood Count 3.14 x10^6/uL (4.63-6.08); White Blood Count 7.3 x10^3/uL (4.23-9.07)
[2025-06-30 06:17] LABS: Calcium 8.9 mg/dL (8.4-10.2); Carbon Dioxide 25.0 mmol/L (22-30); Creatinine 1 0.71 mg/dL (0.66-1.25); EST GLOMERULAR FILTRATION RATE 103.7 ML/MIN; Glucose 103.0 mg/dL (74-106); Potassium 3.7 mmol/L (3.5-5.1); SGOT/AST 96.0 U/L (17-59); SGPT/ALT 48.0 U/L (0-50); Total Protein 6.6 g/dL (6.3-8.2)
[2025-06-30 07:09] VITALS: O2SAT 96
[2025-06-30] MEDS ORDERED: Cyclobenzaprine 10 MG PO PRN (07:10)
[2025-06-30 08:31] LABS: Calcium 8.9 mg/dL (8.4-10.2); Carbon Dioxide 24.0 mmol/L (22-30); Creatinine 1 0.67 mg/dL (0.66-1.25); EST GLOMERULAR FILTRATION RATE 105.6 ML/MIN; Glucose 105.0 mg/dL (74-106); Potassium 3.9 mmol/L (3.5-5.1)
[2025-06-30 11:25] VITALS: BP 124/66; PULSE 97; TEMP 68.7
[2025-06-30 12:22] LABS: Calcium 8.6 mg/dL (8.4-10.2); Carbon Dioxide 25.0 mmol/L (22-30); Creatinine 1 0.81 mg/dL (0.66-1.25); EST GLOMERULAR FILTRATION RATE 99.7 ML/MIN; Glucose 108.0 mg/dL (74-106); Potassium 4.4 mmol/L (3.5-5.1)
--- NOTE | 2025-06-30 12:50 | PCM.DS ---
Discharge Summary Date of Admission: 06/25/25 17:22 Date of Discharge: 06/30/25 Admitting Physician: JENNY ROSE MD Consults: Consults on Case 06/25/25 18:03 Consult Ortho ROUTINE Primary Care Provider: NO FAMILY DOCTOR Allergies Allergies No Known Drug Allergies Allergy (Unverified 06/25/25 17:32) Hospital Summary - Hospital Course Hospital Course: Mr. Navarrete is a 64-year-old male with a history of daily alcohol use (89 beers/day), hypertension, cataracts, GERD, and occasional marijuana use who presented after a fall down stairs onto concrete with inability to ambulate and severe right knee and hip pain. Imaging demonstrated a slightly impacted right subcapital femur fracture with underlying osteopenia and mild lumbar degenerative changes. 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 He underwent surgical repair of the right hip with Dr. Powers and is now postoperative day four. His postoperative course was notable for transient confusion requiring restraints overnight, attributed to alcohol withdrawal, which resolved by morning. He has been alert, oriented, and participating in therapy since. On admission, he was tachycardic (HR [id number]) and managed initially with CIWA protocol; when diazepam failed to control rate, metoprolol was started with good effect. Blood pressure was elevated on arrival but improved with pain control. Hyponatremia (Na 129 - 131 1) consistent with beer potomania was managed by stopping standard IV fluids, starting fluid restriction, initiating oral sodium chloride tablets, and trending electrolytes every 6 hours. Hypokalemia (K 3.4) was repleted per protocol. Labs were otherwise reassuring with stable hemoglobin (13.6), WBC count improving (10.3 - 7.3), and AST mildly elevated at 90; hepatitis panel remain pending. B12 was low at 202, for which oral replacement was started. A groin yeast infection was treated with nystatin cream, though patient intermittently refused application. Olsen catheter has been removed, and he remains on bed rest with PT evaluation pending. He declines rehabilitation placement at this time but expresses interest in quitting alcohol independently, though remains ambivalent about formal rehab programs. Total of 40 days of 325mg ASA per ortho. Dressing intact until follow up with Ortho. Follow up with ortho in one week. OP PT has been scheduled. Discharge Note New Diagnosis: Hip fracture New Medications: ASA 325mg daily x 40 days per ortho; [place], Vitamin B12, Sodium chloride tabs 1000mg TID x 3 days/folic acid/multivitamin/thiamine/ restarted metoprolol 25mg bid Follow Up: PCP/Nephrology - Outpatient testing to order: Will need CMP drawn next week with PCP or nephrology to evaluate sodium levels I spent 35 minutes [id number] with the patient on the day of discharge performing discharge exam, discussing hospital stay and discharge instructions with patient and caregivers, preparation of discharge records, prescriptions & referral forms and addressing any questions/concerns the patient had as documented above. - Vitals & Intake/Output Vital Signs: Vital Signs Temperature 68.7 F 06/30/25 11:00 Pulse Rate 97 H 06/30/25 11:00 Respiratory Rate 16 06/30/25 11:00 Blood Pressure 124/66 06/30/25 11:00 O2 Sat by Pulse Oximetry 96 06/30/25 11:00 Intake & Output: Intake & Output 06/28/25 06/29/25 06/30/25 07/01/25 11:59 11:59 11:59 11:59 Intake Total 4491 860 1680 Output Total 2821 9198 8478 500 Balance 1666 -2065 -370 -500 - Lab Result Diagrams: 06/30/25 05:12 06/30/25 12:05 Lab Results-Last 24 Hrs: Lab Results-Last 24 Hours 06/28/25 06/29/25 06/29/25 Range/Units 05:34 16:10 16:30 WBC (4.23-9.07) x10^3/uL RBC (4.63-6.08) x10^6/uL Hgb (13.7-17.5) g/dL Hct (40.1-51.0) % MCV (79.0-92.2) fL MCH (25.7-32.2) pg MCHC (32.3-36.5) g/dL RDW (11.6-14.4) % Plt Count (163-337) x10^3/uL MPV (9.4-12.4) fL Sodium 127 L (135-145) mmol/L Potassium 3.6 3.7 (3.5-5.1) mmol/L Chloride 97 L (98-107) mmol/L Carbon Dioxide 24 (22-30) mmol/L Anion Gap 10.0 (5-15) MEQ/L BUN 7 L (9-20) mg/dL Creatinine 0.64 L (0.66-1.25) mg/dL Estimated GFR 107.0 ML/MIN Glucose 119 H (74-106) mg/dL Calcium 8.6 (8.4-10.2) mg/dL Magnesium (1.6-2.3) mg/dL Total Bilirubin (0.2-1.3) mg/dL AST (17-59) U/L ALT (0-50) U/L Alkaline Phosphatase (38-126) U/L Serum Total Protein (6.3-8.2) g/dL Albumin (3.5-5.0) g/dL Hepatitis A IgM Ab Negative (Negative) Hep Bs Antigen Negative (Negative) Hep B Core IgM Ab Negative (Negative) Hep C Ab Signal/Cutoff Non Reactive (Non Reactive) Hepatitis C Interp Comment (.) 06/29/25 06/30/25 06/30/25 Range/Units 20:17 01:10 05:12 WBC 7.3 (4.23-9.07) x10^3/uL RBC 3.14 L (4.63-6.08) x10^6/uL Hgb 10.2 L (13.7-17.5) g/dL Hct 29.8 L (40.1-51.0) % MCV 94.9 H (79.0-92.2) fL MCH 32.5 H (25.7-32.2) pg MCHC 34.2 (32.3-36.5) g/dL RDW 12.6 (11.6-14.4) % Plt Count 326 D (163-337) x10^3/uL MPV 9.6 (9.4-12.4) fL Sodium 128 L 126 L (135-145) mmol/L Potassium 3.7 3.9 (3.5-5.1) mmol/L Chloride 98 97 L (98-107) mmol/L Carbon Dioxide 25 22 (22-30) mmol/L Anion Gap 9.1 11.3 (5-15) MEQ/L BUN 8 L 8 L (9-20) mg/dL Creatinine 0.64 L 0.63 L (0.66-1.25) mg/dL Estimated GFR 107.0 107.6 ML/MIN Glucose 118 H 106 (74-106) mg/dL Calcium 8.5 8.4 (8.4-10.2) mg/dL Magnesium (1.6-2.3) mg/dL Total Bilirubin (0.2-1.3) mg/dL AST (17-59) U/L ALT (0-50) U/L Alkaline Phosphatase (38-126) U/L Serum Total Protein (6.3-8.2) g/dL Albumin (3.5-5.0) g/dL Hepatitis A IgM Ab (Negative) Hep Bs Antigen (Negative) Hep B Core IgM Ab (Negative) Hep C Ab Signal/Cutoff (Non Reactive) Hepatitis C Interp (.) 06/30/25 06/30/25 06/30/25 Range/Units 05:12 08:12 12:05 WBC (4.23-9.07) x10^3/uL RBC (4.63-6.08) x10^6/uL Hgb (13.7-17.5) g/dL Hct (40.1-51.0) % MCV (79.0-92.2) fL MCH (25.7-32.2) pg MCHC (32.3-36.5) g/dL RDW (11.6-14.4) % Plt Count (163-337) x10^3/uL MPV (9.4-12.4) fL Sodium 131 L 131 L 129 L (135-145) mmol/L Potassium 3.7 3.9 4.4 (3.5-5.1) mmol/L Chloride 98 98 97 L (98-107) mmol/L Carbon Dioxide 25 24 25 (22-30) mmol/L Anion Gap 12.0 12.7 11.9 (5-15) MEQ/L BUN 8 L 7 L 9 (9-20) mg/dL Creatinine 0.71 0.67 0.81 (0.66-1.25) mg/dL Estimated GFR 103.7 105.6 99.7 ML/MIN Glucose 103 105 108 H (74-106) mg/dL Calcium 8.9 8.9 8.6 (8.4-10.2) mg/dL Magnesium 2.0 (1.6-2.3) mg/dL Total Bilirubin 0.70 (0.2-1.3) mg/dL AST 96 H (17-59) U/L ALT 48 (0-50) U/L Alkaline Phosphatase 74 (38-126) U/L Serum Total Protein 6.6 (6.3-8.2) g/dL Albumin 3.3 L (3.5-5.0) g/dL Hepatitis A IgM Ab (Negative) Hep Bs Antigen (Negative) Hep B Core IgM Ab (Negative) Hep C Ab Signal/Cutoff (Non Reactive) Hepatitis C Interp (.) Micro Results-Entire Visit: Microbiology 06/25/25 15:15 Urine Culture - Final Catherized NO GROWTH - Radiology Exams Ordered Rad Exams-Entire Visit: Radiology Procedures Category Date Time Status US ABDOMEN LIMITED [ABDOMINAL-LIMITED] [US] Routine Exams 06/29/25 08:00 Completed - Procedures and Test Procedures and Tests throughout Hospitalization: Therapy Orders & Screens 06/25/25 17:51 OT Screen per Nursing Assess ONCE Comment: Protocol Order Physician Instructions: Greater than 3 points order OT Admission Screening Reason For Exam: Triggered on Admission Diagnosis: subcapital fx of R hip Open Wound/Cellutlitis/Pressure Ulcers: No Acute Fx/ORIF/Change in wt bearing status: Yes Severe MUSCULOSKELETAL pain: No ADL Dysfunction: Yes Acute CVA w/Hemiparesis/Hemiplegia: No Decreased Functional Mobility/Strength: Yes Sprain/Strain: No Acute Post-op Mobility Dysfunction: No Total Points: 9 PT Screen per Nursing Assess ONCE Comment: Protocol Order Physician Instructions: Greater than 3 points order PT Admission Screenin Reason For Exam: Triggered on Admission Diagnosis: subcapital fx of R hip Open Wound/Cellutlitis/Pressure Ulcers: No Acute Fx/ORIF/Change in wt bearing status: Yes Severe MUSCULOSKELETAL pain: No ADL Dysfunction: Yes Acute CVA w/Hemiparesis/Hemiplegia: No Decreased Functional Mobility/Strength: Yes Sprain/Strain: No Acute Post-op Mobility Dysfunction: No Total Points: 9 06/26/25 10:18 PT Eval & Treat ( Order) ONCE Reason for Eval:: after surgery Diagnosis: hip fracture 06/26/25 14:21 Incentive Spirometry [id number] Comment: Diagnosis: hip fracture 06/26/25 14:22 OT Eval and Treat (MD Order) ROUTINE Comment: Physician Instructions: Reason For Exam: Diagnosis: hip fracture 06/26/25 15:17 Oxygen Nasal Cannula 2 lpm Comment: Diagnosis: hip fracture Discharge Exam General Appearance: no apparent distress Neurologic Exam: alert, 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, cooperative Eye Exam: PERRL Ears, Nose, Throat Exam: normal ENT inspection Neck Exam: normal inspection Respiratory Exam: normal breath sounds, lungs clear Cardiovascular Exam: regular rate/rhythm, normal heart sounds Gastrointestinal/Abdomen Exam: soft, normal bowel sounds Male Genitalia Exam: deferred Rectal Exam: deferred Back Exam: normal inspection Extremity Exam: normal inspection Skin Exam: normal color Wound Assessment: Skin/Wound Assessment Wound/Incision Assessment Start: 06/26/25 10:36 Text: Status: Active Freq: Q6H Protocol: Document 06/30/25 10:00 DMP (Rec: 06/30/25 11:07 DMP [id number]) Wound/Incision Assessment LAT RT HIP Wound Assessment Shift Assessment Wound Type Incision Wound Stage Non Pressure Wound Dressing Status Dry & Intact Drainage Amount None General Appearance Clean/Dry Surrounding Tissue Edematous Primary Dressing Hydrocolloid Comment mild shadowing noted Wound Photo Photo Taken No Final Diagnosis/Problem List - Final Discharge Diagnosis/Problem (1) Subcapital fracture of right hip Current Visit: Yes Status: Acute Assessment & Plan: Pelvis/hip X-ray: slightly impacted subcapital fracture; repeat imaging POD 3 showed intact implant without displacement. Ortho consulted; surgical repair completed. Pain controlled on acetaminophen (refuses opioids). ASA 325 mg daily for DVT prophylaxis PT/OT to evaluate prior to discharge. Olsen removed. Code(s): S72.011A - UNSP INTRACAPSULAR FRACTURE OF RIGHT FEMUR, INIT FOR CLOS FX (2) Fall (on) (from) other stairs and steps, initial encounter Current Visit: Yes Status: Acute Assessment & Plan: Mechanical fall onto concrete. Fall precautions maintained Code(s): W10.9XXA - FALL (ON) (FROM) UNSPECIFIED STAIRS AND STEPS, INIT ENCNTR (3) HTN (hypertension) Current Visit: Yes Status: Acute Assessment & Plan: Elevated BP on admission, improved with analgesia. Not on chronic antihypertensives; continue outpatient monitoring. Code(s): I10 - ESSENTIAL (PRIMARY) HYPERTENSION (4) Hypokalemia Current Visit: Yes Status: Acute Assessment & Plan: K 3.4 on admission. Repleted per protocol; continue BMP surveillance outpatient. Code(s): E87.6 - HYPOKALEMIA (5) Hyponatremia Current Visit: Yes Status: Acute Assessment & Plan: Admission Na 129 -131 on discharge IVF discontinued; fluid restriction initiated with NaCl tabs 1g TID continue x 3 more days- recheck sodium levels OP next week Nephrology referral made for OP follow up Code(s): E87.1 - HYPO-OSMOLALITY AND HYPONATREMIA (6) Right knee pain Current Visit: Yes Status: Acute Assessment & Plan: X-ray without acute fracture; likely congenital variation. Managed conservatively with acetaminophen and supportive care. Code(s): M25.561 - PAIN IN RIGHT KNEE (7) Tachycardia Current Visit: Yes Status: Acute Assessment & Plan: HR [id number], refractory to diazepam. Started metoprolol BID with good rate control. Stable on telemetry Code(s): R00.0 - TACHYCARDIA, UNSPECIFIED (8) Vitamin B12 deficiency Current Visit: Yes Status: Acute Assessment & Plan: B12 202. Daily oral supplementation initiated. Monitor CBC as outpatient. Code(s): E53.8 - DEFICIENCY OF OTHER SPECIFIED B GROUP VITAMINS (9) Yeast dermatitis Current Visit: Yes Status: Acute Assessment & Plan: Groin yeast infection. Nystatin cream prescribed; encourage compliance. Code(s): B37.2 - CANDIDIASIS OF SKIN AND NAIL (10) Marijuana dependence Current Visit: Yes Status: Chronic Assessment & Plan: Occasional use. Counseling provided; advised cessation. Code(s): F12.20 - CANNABIS DEPENDENCE, UNCOMPLICATED (11) Alcohol use Current Visit: No Status: Chronic Assessment & Plan: Long-standing heavy use (89 beers/day). Managed inpatient with CIWA protocol; last Valium dose 06/28. Transient delirium resolved. AST elevated; hepatitis panel pending, liver ultrasound obtained. Started on thiamine, folate, and multivitamin supplementation. Patient considering rehab but currently declines formal enrollment Code(s): Z78.9 - OTHER SPECIFIED HEALTH STATUS - Discharge Discharge Date: 06/30/25 Disposition: Home, Self-Care Condition: Stable Prescriptions: New Hydrocodone/Acetaminophen [Hydrocodone-Acetamin 5-325 mg] 1 - 2 tab PO Q4HPRN PRN #20 tablet MDD 6 PRN Reason: Pain Aspirin EC 325 mg [Ecotrin 325 MG] 325 mg PO DAILY 30 Days #30 tablet Folic Acid 1 mg [Folate 1 mg] 1 mg PO DAILY 30 Days #30 tablet Metoprolol Tartrate 25 mg [Lopressor 25MG Tab] 25 mg PO BID 30 Days #30 tablet Nystatin Powder 15 gm [Nystop Powder 15 gm] 0 gm TP BID Sodium Chloride 1,000 mg PO TID 3 Days #9 tablet Multivitamins,Therapeutic Tab* [Theragran Multivitamin] 1 tab PO QAM 30 Days #30 tablet Thiamine HCl 100 mg [Vitamin B-1 100 mg] 100 mg PO DAILY 30 Days #30 tablet Cyanocobalamin 500 Mcg [Vitamin B-12 500 MCG] 1,000 mcg PO DAILY 30 Days #30 tablet Continue Omeprazole 20 MG [Prilosec 20 mg] 20 mg PO DAILY Outpatient Orders: Physical Therapy Eval & Treat Facility: [facility], Location: PHYSICAL THERAPY Additional Instructions: [facility] WILL CALL YOU IN A FEW DAYS TO SCHEDULE YOU FOR OUTPT THERAPY, YOU CAN FOLLOW UP WITH THEM AT [phone] You will need labs next week to check your sodium levels Follow up with: JUDITH MCGINNIS NP [Non-Physician Practitioner, UNKNOWN] - 07/09/25 1:30 pm SHAMIR DIAS [CONSULTING PHYSICIAN, NEPHROLOGY]
== END 2025-06-30 14:50 | disposition home or self-care (01) | DRG 522 ==
LOC: ED 13:41 → MED SURG 17:22 → ICU 06-26 20:02 → MED SURG 06-26 20:02
PROVIDERS: ADMIT Internal Medicine; ATTEND Internal Medicine
PROC: 0SR90J9 Replacement of Right Hip Joint with Synthetic Substitute, Cemented, Open Approach (ICD-10-PCS; principal; 2025-06-26)
DX: S72.011A Unspecified intracapsular fracture of right femur, initial encounter for closed fracture (principal); E87.1 Hypo-osmolality and hyponatremia; F10.90 Alcohol use, unspecified, uncomplicated; I10 Essential (primary) hypertension; K21.9 Gastro-esophageal reflux disease without esophagitis; W10.9XXA Fall (on) (from) unspecified stairs and steps, initial encounter; R41.0 Disorientation, unspecified; E87.6 Hypokalemia; M25.561 Pain in right knee; R00.0 Tachycardia, unspecified; E53.8 Deficiency of other specified B group vitamins; B37.2 Candidiasis of skin and nail; F12.20 Cannabis dependence, uncomplicated; R53.1 Weakness; Z79.899 Other long term (current) drug therapy